=== PATIENT | female | born 1995 | race Caucasian/White ===

== ENCOUNTER 2019-04-29 18:40 | Emergency (ER) | payer OTHER, SELFPAY ==
[2019-04-29 18:51] VITALS: BP 112/73; PULSE 71; RESP 20; TEMP 36.9; O2SAT 100
--- NOTE | 2019-04-29 19:09 | ED.GENADULT ---
HPI - General Adult General Chief complaint: Upper Respiratory Infection Stated complaint: throat pain, med refill Time Seen by Provider: 04/29/19 19:09 Source: patient, family and RN notes reviewed Mode of arrival: ambulatory Limitations: no limitations History of Present Illness HPI narrative: 24 year old female who presents to [facility] care accompanied by significant other with complaints of continued severe post op throat pain from tonsillectomy done on the of this month. Patient states that she has been trying to get ahold of her doctor but not able to. Patient has healing white areas to tonsil region from surgical procedure no active bleeding noted. Patient continues to state pain is sharp rates it a 8/10 can't eat and drink due to pain. Patient denies any fevers chills or sweats, no nausea or episodes of vomiting. Has tried Ibuprofen but is not helping. MD complaint: post op pain Onset (ago): day(s) (since of thiss month) Location: mouth (throat) Radiation: non-radiation Severity: severe Severity scale (1-10): 8 (throat) Quality: sharp Pain Consistency: constant Relieving factors: medication Exacerbating factors: other (eating and drinking) Associated symptoms: denies other symptoms Treatments prior to arrival: other (prescription pain medication but is out) Related Data Allergies Allergy/AdvReac Type Severity Reaction Status Date / Time metronidazole Allergy Mild ITCHING,JOYCE Verified 04/29/19 19:02 H morphine Allergy Unknown h/a and Verified 04/29/19 19:02 lightheaded metoclopramide [From Reglan] Allergy Agitated Verified 04/29/19 19:02 promethazine AdvReac Intermediate Dizziness Verified 04/29/19 19:02 Review of Systems Review of Systems: Narrative: CONSTITUTIONAL: Denies fever, chills, or sweats. EYES: Denies visual changes, redness, or discharge. ENT: Denies rhinorrhea, congestion,positive sore throat, or otalgia. CARDIOVASCULAR: Denies chest pain, palpitations, or edema. RESPIRATORY: Denies cough or dyspnea. GASTROINTESTINAL: Denies abdominal pain, nausea, vomiting, or diarrhea. GENITOURINARY: Denies dysuria or hematuria. SKIN: Denies rash or itching. MUSCULOSKELETAL: Denies back pain, joint pain, or myalgia. NEUROLOGIC: Denies headache, numbness, or weakness. PSYCHIATRIC: Denies anxiety or depression. All systems reviewed & are unremarkable except as noted in HPI and below PMFSH Past Medical History Medical History (Updated 05/05/19 @ 11:48 by Erika Grubbs NP) Anxiety Depression Kidney calculi Surgical History Surgical History (Updated 05/02/19 @ 21:31 by Jose Lopez DO) History of x2 History of tonsillectomy Social History Social History (Updated 05/05/19 @ 11:49 by Erika Grubbs NP) Alcohol intake: current Living arrangements: with family Gender identity (if verbalized by the patient): Female Comments At time of signature, agree with nursing past medical, surgical, social and family history. There is no relevant family history pertinent to the presenting complaint Exam Narrative: Exam Narrative: GENERAL: Well-appearing, well-nourished, and in no acute distress. HEAD: Normocephalic, atraumatic. EYES: PERRLA and EOMI. ENT: Nares clear, no rhinorrhea or epistaxis. Mucous membranes moist.TM's normal with good light reflex, Healing tissue to back of throat from recent tonsillectomy no active bleeding,painful swallowing NECK: Supple.no lymphadenopathy CHEST: Clear to auscultation. No respiratory distress. HEART: Regular rate and rhythm. No murmur heard. Normal peripheral pulses. ABDOMEN: Soft, nontender, non distended, normal active bowel sounds. EXTREMITIES: Normal range of motion. No edema. SKIN: Warm, dry, no rash. NEURO: No focal deficits. Alert and oriented x3. Course Vital Signs Vital signs: Vital Signs Temperature 36.9 C 04/29/19 18:51 Pulse Rate 71 04/29/19 18:51 Respiratory Rate 20 04/29/19 18:51 Blood Pressure 112/73
== END 2019-04-29 19:40 | disposition home or self-care (01) ==
PROVIDERS: Emergency Provider Registered Nurse
DX: G89.18 Other acute postprocedural pain (principal); Z90.89 Acquired absence of other organs; F41.9 Anxiety disorder, unspecified; F32.9 Major depressive disorder, single episode, unspecified
CPT/HCPCS: 99213; G0463

== ENCOUNTER 2019-05-02 21:34 | Day surgery (SDC) | payer OTHER, SELFPAY ==
--- NOTE | 2019-05-02 21:40 | P.PNAN_ITS ---
Anes - Initial Pre Proc Eval Procedure: control post tonsillectomy bleed Date/Time: 05/02/19 21:40 Surgeon: Rad Barreto MD Pre Op Diagnosis: post op tonsillectomy bleed Pre Op Diagnosis: Tonsil Patient Data Age: 24 Gender: F Height: Weight: Allergies Allergy/AdvReac Type Severity Reaction Status Date / Time metronidazole Allergy Mild ITCHING,JOYCE Verified 04/29/19 19:02 H morphine Allergy Unknown h/a and Verified 04/29/19 19:02 lightheaded metoclopramide [From Reglan] Allergy Agitated Verified 04/29/19 19:02 promethazine AdvReac Intermediate Dizziness Verified 04/29/19 19:02 Home Medications Medication Instructions Recorded Confirmed Type acetaminophen-codeine 15 ml PO Q6H PRN #240 ml 04/29/19 Rx Patient hx anesthesia problems: none Family hx anesthesia problems: none [facility] Past Medical History Medical History (Updated 05/02/19 @ 21:30 by Jose Lopez DO) Anxiety Depression Surgical History Surgical History (Updated 05/02/19 @ 21:31 by Jose Lopez DO) History of x2 History of tonsillectomy Social History Social History Smoking status: Current every day smoker Alcohol intake: current Anes - Eval Final PreProcedure Day of Procedure 05/02/19 21:40 Patient weight: normal Heart: regular rate and rhythm Lungs: clear to auscultation and normal air movement Airway: Mallampati scale class II Neurological: alert and oriented Last oral intake: >/= 8 hours ASA classification: II Emergent: yes Anesthetic plan: proceed Anesthesia type and monitoring: general ETT and standard monitoring Informed Consent: The patient's anesthetic plan and its attendant risks and benefits were discussed with the patient/family/POA. Questions were solicited and answers provided to the satisfaction of the patient/family/POA.
--- NOTE | 2019-05-02 22:20 | P.OP_ITS ---
Procedure Note - Detailed Date of procedure: 05/02/19 Pre-op diagnosis: Tonsil Post-op diagnosis: same Procedure performed: Patient was prepped and draped in usual fashion after induction of anesthesia. The McIvor mouth gag was inserted. The tonsils were removed dissection technique hemostasis was obtained electrocautery. The red rubber catheter of the palate retracted the palate and the adenoids inspected the minimum amount of adenoids was removed with suction cautery. Patient awaken ed returned to recovery in good condition. Anesthesia: GLMA Surgeon: Rad Barreto MD Estimated blood loss (mL): 10 Drains: No Packing: No Pathology: none sent Complications: No immediate complications Condition: stable Disposition: same day
[2019-05-02 22:26] VITALS: BP 96/55; PULSE 106; RESP 15; O2SAT 100
[2019-05-02] MEDS: LACTATED RINGERS 1,000 ML 30 ML IV CONT (22:26)
--- NOTE | 2019-05-02 22:27 | P.HP_ITS ---
H&P: HPI History of Present Illness Chief complaint: Tonsil Narrative: Nancy Rebollar is a 24 year old female [facility] Past Medical History Medical History (Updated 05/02/19 @ 21:30 by Jose Lopez DO) Anxiety Depression Surgical History Surgical History (Updated 05/02/19 @ 21:31 by Jose Lopez DO) History of x2 History of tonsillectomy Social History Social History Smoking status: Current every day smoker Alcohol intake: current Meds Home Medications and Allergies Home Medications Medication Instructions Recorded Confirmed Type acetaminophen-codeine 15 ml PO Q6H PRN #240 ml 04/29/19 Rx Allergies Allergy/AdvReac Type Severity Reaction Status Date / Time metronidazole Allergy Mild ITCHING,JOYCE Verified 04/29/19 19:02 H morphine Allergy Unknown h/a and Verified 04/29/19 19:02 lightheaded metoclopramide [From Reglan] Allergy Agitated Verified 04/29/19 19:02 promethazine AdvReac Intermediate Dizziness Verified 04/29/19 19:02
--- NOTE | 2019-05-02 22:28 | P.HP_ITS ---
H&P: HPI History of Present Illness Chief complaint: Tonsil bleed Narrative: Nancy Rebollar is a 24 year old female REPLACED BY [facility] Past Medical History Medical History (Updated 05/02/19 @ 21:30 by Jose Lopez DO) Anxiety Depression Surgical History Surgical History (Updated 05/02/19 @ 21:31 by Jose Lopez DO) History of x2 History of tonsillectomy Social History Social History Smoking status: Current every day smoker Alcohol intake: current Meds Home Medications and Allergies Home Medications Medication Instructions Recorded Confirmed Type acetaminophen-codeine 15 ml PO Q6H PRN #240 ml 04/29/19 Rx Allergies Allergy/AdvReac Type Severity Reaction Status Date / Time metronidazole Allergy Mild ITCHING,JOYCE Verified 04/29/19 19:02 H morphine Allergy Unknown h/a and Verified 04/29/19 19:02 lightheaded metoclopramide [From Reglan] Allergy Agitated Verified 04/29/19 19:02 promethazine AdvReac Intermediate Dizziness Verified 04/29/19 19:02
[2019-05-02 22:35] VITALS: BP 104/58; PULSE 96; RESP 14; O2SAT 100
[2019-05-02 22:50] VITALS: BP 113/69; PULSE 74; RESP 18; O2SAT 99
[2019-05-02 22:58] VITALS: BP 128/72; PULSE 68; RESP 20
[2019-05-02 23:37] VITALS: BP 119/66; PULSE 71; RESP 20
--- NOTE | 2019-05-03 00:07 | HP_ITS ---
DATE OF SERVICE: 05/02/2019 PREOP DIAGNOSIS: Post tonsillectomy bleed. POSTOP DIAGNOSIS: Post tonsillectomy bleed. PROCEDURE: Control tonsillectomy bleed. She had a tonsillectomy 12 days ago, went to [facility], was transferred to [facility] and taken to the OR for cautery. Clot on the left fossa. Chest, clear. Heart, regular rhythm without murmurs. Abdomen, negative. Posttonsillectomy bleeding. D I MT: Ileana
== END 2019-05-02 23:42 | disposition home or self-care (01) ==
PROVIDERS: Visit Provider Otolaryngology
PROC: (CPT 42960; principal; 2019-05-02 21:45)
DX: J95.830 Postprocedural hemorrhage of a respiratory system organ or structure following a respiratory system procedure (principal); Y83.8 Other surgical procedures as the cause of abnormal reaction of the patient, or of later complication, without mention of misadventure at the time of the procedure; F41.8 Other specified anxiety disorders; F17.210 Nicotine dependence, cigarettes, uncomplicated
CPT/HCPCS: 42960; A9270; J0330; J1100; J2250; J2405; J2704; J3010

== ENCOUNTER 2019-05-08 13:02 | Observation (INO) | payer OTHER, SELFPAY ==
[2019-05-08 13:07] VITALS: BP 126/73; PULSE 79; RESP 18; TEMP 36.8; O2SAT 100
--- NOTE | 2019-05-08 14:04 | ED.GENADULT ---
HPI - General Adult General Chief complaint: Unspecified Stated complaint: post tonsilectomy bleeding Time Seen by Provider: 05/08/19 13:30 Source: patient Mode of arrival: ambulatory Limitations: no limitations History of Present Illness HPI narrative: Patient is a 24-year-old female who presents with left tonsillar bleed that began this morning. Patient had tonsillectomy with Dr. Barreto on the seventh. Patient had a recurrence of bleeding a week ago and had cauterization. Patient this morning began to have rebleeding notes mild discomfort. Patient denies any fever chills nausea vomiting or URI symptoms. Patient denies any anticoagulant use Related Data Allergies Allergy/AdvReac Type Severity Reaction Status Date / Time metronidazole Allergy Mild ITCHING,JOYCE Verified 05/08/19 13:48 H morphine Allergy Unknown h/a and Verified 05/08/19 13:48 lightheaded metoclopramide [From Reglan] Allergy Agitated Verified 05/08/19 13:48 promethazine AdvReac Intermediate Dizziness Verified 05/08/19 13:48 Review of Systems Review of Systems: All systems reviewed & are unremarkable except as noted in HPI and below PMFSH Past Medical History Medical History Anxiety Depression Kidney calculi Surgical History Surgical History History of x2 History of tonsillectomy Social History Social History Alcohol intake: current Gender identity (if verbalized by the patient): Female Exam Narrative: Exam Narrative: GENERAL: Well-appearing, well-nourished, and in no acute distress. HEAD: Normocephalic, atraumatic. EYES: PERRLA and EOMI. ENT: Nares clear, no rhinorrhea or epistaxis. Mucous membranes moist. Oropharynx with slight oozing of blood from the left posterior tonsil. Uvula midline no trismus or drooling NECK: Supple. No adenopathy or masses. CHEST: Clear to auscultation. No respiratory distress. No wheezes rales or rhonchi HEART: Regular rate and rhythm. No murmur heard. SKIN: Warm, dry, no rash. NEURO: No focal deficits. Alert and oriented x3. Cranial nerves II through XII grossly intact PSYCH: Normal mood and affect. Course Course Emergency Course: Patient in the room in no distress at this time aware of recommendations Consultations Consultation #1: Spoke with ENT who would like the patient placed in hospital with n.p.o. status with hydration Date: 05/08/19 Time: 14:33 Vital Signs Vital signs: Vital Signs Temperature 98.2 F 05/08/19 13:07 Pulse Rate 79 05/08/19 13:07 Respiratory Rate 18 05/08/19 13:07 Blood Pressure 126/73 05/08/19 13:07 Pulse Oximetry 100 05/08/19 13:07 Temperature 98.2 F 05/08/19 13:07 Pulse Rate 79 05/08/19 13:07 Respiratory Rate 18 05/08/19 13:07 Blood Pressure 126/73 05/08/19 13:07 Pulse Oximetry 100 05/08/19 13:07 Medical Decision Making MDM Narrative Medical decision making narrative: Patient will be admitted placed in hospital with ENT reevaluation today Vital Signs Vital Signs: Vital Signs Temperature 98.2 F 05/08/19 13:07 Pulse Rate 79 05/08/19 13:07 Respiratory Rate 18 05/08/19 13:07 Blood Pressure 126/73 05/08/19 13:07 Pulse Oximetry 100 05/08/19 13:07 Temperature 98.2 F 05/08/19 13:07 Pulse Rate 79 05/08/19 13:07 Respiratory Rate 18 05/08/19 13:07 Blood Pressure 126/73 05/08/19 13:07 Pulse Oximetry 100 05/08/19 13:07 Discharge Plan Discharge Clinical Impression: Postoperative haemorrhage of tonsil Patient Disposition: Still a Patient Condition: Stable Prescriptions: No Action acetaminophen-codeine 120-12 mg/5 mL solution 15 ml PO Q6H PRN (Reason: pain) Qty: 240 RF: 0 Follow-up/Referrals: UNKNOWN,DOCTOR [Primary Care Provider] -
[2019-05-08 14:34] LABS: Basophils Absolute Auto 0.1 K/mm3 (0.0-0.1); Basophils Percent Auto 1.1 % (0.2-1.2); Eosinophils Absolute Auto 0.1 K/mm3 (0-0.3); Eosinophils Percent Auto 2.9 % (0-4.4); Hematocrit 36.8 % (37.0-47.0); Hemoglobin 12.2 g/dL (12.0-15.0); Immature Granulocyte Absolute 0.01 K/mm3 (0.00-0.031); Immature Granulocyte Percent A 0.2 % (0-0.5); Lymphocytes Absolute Auto 1.73 K/mm3 (0.9-3.2); Lymphocytes Percent Auto 38.4 % (18.3-44.2); Mean Corpuscular HGB Conc 33.2 g/dl (32-36); Mean Corpuscular Hemoglobin 30.4 pg (26-34); Mean Corpuscular Volume 91.8 fl (80-100); Mean Platelet Volume 9.9 fl (7.4-10.4); Monocytes Absolute Auto 0.3 K/mm3 (0.1-0.6); Monocytes Percent Auto 6.4 % (2.6-8.5); Neutrophils Absolute Auto 2.3 K/mm3 (1.3-6.7); Platelet Count Result 263 k/mm3 (150-375); Red Blood Count 4.01 M/mm3 (4.2-5.4); Red Cell Distribution Width 12.1 % (11.5-14.5); White Blood Count 4.5 K/mm3 (4.5-10.0)
[2019-05-08 14:46] LABS: Blood Urea Nitrogen 10 mg/dL (7-17); Calcium 9.3 mg/dL (8.4-10.2); Carbon Dioxide 26 mmol/L (22-30); Chloride 100 mmol/L (98-107); Estimated CRCL calculation 119 ml/min; Estimated Glomerular Filt Rate > 60; Glucose 86 mg/dL (65-105); Sodium 140 mmol/L (137-145)
[2019-05-08 14:51] LABS: Prothrombin Time 12.6 Seconds (11.1-14.7)
[2019-05-08 14:52] LABS: Partial Thromboplastin Time 35.7 SECONDS (22.3-36.8)
[2019-05-08] MEDS: SODIUM CHLORIDE 0.9% IV 1,000 ML 150 ML IV CONT (15:08)
[2019-05-08 15:27] VITALS: BP 120/78; PULSE 75; RESP 18; O2SAT 100
[2019-05-08 15:56] VITALS: BP 120/73; PULSE 65; RESP 16; TEMP 36.2; O2SAT 100
--- NOTE | 2019-05-08 16:02 | ADMGEN ---
This patient, Nancy Rebollar, was admitted to Medical Room 347-. Patient/family oriented to hospital policies and general routines including ID bracelet, bed and alarms, visiting hours, pain management, procedures, bathroom and other care routines, personal items, smoking policy, room service/diet, and visiting hours. Valuables list has been completed. Information on how to activate the Rapid Response Team has been discussed. Patient/Family are encouraged to report perceived risks to care and to ask questions if they do not understand what they are told or what they should do.
[2019-05-08] MEDS: SODIUM CHLORIDE 0.9% IV 1,000 ML 125 ML IV CONT (17:01)
--- NOTE | 2019-05-08 17:39 | PM.IMHP ---
H&P: HPI History of Present Illness Chief complaint: postoperative tonsillar hemorrhage Narrative: Nancy Rebollar is a 24 year old female s/p tonsillectomy on the , suffered left tonsil bleed on the requiring take back and cautery in the OR. She came in today with more bleeding although much milder than on the and was seen in the ED and admitted for obs on my recommendation. No hx of coagulopathy. Has been compliant with diet and activity limitations. Pt of Dr. Barreto. Review of Systems Review of Systems: All systems reviewed & are unremarkable except as noted in HPI and below PMFSH Past Medical History Medical History Anxiety Depression Kidney calculi Surgical History Surgical History History of x2 History of tonsillectomy Family History Family History Father Anxiety Depression Hypertension Social History Social History Smoking status: Former smoker Tobacco type: e-cigarettes Second hand tobacco smoke exposure: Yes Alcohol intake: current Substance use: never Gender identity (if verbalized by the patient): Female Spiritual care concerns: No Agree to blood products: Yes Meds Home Medications and Allergies Home Medications Medication Instructions Recorded Confirmed Type acetaminophen-codeine 15 ml PO Q6H PRN #240 ml 04/29/19 05/08/19 Rx ibuprofen [Children's Ibuprofen] 200 mg PO TID PRN 05/08/19 05/08/19 History [id number]-[id number] 1 cap PO DAILY 05/08/19 05/08/19 History [One-A-Day Women's 1] sertraline [Zoloft] 100 mg PO DAILY 05/08/19 05/08/19 History Allergies Allergy/AdvReac Type Severity Reaction Status Date / Time metronidazole Allergy Mild ITCHING,JOYCE Verified 05/08/19 16:09 H morphine Allergy Unknown h/a and Verified 05/08/19 16:09 lightheaded metoclopramide [From Reglan] Allergy Agitated Verified 05/08/19 16:09 promethazine AdvReac Intermediate Dizziness Verified 05/08/19 16:09 Vital Signs Vital Signs - 24 hr 05/08/19 13:07 05/08/19 15:27 05/08/19 15:56 Temperature 36.8 C 36.2 C L Pulse Rate 79 75 65 Respiratory Rate 18 18 16 Blood Pressure 126/73 120/78 120/73 Pulse Oximetry 100 100 100 Exam Narrative: Exam Narrative: Non-distressed. No active bleeding being spit up. No respiratory difficulty Exam of tonsil fossa shows eschar on left from recent cautery. Right tonsillar fossa healed nicely. No active bleeding noted on either side at time of exam H&P: Results Labs Labs: Short CBC 05/08/19 Range/Units 14:26 WBC 4.5 (4.5-10.0) K/mm3 Hgb 12.2 (12.0-15.0) g/dL Hct 36.8 L (37.0-47.0) % Plt Count 263 (150-375) k/mm3 BMP 05/08/19 14:26 Sodium 140 Potassium 4.0 Chloride 100 Carbon Dioxide 26 BUN 10 Creatinine 0.50 L Glucose 86 Calcium 9.3 Assessment and Plan Assessment and plan (1) Postoperative haemorrhage of tonsil: Status: Acute Assessment and Plan: Nancy had tonsillectomy on 04/20/2019, followed by bleed on 05/02/2019 and came to ED today with another bleed form the left side, although much less significant. Exam shows no active bleeding at time. Given that it is her second postoperative bleed, recommend admission for overnight observation, NPO and IVF, pain management. If bleeding starts up, will plan to go to OR for control of hemorrhage. Otherwise can go home in AM. Quintin Navarro M.D.
[2019-05-08 18:00] VITALS: BP 130/74; PULSE 66; RESP 16; TEMP 36.2; O2SAT 100
[2019-05-08] MEDS: FAMOTIDINE 20 MG/2 ML VIAL IV PUSH (20:08)
[2019-05-08 20:09] VITALS: BP 138/89; PULSE 69; O2SAT 100
[2019-05-08] MEDS: ONDANSETRON INJ 4 MG/2 ML VIAL IV PUSH (20:09)
[2019-05-08 20:30] VITALS: PULSE 69; RESP 16; O2SAT 100
--- NOTE | 2019-05-08 22:30 | WPDCN ---
Assessment and Plan Assessment and plan (1) Postoperative haemorrhage of tonsil: Status: Acute Assessment and Plan: Management per Dr. Navarro. Continue NPO status and IV fluid rehydration. Tylenol with codeine available as needed. (2) Depression: Code(s): F32.9 - Major depressive disorder, single episode, unspecified Status: Acute Assessment and Plan: Well controlled on Zoloft. (3) Anxiety: Code(s): F41.9 - Anxiety disorder, unspecified Status: Acute Assessment and Plan: Well controlled on Zoloft as above. HPI Data of Consult Date/Time: 05/08/19 21:45 Requesting Physician: Quintin Navarro MD Primary Care Provider: UNKNOWN,DOCTOR Consult Narrative Narrative: Nancy Rebollar is a very pleasant 24-year-old female whom the hospitalist service has been consulted for medical management as the patient is being admitted for observation due to tonsillar bleed. She is status post tonsillectomy May 10, [address] Barreto and had a relatively smooth 1st week postoperatively. When transitioning to more solid foods, she developed bleeding and was taken back to the OR on May 02, 2019 for cautery of the left tonsillar fossa. She is once again back on a liquid diet. Today, she began having mild bleeding and oozing and is being admitted overnight for observation. Dr. Navarro recommends NPO status with IV fluid rehydration and analgesics as needed. Should she continue to bleed, she may need to return to the OR tomorrow. At this time, her only complaint is of discomfort in the left side of the throat, for which she has been giving IV Ofirmev without much benefit. She is hesitant to take her Tylenol with codeine as she is worried that she may start bleeding again and be unaware of that given the pain medication. She is also concerned about the weight loss she has had in the last 2 weeks, she is currently breast-feeding her 7-month-old daughter. She denies fever, chills, and sweats. No headache. No shortness of breath. Mild nausea but no vomiting. Review of Systems Review of Systems: Narrative: Twelve systems were reviewed with pertinent positives and negatives as per HPI. No recent cold or flu-like symptoms. She is healthy, and is on medication only for anxiety and depression. Her symptoms are well controlled on Zoloft. Except as documented, all other systems were reviewed and are negative. [facility] Past Medical History Medical History Anxiety Depression Kidney calculi Surgical History Surgical History History of x2 History of tonsillectomy Family History Family History Father Anxiety Depression Hypertension Social History Social History (Updated 05/08/19 @ 23:07 by Breann Sotelo PA-C) Social History: The patient lives in [place] with her boyfriend, there 2-1/2-year-old daughter, and her 7-month-old daughter. 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 She drinks alcohol socially and in moderation. No drug use. She designates her mother is her surrogate decision maker and she wishes to be a full code. Smoking status: Former smoker Tobacco type: e-cigarettes Second hand tobacco smoke exposure: Yes Alcohol intake: current Substance use: never Gender identity (if verbalized by the patient): Female Spiritual care concerns: No Agree to blood products: Yes Meds Home Medications and Allergies Home Medications Medication Instructions Recorded Confirmed Type acetaminophen-codeine 15 ml PO Q6H PRN #240 ml 04/29/19 05/08/19 Rx ibuprofen [Children's Ibuprofen] 200 mg PO TID PRN 05/08/19 05/08/19 History [id number]-omeg3s 1 cap PO DAILY 05/08/19 05/08/19 Hist
[2019-05-09] VITALS: BP 115/69; PULSE 69; RESP 16; TEMP 36.1; O2SAT 100
[2019-05-09] MEDS: SODIUM CHLORIDE 0.9% IV 1,000 ML 125 ML IV CONT (01:23)
[2019-05-09] MEDS: ACETAMINOPHEN/CODEINE ELIX 120-12 MG/5 ML UDC PO (01:28)
[2019-05-09 02:20] VITALS: BP 132/76; PULSE 688; RESP 16; TEMP 36.4; O2SAT 100
--- NOTE | 2019-05-09 03:06 | WPDANESEPPF ---
Anes - Initial Pre Proc Eval Procedure: Operation Date: 05/09/19 02:30 Proposed Procedures p Post Op Tonsil Bleed - Quintin Navarro MD Date/Time: 05/09/19 03:06 Surgeon: Quintin Navarro MD Pre Op Diagnosis: postoperative tonsillar hemorrhage Patient Data Age: 24 Gender: F Height: 5 ft 4 in Weight: 53 kg Last Vital Signs Temp 36.4 C L 05/09/19 02:20 Pulse 688 H 05/09/19 02:20 Resp 16 05/09/19 02:20 BP 132/76 05/09/19 02:20 Pulse Ox 100 05/09/19 02:20 Allergies Allergy/AdvReac Type Severity Reaction Status Date / Time metronidazole Allergy Mild ITCHING,JOYCE Verified 05/08/19 16:09 H morphine Allergy Unknown h/a and Verified 05/08/19 16:09 lightheaded metoclopramide [From Reglan] Allergy Agitated Verified 05/08/19 16:09 promethazine AdvReac Intermediate Dizziness Verified 05/08/19 16:09 Home Medications Medication Instructions Recorded Confirmed Type acetaminophen-codeine 15 ml PO Q6H PRN #240 ml 04/29/19 05/08/19 Rx ibuprofen [Children's Ibuprofen] 200 mg PO TID PRN 05/08/19 05/08/19 History 209-[id number]-[id number] 1 cap PO DAILY 05/08/19 05/08/19 History [One-A-Day Women's 1] sertraline [Zoloft] 100 mg PO DAILY 05/08/19 05/08/19 History Laboratory Tests 05/08/19 05/08/19 05/08/19 14:26 14:26 14:26 WBC 4.5 K/mm3 K/mm3 (4.5-10.0) RBC 4.01 M/mm3 L M/mm3 (4.2-5.4) Hgb 12.2 g/dL g/dL (12.0-15.0) Hct 36.8 % L % (37.0-47.0) MCV 91.8 fl fl (80-100) MCH 30.4 pg pg (26-34) MCHC 33.2 g/dl g/dl (32-36) RDW 12.1 % % (11.5-14.5) Plt Count 263 k/mm3 k/mm3 (150-375) MPV 9.9 fl fl (7.4-10.4) Immature Gran % (Auto) 0.2 % % (0-0.5) Neut % (Auto) 51.0 % % (45.5-73.1) Lymph % (Auto) 38.4 % % (18.3-44.2) [place] % (Auto) 6.4 % % (2.6-8.5) Eos % (Auto) 2.9 % % (0-4.4) Baso % (Auto) 1.1 % % (0.2-1.2) Lymph # (Auto) 1.73 K/mm3 K/mm3 (0.9-3.2) [place] # (Auto) 0.3 K/mm3 K/mm3 (0.1-0.6) Eos # (Auto) 0.1 K/mm3 K/mm3 (0-0.3) Baso # (Auto) 0.1 K/mm3 K/mm3 (0.0-0.1) Abs Immat Gran (auto) 0.01 K/mm3 K/mm3 (0.00-0.031) Absolute Neuts (auto) 2.3 K/mm3 K/mm3 (1.3-6.7) Absolute Nucleated RBC 0.0 K/mm3 K/mm3 (0.0-0.012) Nucleated RBC % 0.0 % % (0.0-0.2) PT 12.6 Seconds Seconds (11.1-14.7) INR 1.0 APTT 35.7 SECONDS SECONDS (22.3-36.8) Sodium 140 mmol/L mmol/L (137-145) Potassium 4.0 mmol/L mmol/L (3.4-5.0) Chloride 100 mmol/L mmol/L (98-107) Carbon Dioxide 26 mmol/L mmol/L (22-30) BUN 10 mg/dL mg/dL (7-17) Creatinine 0.50 mg/dL L mg/dL (0.7-1.0) Estim Creat Clear Calc 119 ml/min ml/min Estimated GFR > 60 (59 - ) Glucose 86 mg/dL mg/dL (65-105) Calcium 9.3 mg/dL mg/dL (8.4-10.2) Patient hx anesthesia problems: none Family hx anesthesia problems: none PMFSH Past Medical History Medical History Anxiety Depression Kidney calculi Surgical History Surgical History History of x2 History of tonsillectomy Family History Family History Father Anxiety Depression Hypertension Social History Social History Social History: The patient lives in [place] with her boyfriend, there 2-1/2-year-old daughter, and her 7-month-old daughter. 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 She drinks alcohol socially and in moderation. No drug use. She designates her mother is her
--- NOTE | 2019-05-09 03:12 | PC.NURSE ---
PT WAS TAKEN DOWN TO OR AT 0245, PTS MOM WAS TAKEN TO WAITING ROOM AFTER MEETING OR NURSE.
--- NOTE | 2019-05-09 03:29 | PM.PROC ---
Procedure Note - Detailed Date of procedure: 05/09/19 Pre-op diagnosis: postoperative tonsillar hemorrhage Post-op diagnosis: same Procedure performed: Control of tonsillar hemorrhage Description of procedure: On the date of surgery, patient was found to be bleeding from left tonsillar fossa. Decision made to go to OR for control. She was brought to OR and placed under GETA. Timeout was performed, and she was prepped and draped in standard fashion. Shoulder roll placed. A Mcguiver retractor placed in oral cavity and pt suspended from bridge[place] stand. Oropharynx examined. Clot within left tonsil bed. Removed, and bleeding was noted. Suction bovie electrocautery at 20 utilized to control all active bleeding, primarily from mid-inferior pole. Carefully cauterized and observed until all bleeding controlled. Some minimal right superior bleeding noted and was cauterized. Pt tolerated without complication and was returned to anesthesia who woke her up and extubated her and transferred to PACU for recovery in stable condition. No injury to lips, gums, teeth. Anesthesia: GETA Surgeon: Quintin Navarro MD Estimated blood loss (mL): 10 Drains: No Packing: No Pathology: none sent Complications: No immediate complications Condition: stable Disposition: PACU Findings: Left tonsil bleed.
[2019-05-09] MEDS: LACTATED RINGERS 1,000 ML 30 ML IV CONT (03:47)
[2019-05-09 03:50] VITALS: BP 134/92; PULSE 70; RESP 15; TEMP 36.6; O2SAT 98
[2019-05-09 04:05] VITALS: BP 127/79; PULSE 65; RESP 16; O2SAT 100
[2019-05-09 04:21] VITALS: BP 122/86; PULSE 69; RESP 20; O2SAT 100
[2019-05-09 04:35] VITALS: BP 132/83; PULSE 66; RESP 12; O2SAT 100
--- NOTE | 2019-05-09 04:40 | SUR.PHASEI ---
0435 called to after hours waiting room to update mom, dr kelley never did speak with her. 0440 report called to floor
--- NOTE | 2019-05-09 05:48 | PC.NURSE ---
PT returned from PACU about 0445.Vitals WNL AOx3 no c/o pain. Report received from Navdeep SAF[employer] AND HEALTH MANAGER.
[2019-05-09] MEDS: SERTRALINE HCL 50 MG TABLET 100 MG PO (08:38)
[2019-05-09] MEDS: MULTIVIT/MIN/PREN/FOL AC/IRON TABLET 1 TAB PO (08:38)
[2019-05-09] MEDS: FAMOTIDINE 20 MG/2 ML VIAL IV PUSH (08:38)
--- NOTE | 2019-05-09 14:31 | P.PNIM_ITS ---
Subjective Date/time seen: 05/09/19 14:31 No visit by Hospitalist Service on this day; patient discharged prior to being seen Objective Data Vital Signs Vital Signs: Vital Signs - 24 hr 05/08/19 15:27 05/08/19 15:56 05/08/19 18:00 Temperature 97.1 F L 97.1 F L Pulse Rate 75 65 66 Respiratory Rate 18 16 16 Blood Pressure 120/78 120/73 130/74 Pulse Oximetry 100 100 100 05/08/19 20:09 05/08/19 20:30 05/09/19 00:00 Temperature 97.0 F L Pulse Rate 69 69 69 Respiratory Rate 16 16 Blood Pressure 138/89 115/69 Pulse Oximetry 100 100 100 05/09/19 02:20 05/09/19 03:50 05/09/19 04:05 Temperature 97.5 F L 97.8 F Pulse Rate 688 H 70 65 Respiratory Rate 16 15 16 Blood Pressure 132/76 134/92 H 127/79 Pulse Oximetry 100 98 100 05/09/19 04:21 05/09/19 04:35 Temperature Pulse Rate 69 66 Respiratory Rate 20 12 Blood Pressure 122/86 132/83 Pulse Oximetry 100 100 Intake/Output Intake/Output: Intake & Output 05/06/19 05/07/19 05/08/19 05/09/19 23:59 23:59 23:59 23:59 Intake Total 950 1600 Balance 950 1600 Labs Labs: Laboratory Results - last 24 hr 05/08/19 05/08/19 05/08/19 14:26 14:26 14:26 WBC 4.5 RBC 4.01 L Hgb 12.2 Hct 36.8 L MCV 91.8 MCH 30.4 MCHC 33.2 RDW 12.1 Plt Count 263 MPV 9.9 Immature Gran % (Auto) 0.2 Neut % (Auto) 51.0 Lymph % (Auto) 38.4 Baxter % (Auto) 6.4 Eos % (Auto) 2.9 Baso % (Auto) 1.1 Lymph # (Auto) 1.73 Baxter # (Auto) 0.3 Eos # (Auto) 0.1 Baso # (Auto) 0.1 Abs Immat Gran (auto) 0.01 Absolute Neuts (auto) 2.3 Absolute Nucleated RBC 0.0 Nucleated RBC % 0.0 PT 12.6 INR 1.0 APTT 35.7 Sodium 140 Potassium 4.0 Chloride 100 Carbon Dioxide 26 BUN 10 Creatinine 0.50 L Estim Creat Clear Calc 119 Estimated GFR > 60 Glucose 86 Calcium 9.3
--- NOTE | 2019-05-09 16:03 | PCCCNOTE ---
On 05/09/19, the student, Nickie Ruiz, provided care and completed [facility] documentation on this patient. I have reviewed the student's documentation and agree with the findings.
--- NOTE | 2019-05-14 17:06 | PM.DS ---
DS: Diagnosis Admitting Diagnosis Admitting Diagnosis: Postoperative tonsil bleed DS: Summary Time Spent with Patient Time attestation: Total time spent providing and/or coordinating discharge services: Exam Narrative: Exam Narrative: Left tonsil bleed, s/p cautery in OR DS: Data Procedures/Treatments: cautery in OR of tonsil bleed Discharge Plan Discharge Attending physician on discharge: Quintin Navarro Consulting providers: Matias More ; Breann Sotelo ; Marlee Villaseñor Discharging Clinician: Quintin Navarro Anticipated Discharge Date/Time: 05/09/19 11:33 Patient Disposition: Home, Self-Care Activity: may shower and no straining Diet: other - see discharge instructions Discharge Instructions: Soft diet for another 2 weeks. No straining or heavy lifting. Potentially go back to work next week, but may need to delay further (will defer to Estevan). Patient Instructions: Antibiotic Form Stand Alone Forms: General Discharge Information Follow-up/Referrals: Rad Barreto MD [Physician] - Discharge Medications: Continued acetaminophen-codeine 120-12 mg/5 mL solution 15 ml PO Q6H PRN (Reason: pain) Qty: 240 RF: 0 sertraline [Zoloft] 100 mg Tablet 100 mg PO DAILY RF: 0 ibuprofen [Children's Ibuprofen] 100 mg/5 mL Suspension 200 mg PO TID PRN (Reason: Pain) RF: 0 One-A-Day Women's 1 28 mg iron- 800 mcg-235 mg Capsule 1 cap PO DAILY RF: 0 Date of admission: 05/08/19 14:36 Primary Care Provider: UNKNOWN,DOCTOR Admitting Provider: Quintin Navarro Discharge Date/Time: 05/09/19 12:54 Attending physician on admission: Quintin Navarro Condition: Stable
== END 2019-05-09 12:54 | disposition home or self-care (01) ==
LOC: ANHED 14:36 → ANH3MED 15:17
PROVIDERS: Emergency Medicine Emergency Medical Services; Admitting Provider Otolaryngology; Emergency Provider Emergency Medicine; Visit Provider Otolaryngology
PROC: (CPT 42960; principal; 2019-05-09 02:30)
DX: K91.840 Postprocedural hemorrhage of a digestive system organ or structure following a digestive system procedure (principal); F32.9 Major depressive disorder, single episode, unspecified; F41.9 Anxiety disorder, unspecified; Z87.891 Personal history of nicotine dependence
CPT/HCPCS: 42960; 36415; 80048; 85025; 85610; 85730; 96361; 96374; 96375; 96376; 99285; A9270; G0378; G0379; J0131; J0330; J2250; J2405; J2704; J3010; J7030; J7120

== ENCOUNTER 2021-04-24 03:31 | Day surgery (SDC) | payer OTHER, SELFPAY ==
[2021-04-23 15:49] VITALS: BMI 20.5
--- NOTE | 2021-04-23 15:56 | PC.NURSE ---
Report to the Outpatient Waiting Room, entrance under the green pavilion located off [facility], at time ____814___ on date _04/24/2021 . OR Time: __1014 . - You will be asked a series of questions to screen for COVID 19 for your protection. - A mask is required within the hospital. - One visitor is allowed at this time. Preoperative COVID Testing Requirements: No COVID Test needed if: (proof is required; if not received patient will have Rapid Test prior to entry) - Patient has received COVID Vaccine at least 14 days prior to procedure date or - Patient has positive COVID test result within last 90 days of surgery date. COVID Test needed if above criteria is not met If not COVID vaccinated a COVID test must be conducted within 72 hours of surgery and patient is asked to isolate self from time of testing until procedure. You will go to the [facility] for your COVID testing. The [facility] is located at the corner of [address] [facility]. You will only be called if COVID results are positive and your surgeon may reschedule your elective surgery date. Patients may have clear liquids (water, carbonated beverages, clear teas, apple juice) until 3 hours prior to surgery with a maximum of 20 ounces. - No food from midnight until time of surgery - Infants may have breast milk until 4 hours before surgery, infant formula 6 hours prior to surgery. - Children will be allowed to drink immediately following surgery. If applicable, please bring a bottle or sippy cup to assist with drinking. Juice, water, soda, and popsicles are readily available. For infants on formula, please bring formula the day of surgery. Pacifiers are allowed. Take the following medications with a SIP of water the morning of surgery: Medications to discontinue per physician Date to take last dose Please no make-up, nail turkmen, hairspray, perfume, deodorant, or body powder the day of surgery. No jewelry (including any body piercings) or valuables the day of surgery, leave them at home. Please take a shower or bath the night before, or the morning of, surgery with an antibacterial soap. Wear comfortable, loose fitting clothing. Children are encouraged to wear pajamas. - Jewelry must be removed prior to entering the operating room. Rings and piercings that are not removed may be cut off. - The hospital will not accept responsibility for valuables. - Please leave all valuables, including medications, at home the day of surgery. If you are going home after surgery, a licensed passenger coach driver must drive you home. - NO public transportation without another adult. - We recommend that an adult stay with you for 24 hours following discharge. - We also recommend that you do not drive, make important decision, drink alcoholic beverages, or take any drugs that were not prescribed by your health care provider for at least 24 hours after your discharge time. For Pediatric surgeries, we recommend two adults accompany the child home (only one inside the building at this time). Follow any additional instructions given to you from your surgeon. Telephone instructions given to __patient and asked if any additional questions and then verbalized understanding. Patient advised to call surgeon office or pre surgery nurse liaison [phone] if any additional questions.
--- NOTE | 2021-04-24 07:09 | PM.IMHP ---
H&P: HPI History of Present Illness Date/Time: 04/24/21 07:09 18-year-old 3. Two admitted for suction D&C secondary to 1st trimester missed AB. The patient had an early ultrasound followed by a 2nd which showed no growth and no heart tones she was offered watchful waiting versus suction D&C and o agreed to the latter. risks and benefits reviewed in full Chief Complaint: missed AB 1st trimester Review of Systems Review of Systems: All systems reviewed & are unremarkable except as noted in HPI and below PMFSH Past Medical History Medical History Anxiety Depression Kidney calculi Surgical History Surgical History History of x2 History of tonsillectomy Family History Family History Father Anxiety Depression Hypertension Social History Social History Social History: The patient lives in [place] with her boyfriend, there 2-1/2-year-old daughter, and her 7-month-old daughter. 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 She drinks alcohol socially and in moderation. No drug use. She designates her mother is her surrogate decision maker and she wishes to be a full code. Smoking status: Former smoker Tobacco type: e-cigarettes/vaping Second hand tobacco smoke exposure: Yes Smoking end date: 02/25/21 Alcohol intake: former Substance use: never Living arrangements: with family Gender identity (if verbalized by the patient): Female Spiritual care concerns: No Agree to blood products: Yes Meds Home Medications and Allergies Home Medications Medication Instructions Recorded Confirmed Type One-A-Day Women's 1 1 cap PO DAILY 05/08/19 04/23/21 History sertraline [Zoloft] 100 mg PO DAILY 05/08/19 04/23/21 History Allergies Allergy/AdvReac Type Severity Reaction Status Date / Time metoclopramide [From Reglan] Allergy Intermediate Agitated Verified 04/23/21 15:48 metronidazole Allergy Mild ITCHING,JOYCE Verified 05/16/19 11:26 H morphine Allergy Mild h/a and Verified 04/23/21 15:48 lightheaded promethazine AdvReac Intermediate Dizziness Verified 05/16/19 11:26 Exam Const: General: no acute distress Eyes: General: appearance normal, both eyes and all related structures Neck: Neck: supple and no JVD Thyroid: thyroid normal Resp: Effort & Inspection: normal respiratory effort Auscultation: clear to auscultation bilaterally Cardio: Rate: regular rate Rhythm: regular rhythm GI: Inspection: non-distended GI Palp: Yes Soft to palpation, No Tenderness to palpation present (GI) and No Guarding due to palpation present (GI) Auscultation: normal bowel sounds : Speculum Exam - Cervix: normal appearance of the cervix Bimanual exam- vagina & uterus: enlarged Bimanual Exam- Adnexa, other: normal adnexae Skin: General skin exam: no rashes or lesions noted Extrem: General: normal to inspection and no edema Psych: Mental Status: mental status grossly normal Affect: normal affect Assessment and Plan Additional Plan Impression: 1St trimester missed AB Plan: Suction dilatation curettage
--- NOTE | 2021-04-24 07:11 | WPDHPUPDATE1 ---
History and Physical Update Update Date/Time: 04/24/21 07:11 History and Physical has been reviewed, including an updated exam of the patient. There are NO changes in the patient's condition. Risks, benefits, and alternatives have been discussed and questions answered. Patient agrees to proceed with procedure.
[2021-04-24 08:30] VITALS: BP 104/72; PULSE 71; RESP 18; TEMP 36.8; O2SAT 100
[2021-04-24] MEDS: ACETAMINOPHEN 500 MG TABLET 1000 MG PO (09:24)
[2021-04-24] MEDS: LACTATED RINGERS 1,000 ML 30 ML IV CONT (09:24)
--- NOTE | 2021-04-24 09:33 | WPDANESEPPF ---
Anes - Initial Pre Proc Eval Procedure: Operation Date: 04/24/21 10:15 Proposed Procedures p Suction Dilatation and Curettage - Niles Ackerman MD Date/Time: 04/24/21 09:33 Surgeon: Niles Ackerman MD Pre Op Diagnosis: missed AB Patient Data Age: 26 Gender: F Height: 1.63 m Weight: 54.43 kg Allergies Allergy/AdvReac Type Severity Reaction Status Date / Time metoclopramide [From Reglan] Allergy Intermediate Agitated Verified 04/23/21 15:48 metronidazole Allergy Mild ITCHING,JOYCE Verified 05/16/19 11:26 H morphine Allergy Mild h/a and Verified 04/23/21 15:48 lightheaded promethazine AdvReac Intermediate Dizziness Verified 05/16/19 11:26 Home Medications Medication Instructions Recorded Confirmed Type One-A-Day Women's 1 1 cap PO DAILY 05/08/19 04/23/21 History sertraline [Zoloft] 100 mg PO DAILY 05/08/19 04/23/21 History Patient hx anesthesia problems: none Family hx anesthesia problems: none Results Review: All pre-operative results and documents have been reviewed as part of the pre-operative evaluation. [facility] Past Medical History Medical History Anxiety Depression Kidney calculi Surgical History Surgical History History of x2 History of tonsillectomy Family History Family History Father Anxiety Depression Hypertension Social History Social History Social History: The patient lives in [place] with her boyfriend, there 2-1/2-year-old daughter, and her 7-month-old daughter. 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 She drinks alcohol socially and in moderation. No drug use. She designates her mother is her surrogate decision maker and she wishes to be a full code. Smoking status: Former smoker Tobacco type: e-cigarettes/vaping Second hand tobacco smoke exposure: Yes Smoking end date: 02/25/21 Alcohol intake: former Substance use: never Living arrangements: with family Gender identity (if verbalized by the patient): Female Spiritual care concerns: No Agree to blood products: Yes Anes - Eval Final PreProcedure Day of Procedure 04/24/21 09:33 Patient weight: normal Heart: regular rate and rhythm Lungs: clear to auscultation Airway: Mallampati scale class 1 Neurological: alert and oriented Last oral intake: >/= 8 hours ASA classification: II Emergent: no Anesthetic plan: proceed Anesthesia type and monitoring: general GIVS and standard monitoring Results Review: All pre-operative results and documents have been reviewed as part of the pre-operative evaluation. Informed Consent: The patient's anesthetic plan and its attendant risks and benefits were discussed with the patient/family/POA. Questions were solicited and answers provided to the satisfaction of the patient/family/POA.
[2021-04-24 09:37] LABS: Hematocrit 37.4 % (37.0-47.0); Hemoglobin 13.4 g/dL (12.0-15.0)
--- NOTE | 2021-04-24 10:05 | W.PM.PROC2 ---
Procedure Note - Detailed Date of Procedure 04/24/21 Pre-op Diagnosis missed AB Post-op Diagnosis same Procedure Performed Suction dilatation and curettage Surgeon Nlies Ackerman MD Anesthesia MAC and local Indications this is a 26-year-old female who is admitted for suction D and C secondary to missed AB Findings products of conception Description of Procedure patient was prepped and draped in the normal sterile fashion placed in the dorsal lithotomy position. Under excellent IV sedation weighted speculum placed posterior fornix vagina. Anterior lip of the cervix grasped with single-tooth tenaculum and 2.5cc of 1% xylocaine anesthesia placed at 2, 4, 8, 10:00 a.m. of the cervix. Uterus sounded to 10cm. Serial dilatation with fragmented dilators performed followed passes the 10. Suction curette removing a large amount of tissue. When a good grating sound was heard the procedure was terminated. All sponge, needle, instrument counts were correct. There were no immediate complications Estimated Blood Loss 25 Drains No Packing No Pathology yes Complications No immediate complications Condition stable Disposition PACU
[2021-04-24 10:15] VITALS: BP 108/60; PULSE 73; RESP 16; O2SAT 98
--- NOTE | 2021-04-24 10:19 | SUR.OPER ---
Products of conception specimen collected and sent to [facility] for chromosome studies. Chromosome study form completed by
[2021-04-24 10:45] VITALS: BP 108/73; PULSE 80; RESP 18
[2021-04-24] MEDS: oxyCODONE HCL (*CRX) 5 MG TAB IR PO (11:09)
== END 2021-04-24 11:45 | disposition home or self-care (01) ==
PROVIDERS: PCP Nurse Practitioner Family; Visit Provider Obstetrics & Gynecology
PROC: (CPT 59812; principal; 2021-04-24 10:15)
DX: O02.1 Missed abortion (principal); F41.8 Other specified anxiety disorders; Z87.891 Personal history of nicotine dependence
CPT/HCPCS: 59812; 36415; 81229; 85014; 85018; 88233; 88262; 88305; A9270; J2250; J2704; J3010; J7120

== ENCOUNTER 2021-05-31 10:23 | Emergency (ER) | payer OTHER, SELFPAY ==
[2021-05-31 10:34] VITALS: BP 113/66; PULSE 81; RESP 16; TEMP 36.6; O2SAT 100
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
== END 2021-05-31 12:27 | disposition home or self-care (01) ==
PROVIDERS: Emergency Provider Nurse Practitioner; PCP Nurse Practitioner Family
DX: H69.93 Unspecified Eustachian tube disorder, bilateral (principal); J02.9 Acute pharyngitis, unspecified; F41.9 Anxiety disorder, unspecified; F32.A Depression, unspecified
CPT/HCPCS: 87081; 87880; 99213; G0463

== ENCOUNTER 2021-06-28 23:19 | Emergency (ER) | payer OTHER, SELFPAY ==
[2021-06-28 23:43] VITALS: BP 105/61; PULSE 87; RESP 19; TEMP 36.6; O2SAT 100
--- NOTE | 2021-06-29 00:59 | ED.FEMALEGU ---
HPI - Female Genitourinary General Chief complaint: Vaginal Bleeding <Radha Alvarez PA-C - Last Filed: 06/29/21 03:22> Stated complaint: vaginal bleeding <Radha Alvarez PA-C - Last Filed: 06/29/21 03:22> Time Seen by Provider: 06/29/21 00:23 <Radha Alvarez PA-C - Last Filed: 06/29/21 03:22> History of Present Illness HPI Narrative: Patient is a 26-year-old A2 female with a history of recent D&C in April, who presents emergency department for evaluation of vaginal bleeding for the past week. Patient states that since her D&C she has had 2 regular menstrual cycles occurring May 14 and June 04, and they lasted about 3-5 days. She states that her current episode of bleeding began on June 19, and has been increasing in severity since onset. She was put on Provera by her OB without relief. Today she states she was passing plum sized blood clots, was bleeding through two pads an hour, and she began to feel lightheaded. Additionally developed some cramping across her lower abdomen. She spoke with her OB doctor (Iris Estrada) who recommended ED evaluation. No loss of consciousness, chest pain, shortness of breath, headaches, fevers. <Radha Alvarez PA-C - Last Filed: 06/29/21 03:22> Related Data Home medications: Home Medications Medication Instructions Recorded Confirmed One-A-Day Women's 1 1 cap PO DAILY 05/08/19 05/31/21 sertraline [Zoloft] 100 mg PO DAILY 05/08/1922 <Radha Alvarez PA-C - Last Filed: 06/29/21 03:22> Allergies/Adverse reactions: Allergies Allergy/AdvReac Type Severity Reaction Status Date / Time metoclopramide [From Reglan] Allergy Intermediate Agitated Verified 05/31/21 10:34 metronidazole Allergy Mild ITCHING,JOYCE Verified 05/31/21 10:34 H morphine Allergy Mild h/a and Verified 05/31/21 10:34 lightheaded promethazine AdvReac Intermediate Dizziness Verified 05/31/21 10:34 <Radha Alvarez PA-C - Last Filed: 06/29/21 03:22> Review of Systems Review of Systems: Gen.: Denies fevers or chills Eyes: Denies eye pain or visual change ENT: Denies congestion Respiratory: Denies shortness of breath or cough CV: Denies chest pain or palpitations GI: Reports abdominal pain. nausea, emesis or diarrhea : Reports vaginal bleeding. Denies burning, urgency, frequency or hematuria Musculoskeletal: Denies back pain or muscle pain Neuro: Denies numbness, tingling, weakness or focal weakness Skin: Denies rash Except as documented, all other systems reviewed and negative <Radha Alvarez PA-C - Last Filed: 06/29/21 03:22> All systems reviewed & are unremarkable except as noted in HPI and below <Radha Alvarez PA-C - Last Filed: 06/29/21 03:22> [facility] Past Medical History Medical History: Medical History Anxiety Depression Kidney calculi <Radha Alvarez PA-C - Last Filed: 06/29/21 03:22> Surgical History Surgical History: Surgical History History of x2 History of tonsillectomy <Radha Alvarez PA-C - Last Filed: 06/29/21 03:22> Family History Family History: Family History Father Anxiety Depression Hypertension <Radha Alvarez PA-C - Last Filed: 06/29/21 03:22> Social History Social History: Social History Social History: The patient lives in [place] with her boyfriend, there 2-1/2-year-old daughter, and her 7-month-old daughter. 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 She drinks alcohol socially and in moderation. No drug use. She designates her mother is her surrogate decision maker and she wishes to be a full code. [place]
[2021-06-29 01:03] LABS: Basophils Absolute Auto 0.1 K/mm3 (0.0-0.1); Basophils Percent Auto 1.2 % (0.2-1.2); Eosinophils Absolute Auto 0.2 K/mm3 (0-0.3); Hematocrit 36.5 % (37.0-47.0); Hemoglobin 12.3 g/dL (12.0-15.0); Immature Granulocyte Absolute 0.01 K/mm3 (0.00-0.031); Immature Granulocyte Percent A 0.2 % (0-0.5); Lymphocytes Absolute Auto 2.13 K/mm3 (0.9-3.2); Lymphocytes Percent Auto 36.9 % (18.3-44.2); Mean Corpuscular HGB Conc 33.7 g/dl (32-36); Mean Corpuscular Hemoglobin 32.4 pg (26-34); Mean Corpuscular Volume 96.1 fl (80-100); Mean Platelet Volume 11.4 fl (7.4-10.4); Monocytes Absolute Auto 0.7 K/mm3 (0.1-0.6); Neutrophils Absolute Auto 2.6 K/mm3 (1.3-6.7); Neutrophils Percent Auto 45.7 % (45.5-73.1); Platelet Count Result 247 k/mm3 (150-375); White Blood Count 5.8 K/mm3 (4.5-10.0)
[2021-06-29] MEDS: KETOROLAC 15 MG/ML VIAL (*BKC) IV PUSH (02:18)
--- NOTE | 2021-06-29 02:24 | PC.NURSE ---
Pt noted to have chest tightness after toradol IV given. Bendadryl ordered via PA for allergic reaction.
[2021-06-29] MEDS: diphenhydrAMINE HCl INJ 50 MG/ML VIAL 25 MG IV PUSH (02:28)
[2021-06-29 02:48] VITALS: BP 124/76; PULSE 66; RESP 16; O2SAT 99
== END 2021-06-29 02:50 | disposition home or self-care (01) ==
PROVIDERS: Emergency Provider Emergency Medicine
DX: N93.9 Abnormal uterine and vaginal bleeding, unspecified (principal); F41.9 Anxiety disorder, unspecified; F32.A Depression, unspecified; Z87.442 Personal history of urinary calculi; Z87.891 Personal history of nicotine dependence
CPT/HCPCS: 36415; 81025; 85025; 85461; 96374; 96375; 99284; J1200; J1885

== ENCOUNTER 2021-07-03 01:17 | Day surgery (SDC) | payer OTHER, SELFPAY ==
[2021-06-29 13:12] VITALS: BMI 22.3
--- NOTE | 2021-06-29 13:18 | PC.NURSE ---
Report to the Outpatient Waiting Room, entrance under the green pavilion located off [facility], at time 0745 on date 07/03/21. OR Time: 0945. - You and your visitor will be asked a series of questions to screen for COVID 19 for your protection. - A mask is required within the hospital. One visitor will be allowed to accompany the patient into the hospital. Patients visitor will be instructed to remain with patient at all times or leave the building. We will allow the visitor to come back to the postoperative area when patient is ready. Preoperative COVID Testing Requirements: TO BRING COPY OF CARD No COVID Test needed if: (proof is required; if not received patient will have Rapid Test prior to entry) - Patient has received COVID Vaccine at least 14 days prior to procedure date or - Patient has positive COVID test result within last 90 days of surgery date. COVID Test needed if above criteria is not met Patients may have clear liquids (water, carbonated beverages, clear teas, apple juice) until 3 hours prior to surgery with a maximum of 20 ounces. - No food from midnight until time of surgery Take the following medications with a SIP of water the morning of surgery: NONE Medications to discontinue per physician: VITAMINS/SUPPLEMENTS Date to take last dose: 06/29/21 Please no make-up, nail mongolian, hairspray, perfume, deodorant, or body powder the day of surgery. No jewelry (including any body piercings) or valuables the day of surgery, leave them at home. Please take a shower or bath the night before, or the morning of, surgery with an antibacterial soap. Wear comfortable, loose fitting clothing. - Jewelry must be removed prior to entering the operating room. Rings and piercings that are not removed may be cut off. - The hospital will not accept responsibility for valuables. - Please leave all valuables, including medications, at home the day of surgery. If you are going home after surgery, a licensed jinriksha driver must drive you home. - NO public transportation without another adult. - We recommend that an adult stay with you for 24 hours following discharge. - We also recommend that you do not drive, make important decision, drink alcoholic beverages, or take any drugs that were not prescribed by your health care provider for at least 24 hours after your discharge time. Follow any additional instructions given to you from your surgeon. Telephone instructions given to DESTINEY BURKS and asked if any additional questions and then verbalized understanding. Patient advised to call surgeon office or pre surgery nurse liaison [phone] if any additional questions.
--- NOTE | 2021-07-01 07:46 | PM.IMHP ---
H&P: HPI History of Present Illness Date/Time: 07/01/21 07:46 18-year-old female with excessive heavy bleeding refractory to medical therapy. She had miscarriage few months ago her bleeding has been completely irregular since that. She has negative urine test. Risks and benefits of the procedure reviewed Chief Complaint: Excessive vaginal bleeding Review of Systems Review of Systems: All systems reviewed & are unremarkable except as noted in HPI and below PMFSH Past Medical History Medical History Anxiety Depression Kidney calculi Surgical History Surgical History History of x2 History of tonsillectomy Family History Family History Father Anxiety Depression Hypertension Social History Social History Social History: The patient lives in [place] with her boyfriend, there 2-1/2-year-old daughter, and her 7-month-old daughter. 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 She drinks alcohol socially and in moderation. No drug use. She designates her mother is her surrogate decision maker and she wishes to be a full code. Smoking status: Former smoker Tobacco type: e-cigarettes/vaping Second hand tobacco smoke exposure: Yes Smoking end date: 02/25/21 Alcohol intake: current Alcohol use details: 6/MONTH Substance use: never Substance use type: does not use Living arrangements: with family Gender identity (if verbalized by the patient): Female Spiritual care concerns: No Agree to blood products: Yes Meds Home Medications and Allergies Home Medications Medication Instructions Recorded Confirmed Type One-A-Day Women's 1 1 cap PO DAILY 05/08/19 06/29/21 History sertraline [Zoloft] 100 mg PO HS 05/08/19 06/29/21 History Allergies Allergy/AdvReac Type Severity Reaction Status Date / Time metoclopramide [From Reglan] Allergy Intermediate Agitated Verified 06/29/21 13:10 metronidazole Allergy Mild ITCHING,JOYCE Verified 06/29/21 13:10 H morphine Allergy Mild h/a and Verified 06/29/21 13:10 lightheaded promethazine AdvReac Intermediate Dizziness Verified 06/29/21 13:10 Exam Const: General: no acute distress Eyes: General: appearance normal, both eyes and all related structures Neck: Neck: supple and no JVD Thyroid: thyroid normal Resp: Effort & Inspection: normal respiratory effort Auscultation: clear to auscultation bilaterally Cardio: Rate: regular rate Rhythm: regular rhythm GI: Inspection: non-distended GI Palp: Yes Soft to palpation, No Tenderness to palpation present (GI) and No Guarding due to palpation present (GI) Auscultation: normal bowel sounds : External Female Exam: normal external appearance Speculum Exam - Vagina: normal appearance of the vagina and vaginal bleeding Speculum Exam - Cervix: Cervical os closed Bimanual exam- vagina & uterus: uterine shape normal Bimanual Exam- Adnexa, other: normal adnexae Skin: General skin exam: no rashes or lesions noted Extrem: General: normal to inspection and no edema Psych: Mental Status: mental status grossly normal Affect: normal affect Assessment and Plan Additional Plan Impression: Bleeding refractory to medical therapy Plan: Hysteroscopy/dilatation and curettage
--- NOTE | 2021-07-02 12:58 | WPDANESEPPF ---
Anes - Initial Pre Proc Eval Procedure: Operation Date: 07/03/21 09:45 Proposed Procedures p Hysteroscopy, Dilation and Curettage - Niles Estrada MD Date/Time: 07/02/21 12:58 Surgeon: Niles Etsrada MD Pre Op Diagnosis: excessive bleeding Patient Data Age: 26 Gender: F Height: 1.63 m Weight: 58.97 kg Allergies Allergy/AdvReac Type Severity Reaction Status Date / Time metoclopramide [From Reglan] Allergy Intermediate Agitated Verified 07/03/21 09:21 metronidazole Allergy Mild ITCHING,JOYCE Verified 07/03/21 09:21 H morphine Allergy Mild h/a and Verified 07/03/21 09:21 lightheaded promethazine AdvReac Intermediate Dizziness Verified 07/03/21 09:21 Home Medications Medication Instructions Recorded Confirmed Type One-A-Day Women's 1 1 cap PO DAILY 05/08/19 07/03/21 History sertraline [Zoloft] 100 mg PO HS 05/08/19 07/03/21 History hydrocodone-acetaminophen 1 tablet PO Q4H PRN #20 tablet 07/03/21 Rx Patient hx anesthesia problems: none Family hx anesthesia problems: none Results Review: All pre-operative results and documents have been reviewed as part of the pre-operative evaluation. [facility] Past Medical History Medical History (Updated 07/03/21 @ 09:22 by Niles Estrada MD) Anxiety Asthma Depression Kidney calculi Surgical History Surgical History History of x2 History of tonsillectomy Family History Family History Father Anxiety Depression Hypertension Social History Social History Social History: The patient lives in [place] with her boyfriend, there 2-1/2-year-old daughter, and her 7-month-old daughter. 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 She drinks alcohol socially and in moderation. No drug use. She designates her mother is her surrogate decision maker and she wishes to be a full code. Smoking status: Former smoker Tobacco type: e-cigarettes/vaping Second hand tobacco smoke exposure: Yes Smoking end date: 02/25/21 Alcohol intake: current Alcohol use details: 6/MONTH Substance use: never Substance use type: does not use Gender identity (if verbalized by the patient): Female Spiritual care concerns: No Agree to blood products: Yes Anes - Eval Final PreProcedure Day of Procedure 07/02/21 12:58 Patient weight: normal Heart: regular rate and rhythm Lungs: clear to auscultation and normal air movement Airway: Mallampati scale class II Neurological: alert and oriented Last oral intake: >/= 8 hours ASA classification: II Emergent: no Anesthetic plan: proceed Anesthesia type and monitoring: general GIVS and standard monitoring Results Review: All pre-operative results and documents have been reviewed as part of the pre-operative evaluation. Informed Consent: The patient's anesthetic plan and its attendant risks and benefits were discussed with the patient/family/POA. Questions were solicited and answers provided to the satisfaction of the patient/family/POA.
--- NOTE | 2021-07-03 07:21 | WPDHPUPDATE1 ---
History and Physical Update Update Date/Time: 07/03/21 07:21 History and Physical has been reviewed, including an updated exam of the patient. There are NO changes in the patient's condition. Risks, benefits, and alternatives have been discussed and questions answered. Patient agrees to proceed with procedure.
[2021-07-03 09:26] VITALS: BP 112/65; PULSE 69; RESP 16; TEMP 36.2; O2SAT 100
[2021-07-03] MEDS: ACETAMINOPHEN 500 MG TABLET 1000 MG PO (09:30)
[2021-07-03] MEDS: LACTATED RINGERS 1,000 ML 30 ML IV CONT (09:39)
[2021-07-03] MEDS: KETOROLAC 30 MG/ML VIAL (*BKC) IV PUSH (10:02)
--- NOTE | 2021-07-03 10:07 | P.OP_ITS ---
Procedure Note - Detailed Date of Procedure 07/03/21 Pre-op Diagnosis excessive bleeding Post-op Diagnosis Same Procedure Performed Hysteroscopy/polypectomy/dilatation curettage Surgeon Niles Estrada MD Anesthesia MAC and Local Indications A 26-year-old female with the bleeding refractory to medical therapy Findings Benign appearing endometrium with a small uterine polyp at the fundus Description of Procedure The patient was prepped and draped in the normal sterile fashion placed in the dorsal lithotomy position. Under excellent IV sedation weighted speculum placed in posterior fornix vagina. Anterior lip of the cervix grasped with single- tooth tenaculum. 2.5cc 1% xylocaine anesthesia placed at 2, 4, 8, 10:00 a.m. respectively of the cervix. Uterus sounded to 9cm. Serial dilatation with fragmented dilators performed followed by passage of the 5mm visualizing hysteroscope. Normal saline was used as visualizing medium. Each fallopian tube os could be seen at the upper left portion of the fundus was a polypoid appearing lesion the polyp forceps was passed and this was taken in piecemeal condition. The uterus was then scraped over the entire 360? until a good grating sound was heard. The instruments then removed and all were accounted for. All sponge, needle, instrument counts were correct. There were no immediate complications Estimated Blood Loss 5 Drains No Packing No Pathology Yes Complications No immediate complications Condition Stable
[2021-07-03 10:10] VITALS: BP 103/60; PULSE 66; RESP 12; O2SAT 94
[2021-07-03 10:40] VITALS: BP 103/63; PULSE 63; RESP 16; O2SAT 97
[2021-07-03] MEDS: oxyCODONE HCL (*CRX) 5 MG TAB IR PO (11:10)
[2021-07-03 11:20] VITALS: BP 111/67; PULSE 66; RESP 16
== END 2021-07-03 11:35 | disposition home or self-care (01) ==
PROVIDERS: PCP Nurse Practitioner Family; Visit Provider Obstetrics & Gynecology
PROC: 0U5B8ZZ Destruction of Endometrium, Via Natural or Artificial Opening Endoscopic (ICD-10-PCS; CPT 58563; principal; 2021-07-03 09:45)
DX: N92.4 Excessive bleeding in the premenopausal period (principal); N84.0 Polyp of corpus uteri; F41.9 Anxiety disorder, unspecified; F17.290 Nicotine dependence, other tobacco product, uncomplicated; J45.909 Unspecified asthma, uncomplicated
CPT/HCPCS: 58558; 87426; 88305; A9270; C9803; J1100; J1885; J2250; J2405; J2704; J3010; J7030; J7120

== ENCOUNTER 2021-07-03 08:18 | Outpatient (CLI) | payer OTHER, SELFPAY ==
[2021-07-03 08:57] LABS: EDCOVIDSCREEN Negative (Negative)
== END 2021-07-03 08:19 | disposition home or self-care (01) ==
LOC: ANHSURGERY 08:20
PROVIDERS: PCP Nurse Practitioner Family; Visit Provider Obstetrics & Gynecology
DX: Z01.818 Encounter for other preprocedural examination (principal)
CPT/HCPCS: 87426; C9803

== ENCOUNTER 2021-11-30 21:46 | Emergency (ER) | payer OTHER, SELFPAY ==
[2021-11-30 22:49] VITALS: BP 120/69; PULSE 76; RESP 18; TEMP 36.4; O2SAT 99
[2021-11-30 23:15] LABS: Basophils Percent Auto 0.6 % (0.2-1.2); Eosinophils Absolute Auto 0.2 K/mm3 (0-0.3); Eosinophils Percent Auto 2.3 % (0-4.4); Hematocrit 37.4 % (37.0-47.0); Hemoglobin 12.8 g/dL (12.0-15.0); Immature Granulocyte Absolute 0.01 K/mm3 (0.00-0.031); Immature Granulocyte Percent A 0.2 % (0-0.5); Lymphocytes Absolute Auto 2.17 K/mm3 (0.9-3.2); Lymphocytes Percent Auto 33.3 % (18.3-44.2); Mean Corpuscular HGB Conc 34.2 g/dl (32-36); Mean Corpuscular Hemoglobin 31.3 pg (26-34); Mean Corpuscular Volume 91.4 fl (80-100); Mean Platelet Volume 10.6 fl (7.4-10.4); Monocytes Absolute Auto 0.5 K/mm3 (0.1-0.6); Monocytes Percent Auto 8.1 % (2.6-8.5); Neutrophils Absolute Auto 3.6 K/mm3 (1.3-6.7); Neutrophils Percent Auto 55.5 % (45.5-73.1); Platelet Count Result 230 k/mm3 (150-375); Red Blood Count 4.09 M/mm3 (4.2-5.4); Red Cell Distribution Width 11.9 % (11.5-14.5); White Blood Count 6.5 K/mm3 (4.5-10.0)
[2021-11-30 23:20] LABS: Add Urine Microscopic? YES; Appearance Urine Turbid (Clear); Bilirubin Urine 1+ (Negative); Blood Urine 3+ (Negative); Color Urine Red (Yellow); Glucose Urine UA Negative (Negative); Ketones Urine Trace mg/dL (Negative); Leukocyte Esterase Ur Negative LEU/UL (Negative); Nitrate Urine Negative (Negative); Protein Urine 1+ mg/dL (Negative); Specific Grav Ur >= 1.030 (1.001-1.035); Urobilinogen Urine 0.2 mg/dL (<2.0); pH Urine 5.5 (5.0-9.0)
[2021-11-30 23:30] LABS: RBC Urine >75 /hpf (0-2); Squamous Epithelial Cell Urine Occasional /hpf (Few); WBC Urine 16-20 /hpf
[2021-11-30 23:39] LABS: Beta HCG Quantitative 32.42 mIU/ML
--- NOTE | 2021-12-01 03:16 | ED.GENADULT ---
HPI - General Adult General Chief complaint: Vaginal Bleeding Stated complaint: , bleeding, clots Time Seen by Provider: 12/01/21 01:37 History of Present Illness HPI narrative: This is a 26-year-old female presenting ED with vaginal bleeding x2 days. Patient has recently taken a positive test. Since then she has been having lower abdominal cramping and passage of clots. patient spoke with her OBGYN Dr. Goldstein who instructed her to come to the emergency department. Patient has been having intermittent bleeding since her last miscarriage 2 months ago and does not know when her last menstrual period was patient denies any other physical complaints at this time. Related Data Home Medications Medication Instructions Recorded Confirmed vit 123-iron 28 mg-folic 1 cap PO DAILY 05/08/19 07/03/21 acid 800 [id number] 235 mg capsule (One-A-Day Women's 1 DHA-FA) sertraline 100 mg tablet (Zoloft) 100 mg PO HS 05/08/19 07/03/21 Allergies Allergy/AdvReac Type Severity Reaction Status Date / Time metoclopramide [From Reglan] Allergy Intermediate Agitated Verified 11/30/21 23:04 metronidazole Allergy Mild ITCHING,JOYCE Verified 11/30/21 23:04 H morphine Allergy Mild h/a and Verified 11/30/21 23:04 lightheaded promethazine AdvReac Intermediate Dizziness Verified 11/30/21 23:04 Review of Systems Review of Systems: CONSTITUTIONAL: Denies night sweats. EYES: No eye pain ENT: Denies rhinorrhea CARDIOVASCULAR: Denies palpitations RESPIRATORY: Denies hemoptysis GASTROINTESTINAL: Denies hematemesis GENITOURINARY: Denies hematuria. SKIN: Denies rash MUSCULOSKELETAL: Denies myalgia. NEUROLOGIC: Denies weakness. PSYCHIATRIC: Denies delusions PMFSH Past Medical History Medical History (Updated 12/01/21 @ 03:10 by Clayton Martini MD) Anxiety Asthma Depression Kidney calculi Surgical History Surgical History History of x2 History of tonsillectomy Family History Family History Father Anxiety Depression Hypertension Social History Social History Social History: The patient lives in [place] with her boyfriend, there 2-1/2-year-old daughter, and her 7-month-old daughter. 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 She drinks alcohol socially and in moderation. No drug use. She designates her mother is her surrogate decision maker and she wishes to be a full code. Smoking status: Former smoker Tobacco type: e-cigarettes/vaping Second hand tobacco smoke exposure: Yes Smoking end date: 02/25/21 Alcohol intake: current Alcohol use details: 6/MONTH Substance use: never Substance use type: does not use Gender identity (if verbalized by the patient): Female Spiritual care concerns: No Agree to blood products: Yes Exam Narrative: APPEARANCE: No apparent distress. Head atraumatic. EYES: PERRLA/EOMI, NOSE: Normal no drainage NECK: Supple, Trachea midline RESPIRATORY: CTAB, No increased work of breathing. CARDIOVASCULAR: S1S2 appreciated ABDOMINAL: Soft, nontender, nondistended, no guarding or rebound MUSCULOSKELETAl: No obvious deformities NEURO: Alert. Moving 4/4 extremities SKIN:: Warm, dry. Normal color PSYCHIATRIC: Normal affect Course Vital Signs Vital signs: Vital Signs Temperature 97.6 F 11/30/21 22:49 Pulse Rate 76 11/30/21 22:49 Respiratory Rate 18 11/30/21 22:49 Blood Pressure 120/69 11/30/21 22:49 Pulse Oximetry 99 11/30/21 22:49 Oxygen Delivery Room Air 11/30/21 22:49 Temperature 97.6 F 11/30/21 22:49 Pulse Rate 76 11/30/21 22:49 Respiratory Rate 18 11/30/21 22:49 Blood Pressure 120/69 11/30/21 22:49 Pulse Oximetry 99 11/30/21 22:49
[2021-12-01] MEDS: ACETAMINOPHEN 500 MG TABLET 1000 MG PO (03:19)
[2021-12-01] MEDS: ONDANSETRON HCL ODT 4 MG TABLET PO (03:19)
== END 2021-12-01 03:20 | disposition home or self-care (01) ==
PROVIDERS: Emergency Provider Emergency Medicine; PCP Nurse Practitioner Family
DX: O20.9 Hemorrhage in early pregnancy, unspecified (principal); O99.511 Diseases of the respiratory system complicating pregnancy, first trimester; J45.909 Unspecified asthma, uncomplicated; O99.341 Other mental disorders complicating pregnancy, first trimester; F41.9 Anxiety disorder, unspecified; F32.A Depression, unspecified; Z87.442 Personal history of urinary calculi; Z87.891 Personal history of nicotine dependence; Z3A.01 Less than 8 weeks gestation of pregnancy
CPT/HCPCS: 36415; 81001; 84702; 85025; 85461; 87086; 99284; A9270

== ENCOUNTER 2021-12-01 08:40 | Day surgery (SDC) | payer OTHER, SELFPAY ==
[2021-12-01 08:43] VITALS: BMI 22.3
--- NOTE | 2021-12-01 08:50 | PC.NURSE ---
Report to the Outpatient Waiting Room, entrance under the green pavilion located off [facility], at time 1345 on date 12/01/21. OR Time: 1545. Time changes happen often and if your time is changed the preop area will call you the afternoon before. - You and your visitor will be asked to self-screen and do not enter if you have any COVID symptoms. - Only one visitor and NO children visitors are allowed at this time. - The patient visitor is requested to leave or wait in car when not with patient due to restrictions. - A mask is required within the hospital. Patients may have clear liquids (water, carbonated beverages, clear teas, apple juice) until 3 hours prior to surgery with a maximum of 20 ounces. - No food from midnight until time of surgery Take the following medications with a SIP of water the morning of surgery: NONE Medications to discontinue per physician: NO MEDS TODAY Date to take last dose: N/A Please no make-up, nail estonian, hairspray, perfume, deodorant, or body powder the day of surgery. No jewelry (including any body piercings) or valuables the day of surgery, leave them at home. Please take a shower or bath the night before, or the morning of, surgery with an antibacterial soap. Wear comfortable, loose fitting clothing. - Jewelry must be removed prior to entering the operating room. Rings and piercings that are not removed may be cut off. - The hospital will not accept responsibility for valuables. - Please leave all valuables, including medications, at home the day of surgery. If you are going home after surgery, a licensed courier driver must drive you home. - NO public transportation without another adult. - We recommend that an adult stay with you for 24 hours following discharge. - We also recommend that you do not drive, make important decision, drink alcoholic beverages, or take any drugs that were not prescribed by your health care provider for at least 24 hours after your discharge time. Follow any additional instructions given to you from your surgeon. If you or anyone in your household have experienced Covid symptoms in the past week, please notify your surgeon or the nurse liaison at the phone number below for possible testing. Telephone instructions given to PT - DESTINEY BURKS and asked if any additional questions and then verbalized understanding. Patient advised to call surgeon office or pre surgery nurse liaison [phone] if any additional questions.
--- NOTE | 2021-12-01 10:44 | PM.IMHP ---
H&P: HPI History of Present Illness Date/Time: 12/01/21 10:44 Chief Complaint: 1st trimester missed A/B Narrative: This is a 26-year-old multiparous patient admitted for suction D& C. She had a quantitative HCG of only 32 over she continues to bleed and been passing clots regularly. Her hemoglobin was stable however as she is passing clots by the hours she is admitted for suction D& C. Risks and benefits have been reviewed PMFSH Past Medical History Medical History Anxiety Asthma Depression Kidney calculi Surgical History Surgical History History of x2 History of tonsillectomy Family History Family History Father Anxiety Depression Hypertension Social History Social History Social History: The patient lives in [place] with her boyfriend, there 2-1/2-year-old daughter, and her 7-month-old daughter. 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 She drinks alcohol socially and in moderation. No drug use. She designates her mother is her surrogate decision maker and she wishes to be a full code. Smoking status: Former smoker Tobacco type: e-cigarettes/vaping Second hand tobacco smoke exposure: Yes Smoking end date: 09/11/21 Alcohol intake: never Alcohol use details: 6/MONTH Substance use: never Substance use type: does not use Living arrangements: with family Gender identity (if verbalized by the patient): Female Spiritual care concerns: No Agree to blood products: Yes Meds Home Medications and Allergies Home Medications Medication Instructions Recorded Confirmed Type vit 123-iron 28 mg-folic 1 cap PO DAILY 05/08/19 12/01/21 History acid 800 [id number] 235 mg capsule (One-A-Day Women's 1 DHA-FA) sertraline 100 mg tablet (Zoloft) 100 mg PO HS 05/08/19 12/01/21 History progesterone micronized 200 mg 200 mg PO HS 12/01/21 12/01/21 History capsule Allergies Allergy/AdvReac Type Severity Reaction Status Date / Time metoclopramide [From Reglan] Allergy Intermediate Agitated Verified 12/01/21 08:42 metronidazole Allergy Mild ITCHING,JOYCE Verified 12/01/21 08:42 H morphine Allergy Mild h/a and Verified 12/01/21 08:42 lightheaded promethazine AdvReac Intermediate Dizziness Verified 12/01/21 08:42 Exam Const: General: cooperative, healthy appearing and comfortable Nutritional Appearance: average body habitus Orientation/consciousness: oriented to person, oriented to place and oriented to time Chest: Chest palpation & inspection: normal inspection of the chest Resp: Effort & Inspection: normal respiratory effort Cardio: Rate: regular rate Rhythm: regular rhythm Heart sounds: S1 normal heart sound present and S2 normal heart sound present GI: Inspection: normal to inspection : External Female Exam: normal external appearance Speculum Exam - Vagina: normal appearance of the vagina and vaginal bleeding Speculum Exam - Cervix: Cervical os open Bimanual exam- vagina & uterus: enlarged Assessment and Plan Assessment and plan (1) Vaginal bleeding: Code(s): N93.9 - Abnormal uterine and vaginal bleeding, unspecified Status: Acute Plan Suction dilatation and curettage
--- NOTE | 2021-12-01 10:48 | WPDHPUPDATE1 ---
History and Physical Update Update Date/Time: 12/01/21 10:48 History and Physical has been reviewed, including an updated exam of the patient. There are NO changes in the patient's condition. Risks, benefits, and alternatives have been discussed and questions answered. Patient agrees to proceed with procedure.
--- NOTE | 2021-12-01 11:53 | WPDANESEPPF ---
Anes - Initial Pre Proc Eval Procedure: Operation Date: 12/01/21 12:45 Proposed Procedures p Suction Dilation and Curettage - Niles Estrada MD Date/Time: 12/01/21 11:53 Surgeon: Niles Estrada MD Pre Op Diagnosis: Incomplete AB Patient Data Age: 26 Gender: F Height: 1.63 m Weight: 58.97 kg Allergies Allergy/AdvReac Type Severity Reaction Status Date / Time metoclopramide [From Reglan] Allergy Intermediate Agitated Verified 12/01/21 08:42 metronidazole Allergy Mild ITCHING,JOYCE Verified 12/01/21 08:42 H morphine Allergy Mild h/a and Verified 12/01/21 08:42 lightheaded promethazine AdvReac Intermediate Dizziness Verified 12/01/21 08:42 Home Medications Medication Instructions Recorded Confirmed Type vit 123-iron 28 mg-folic 1 cap PO DAILY 05/08/19 12/01/21 History acid 800 [id number] 235 mg capsule (One-A-Day Women's 1 DHA-FA) sertraline 100 mg tablet (Zoloft) 100 mg PO HS 05/08/19 12/01/21 History hydrocodone 5 mg-acetaminophen 325 1 tablet PO Q4H PRN pain #20 tabs 12/01/21 Rx mg tablet progesterone micronized 200 mg 200 mg PO HS 12/01/21 12/01/21 History capsule Patient hx anesthesia problems: none Family hx anesthesia problems: none Results Review: All pre-operative results and documents have been reviewed as part of the pre-operative evaluation. [facility] Past Medical History Medical History Anxiety Asthma Depression Kidney calculi Surgical History Surgical History History of x2 History of tonsillectomy Family History Family History Father Anxiety Depression Hypertension Social History Social History Social History: The patient lives in [place] with her boyfriend, there 2-1/2-year-old daughter, and her 7-month-old daughter. 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 She drinks alcohol socially and in moderation. No drug use. She designates her mother is her surrogate decision maker and she wishes to be a full code. Smoking status: Former smoker Tobacco type: e-cigarettes/vaping Second hand tobacco smoke exposure: Yes Smoking end date: 09/11/21 Alcohol intake: never Alcohol use details: 6/MONTH Substance use: never Substance use type: does not use Living arrangements: with family Gender identity (if verbalized by the patient): Female Spiritual care concerns: No Agree to blood products: Yes Anes - Eval Final PreProcedure Day of Procedure 12/01/21 11:53 Patient weight: normal Heart: regular rate and rhythm Lungs: clear to auscultation Airway: Mallampati scale class II Neurological: alert and oriented Last oral intake: >/= 8 hours ASA classification: II Emergent: no Anesthetic plan: proceed Anesthesia type and monitoring: general GIVS and standard monitoring Results Review: All pre-operative results and documents have been reviewed as part of the pre-operative evaluation. Informed Consent: The patient's anesthetic plan and its attendant risks and benefits were discussed with the patient/family/POA. Questions were solicited and answers provided to the satisfaction of the patient/family/POA.
[2021-12-01] MEDS: LACTATED RINGERS 1,000 ML 30 ML IV CONT (12:15)
[2021-12-01] MEDS: ACETAMINOPHEN 500 MG TABLET 1000 MG PO (12:25)
[2021-12-01 12:50] VITALS: BP 114/69; PULSE 74; RESP 14; TEMP 36.5; O2SAT 98
[2021-12-01] MEDS: ONDANSETRON INJ 4 MG/2 ML VIAL IV PUSH (13:18)
[2021-12-01] MEDS: LIDOCAINE HCL 1% PF 30 ML VIAL 10 ML INFILTRATE (13:29)
[2021-12-01] MEDS: KETOROLAC 30 MG/ML VIAL (*BKC) IV PUSH (13:30)
--- NOTE | 2021-12-01 13:31 | W.PM.PROC2 ---
Procedure Note - Detailed Date of Procedure 12/01/21 Pre-op Diagnosis Incomplete AB Post-op Diagnosis Same Procedure Performed Suction dilatation curettage Surgeon Niles Estrada MD Anesthesia MAC and Local Indications This is a female with tuberous patient with 1st trimester incomplete EAB Findings Uterus sounded to 9cm. Still very small amount of tissue the look like products of conception Description of Procedure Patient was prepped draped in the normal sterile fashion placed in the dorsal lithotomy position. Under excellent IV sedation weighted speculum placed in posterior fornix vagina. Anterior lip of the cervix grasped with a single-tooth tenaculum in the uterus sounded to 8cm 2.5cc 1% xylocaine anesthesia placed at 2:48 a.m. 10:00 a.m. Parres in the cervix again uterus sounded 9cm. Serial dilatation with fragmented dilators performed followed by passage of 9. Suction curette. A small amount of tissue was removed. When a good grating sound was heard. No further instruments were necessary. The instruments with withdrawn and the patient went to recovery in satisfactory condition. All sponge, needle, instrument counts were correct. There were no immediate complications Estimated Blood Loss 25 Drains No Packing No Pathology Yes Complications No immediate complications Condition Stable Disposition PACU
[2021-12-01 13:37] VITALS: BP 103/64; PULSE 59; RESP 12; O2SAT 99
[2021-12-01] MEDS: fentaNYL CITRATE INJ (*CRX) 100 MCG/2 ML VIAL 25 MCG IV PUSH ×3 (14:01→14:22)
[2021-12-01 14:05] VITALS: BP 108/72; PULSE 61; RESP 12; O2SAT 96
[2021-12-01 14:35] VITALS: BP 108/70; PULSE 60; RESP 12
[2021-12-01] MEDS: oxyCODONE HCL (*CRX) 5 MG TAB IR PO (14:53)
[2021-12-01 15:00] VITALS: BP 114/60; PULSE 62; RESP 12
== END 2021-12-01 15:15 | disposition home or self-care (01) ==
PROVIDERS: PCP Nurse Practitioner Family; Visit Provider Obstetrics & Gynecology
PROC: (CPT 59812; principal; 2021-12-01 12:45)
DX: O03.4 Incomplete spontaneous abortion without complication (principal); Z87.891 Personal history of nicotine dependence; F32.A Depression, unspecified; F41.9 Anxiety disorder, unspecified
CPT/HCPCS: 59812; 88305; A9270; J1885; J2250; J2405; J2704; J3010; J7120

== ENCOUNTER 2022-01-20 09:06 | Emergency (ER) | payer OTHER, SELFPAY ==
--- NOTE | ~2022-01-20 | XR_ITS ---
EXAMINATION: XR chest 2V DATE: 01/20/2022 09:29 INDICATION: Chest tightness. TECHNIQUE: Frontal and lateral views of the chest were obtained. COMPARISON: Chest 2 views 04/17/2012 FINDINGS: There is mild scarring at the lung apices. No pleural effusion or pneumothorax. The heart s ize is normal. IMPRESSION: 1. Stable mild scarring at the lung apices. Reviewed, dictated and finalized at location A. 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
--- NOTE | 2022-01-20 09:10 | ED.URI ---
HPI - URI/Sore Throat General Chief Complaint: Upper Respiratory Infection Stated Complaint: tight chest low fever Time Seen by Provider: 01/20/22 09:10 Source: patient and RN notes reviewed History of Present Illness HPI Narrative: patient is a 26-year-old female who presents to the Urgent Care with complaints of low-grade fever of 99 F and tight chest for the last 3 days. Patient states she just stopped vaping 3 days ago and has felt slightly better. Patient states she has a history of asthma and has been using her albuterol inhaler which does seem to help. Patient denies any upper respiratory complaints, cough, wheezing. States that her son currently has pneumonia. Patient has been using Benadryl and Tylenol. No other acute complaints. No acute distress noted. Patient aware of the plan of care. Some parts of this dictation were generated by voice recognition software and may contain typographical and/or grammatical inaccuracies. Related Data Home Medications Medication Instructions Recorded Confirmed sertraline 100 mg tablet (Zoloft) 100 mg PO HS 05/08/19 12/01/21 albuterol sulfate 90 mcg/actuation 2 puff inhalation QID PRN 01/20/22 01/20/22 aerosol inhaler Shortness Of Breath Allergies Allergy/AdvReac Type Severity Reaction Status Date / Time metoclopramide [From Reglan] Allergy Intermediate Agitated Verified 01/20/22 09:21 metronidazole Allergy Mild ITCHING,JOYCE Verified 01/20/22 09:21 H morphine Allergy Mild h/a and Verified 01/20/22 09:21 lightheaded promethazine AdvReac Intermediate Dizziness Verified 01/20/22 09:21 Review of Systems Review of Systems: CONSTITUTIONAL: reports of low-grade fevers EYES: Denies visual changes, redness, or discharge. ENT: Denies rhinorrhea, congestion, sore throat, or otalgia. CARDIOVASCULAR: Denies chest pain, palpitations, or edema. RESPIRATORY: Reports of chest tightness without cough or wheezing GASTROINTESTINAL: Denies abdominal pain, nausea, vomiting, or diarrhea. GENITOURINARY: Denies dysuria or hematuria. SKIN: Denies rash or itching. MUSCULOSKELETAL: Denies back pain, joint pain, or myalgia. NEUROLOGIC: Denies headache, numbness, or weakness. All other systems reviewed are negative, except as documented in HPI. PMFSH Past Medical History Medical History Anxiety Asthma Depression Kidney calculi Surgical History Surgical History History of x2 History of tonsillectomy Family History Family History Father Anxiety Depression Hypertension Social History Social History Social History: The patient lives in [place] with her boyfriend, there 2-1/2-year-old daughter, and her 7-month-old daughter. 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 She drinks alcohol socially and in moderation. No drug use. She designates her mother is her surrogate decision maker and she wishes to be a full code. Smoking status: Former smoker Tobacco type: e-cigarettes/vaping Second hand tobacco smoke exposure: Yes Smoking end date: 09/11/21 Alcohol intake: never Alcohol use details: 6/MONTH Substance use: never Substance use type: does not use Gender identity (if verbalized by the patient): Female Spiritual care concerns: No Agree to blood products: Yes Comments At the time of my signature, I reviewed and agree with the nursing past medical, surgical, social, and family history. There is no relevant family history pertinent to the patient complaint. Exam Narrative: GENERAL: This is a well-nourished, well-developed patient, in no apparent distress. HEAD: normocephalic, atraumatic. EYES: PERRL. Sclera clear/white. Vision is grossly intact. EARS: Ex
[2022-01-20 09:13] VITALS: BP 102/60; PULSE 71; RESP 18; TEMP 36.8; O2SAT 99
== END 2022-01-20 09:40 | disposition home or self-care (01) ==
PROVIDERS: Emergency Provider Nurse Practitioner Family; PCP Nurse Practitioner Family
DX: J45.909 Unspecified asthma, uncomplicated (principal); Z87.891 Personal history of nicotine dependence; F41.9 Anxiety disorder, unspecified; F32.A Depression, unspecified
CPT/HCPCS: 71046; 99213; G0463

== ENCOUNTER 2022-02-24 09:59 | Emergency (ER) | payer OTHER, SELFPAY ==
[2022-02-24 10:07] VITALS: BP 107/63; PULSE 77; RESP 16; TEMP 36.9; O2SAT 99
--- NOTE | 2022-02-24 11:05 | ED.EAR ---
HPI - Ear Problem General Chief complaint: Ear Stated complaint: Ear Pain/Sore Throat Time Seen by Provider: 02/24/22 11:05 Source: patient Mode of arrival: ambulatory Limitations: no limitations History of Present Illness HPI Narrative: 26-year-old female presents by left ear pain worsening over last 2 days. She states she started with the pain approximately 1 week ago, she took a few doses of amoxicillin she had left over which helped the pain temporarily. She endorses sore throat and sinus congestion started yesterday. She has not taken anything for symptoms. She denies sick contacts. Denies tinnitus, dizziness, nausea, vomiting diarrhea, fever or chills. MD Complaint: ear pain Related Data Home Medications Medication Instructions Recorded Confirmed sertraline 100 mg tablet (Zoloft) 100 mg PO HS 05/08/19 02/24/22 albuterol sulfate 90 mcg/actuation 2 puff inhalation QID PRN 01/20/22 02/24/22 aerosol inhaler Shortness Of Breath Allergies Allergy/AdvReac Type Severity Reaction Status Date / Time metoclopramide [From Reglan] Allergy Intermediate Agitated Verified 02/24/22 10:28 metronidazole Allergy Mild ITCHING,JOYCE Verified 02/24/22 10:28 H morphine Allergy Mild h/a and Verified 02/24/22 10:28 lightheaded promethazine AdvReac Intermediate Dizziness Verified 02/24/22 10:28 Review of Systems Review of Systems: ROS per HPI All systems reviewed & are unremarkable except as noted in HPI and below PMFSH Past Medical History Medical History Anxiety Asthma Depression Kidney calculi Surgical History Surgical History History of x2 History of tonsillectomy Family History Family History Father Anxiety Depression Hypertension Social History Social History Social History: The patient lives in [place] with her boyfriend, there 2-1/2-year-old daughter, and her 7-month-old daughter. 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 She drinks alcohol socially and in moderation. No drug use. She designates her mother is her surrogate decision maker and she wishes to be a full code. Smoking status: Former smoker Tobacco type: e-cigarettes/vaping Second hand tobacco smoke exposure: Yes Smoking end date: 09/11/21 Alcohol intake: never Alcohol use details: 6/MONTH Substance use: never Substance use type: does not use Gender identity (if verbalized by the patient): Female Spiritual care concerns: No Agree to blood products: Yes Comments At time of signature, agree with nursing past medical, surgical, social and family history. There is no relevant family history pertinent to the presenting complaint Exam Narrative: GENERAL: ill-appearing, well-nourished, and in no acute distress. HEAD: Normocephalic EYES: PERRLA, conjunctivae clear ENT: Nares clear. Mucous membranes moist. right TM pearly higuera with dull light reflex; left TM erythematous, bulging, purulent effusion no tragal tenderness. Oropharynx erythematous without lesions. Tonsils not enlarged and without exudate CHEST: Clear to auscultation, breath sounds equal. No wheezing, rhonchi, rales, or stridor. No respiratory distress, speaks in full sentences. HEART: Regular rate and rhythm. No murmur heard. SKIN: Warm, dry, no rash. NEURO: Alert and oriented x3. PSYCH: Normal mood and affect Course Course Emergency Course: Patient is aware of diagnosis, understands and agrees to treatment plan. Anticipatory guidance given. Patient agrees to follow-up as directed and is aware of reasons to seek care at the emergency department. Portions of this record may have been created with voice recognition software Level of Care: [facility] Care Visit Dary
== END 2022-02-24 11:18 | disposition home or self-care (01) ==
PROVIDERS: Emergency Provider Nurse Practitioner Family; PCP Nurse Practitioner Family
DX: H66.002 Acute suppurative otitis media without spontaneous rupture of ear drum, left ear (principal); Z87.891 Personal history of nicotine dependence; J45.909 Unspecified asthma, uncomplicated; F41.9 Anxiety disorder, unspecified; F32.A Depression, unspecified
CPT/HCPCS: 99213; G0463

== ENCOUNTER 2022-04-20 16:07 | Emergency (ER) | payer BC, MEDICAID, SELFPAY ==
[2022-04-20 16:15] VITALS: BP 118/67; PULSE 76; RESP 16; TEMP 36.8; O2SAT 99
--- NOTE | 2022-04-20 17:31 | ED.EAR ---
HPI - Ear Problem General Chief complaint: Ear Stated complaint: Ear Pain Time Seen by Provider: 04/20/22 17:22 Source: patient, RN notes reviewed and old records reviewed Mode of arrival: ambulatory History of Present Illness HPI Narrative: 27 year old female who presents to [facility] care with complaints of 2 day history of runny nose with some congestion and ear pain with dizziness starting today. Patient reports that she has been taking Zyrtec for her nasal congestion but has not taken any decongestant. Patient denies any fevers, chills or sweats or any body aches. Patient has no drainage from her left ear but is painful and reports that she feels off balance. MD Complaint: ear pain and other (dizziness and nasal congestion and drainge) Location: left ear Duration: constant Severity: moderate Discharge from ear: Reports no Treatment prior to arrival: other (zyrtec) Related Data Home Medications Medication Instructions Recorded Confirmed sertraline 100 mg tablet (Zoloft) 100 mg PO HS 05/08/19 02/24/22 Allergies Allergy/AdvReac Type Severity Reaction Status Date / Time metoclopramide [From Reglan] Allergy Intermediate Agitated Verified 03/19/22 15:15 metronidazole Allergy Mild ITCHING,JOYCE Verified 03/19/22 15:15 H morphine Allergy Mild h/a and Verified 03/19/22 15:15 lightheaded promethazine AdvReac Intermediate Dizziness Verified 03/19/22 15:15 Review of Systems Review of Systems: CONSTITUTIONAL: Denies fever, chills, or sweats. EYES: Denies visual changes, redness, or discharge. ENT: Reports rhinorrhea, congestion, no sore throat, left otalgia. CARDIOVASCULAR: Denies chest pain, palpitations, or edema. RESPIRATORY: Denies cough or dyspnea. GASTROINTESTINAL: Denies abdominal pain, nausea, vomiting, or diarrhea. GENITOURINARY: Denies dysuria or hematuria. SKIN: Denies rash or itching. MUSCULOSKELETAL: Denies back pain, joint pain, or myalgia. NEUROLOGIC: Denies headache, numbness, or weakness reports some feelings of dizziness today. PSYCHIATRIC: Positive for anxiety or depression. All systems reviewed & are unremarkable except as noted in HPI and below PMFSH Past Medical History Medical History (Updated 04/21/22 @ 00:01 by Toni Dacalos) Anxiety Asthma Depression Kidney calculi Surgical History Surgical History History of x2 History of mandibular surgery for TMJ History of tonsillectomy Family History Family History Father Anxiety Depression Hypertension Social History Social History Social History: The patient lives in [place] with her boyfriend, there 2-1/2-year-old daughter, and her 7-month-old daughter. 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 She drinks alcohol socially and in moderation. No drug use. She designates her mother is her surrogate decision maker and she wishes to be a full code. Smoking status: Former smoker Tobacco type: e-cigarettes/vaping Second hand tobacco smoke exposure: Yes Smoking end date: 09/11/21 Alcohol intake: never Alcohol use details: 6/MONTH Substance use: never Substance use type: does not use Living arrangements: with family Gender identity (if verbalized by the patient): Female Spiritual care concerns: No Agree to blood products: Yes Comments At time of signature, agree with nursing past medical, surgical, social and family history. There is no relevant family history pertinent to the presenting complaint Exam Narrative: GENERAL: Well-appearing, well-nourished, and in no acute distress. HEAD: Normocephalic, atraumatic. EYES: PERRLA and EOMI. ENT: Nares clear, clear rhinorrhea or epistaxis. Mucous membranes moist.Left TM red bulging, Right TM normal with dull light reflex, throat pink wit
== END 2022-04-20 17:40 | disposition home or self-care (01) ==
PROVIDERS: Emergency Provider Registered Nurse; PCP Nurse Practitioner Family
DX: H66.92 Otitis media, unspecified, left ear (principal); Z87.891 Personal history of nicotine dependence; J45.909 Unspecified asthma, uncomplicated; F41.9 Anxiety disorder, unspecified; F32.A Depression, unspecified
CPT/HCPCS: 81025; 99213; G0463

== ENCOUNTER 2024-05-05 17:37 | Emergency (ER) | payer BC, SELFPAY ==
--- NOTE | ~2024-05-05 | CT_ITS ---
EXAMINATION: CT brain wo con DATE: 05/05/2024 21:04 INDICATION: Dizziness. Vertigo. Blurry vision. TECHNIQUE: Computed tomography (CT) of the head was performed without intravenous contrast. The mA wa s adjusted according to patient size. Iterative reconstruction technique was employed. The dose-lengt h product was 681.00 mGy-cm. COMPARISON: Head CT 03/24/2011 FINDINGS: There is no intracranial hemorrhage, acute infarction, or abnormal intracranial mass lesion . The ventricles are normal in size. The paranasal sinuses are clear. The mastoid air cells are fabio l. The orbits are normal. IMPRESSION: 1. Normal brain. Reviewed, dictated and finalized at location A. L TESTER IMPRESSION: 1. Normal brain.
--- OUTSIDE RECORDS SUMMARY | 2024-05-05 17:38 | XMS_ITS | Data Portability ---
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 Plan of Treatment Reminders Order Date Submit Date Provider Last Modified By Organization Details Last Modified Time Details Appointments None recorded . Lab lipid panel, serum 2023 024 [facility], [address] [place] [address], [address], 4 10:36:58 vitamin B12 + folate, serum or blood 2023 024 [facility], [address] [place] [address], [address], 4 10:37:01 vitamin D, 25-hydro xy, total, serum 2023 024 [facility], [address] [place] [address], [address], 4 10:37:02 CBC w/ auto diff 2023 024 [facility], [address] [place] [address], [address], 4 10:37:01 CMP, serum or plasma 2023 024 [facility], [address] [place] [address], [address], 4 10:36:59 TSH, ultra-se nsitive, serum 2023 024 [facility], [address] [facility] [address], [place], [address], 4 10:37:00 rapid flu (A+B) 2022 023 In-Office Order, Internal Use Only DO Not Attach Compendium DO Not Attach Compendium, Do Not Delete/merge, [id number] 3 15:32:07 rapid SARS CoV 2 Ag, QL IA, respirat ory specimen 2022 023 In-Office Order, Internal Use Only DO Not Attach Compendium DO Not Attach Compendium, Do Not Delete/merge, [id number] 3 15:32:08 Referral sleep medicine referral 2022 023 [email or web address] Marisol Noe, [address] [facility] , [facility] [address], [place], [address], 3 10:27:13 Procedures None recorded . Surgeries None recorded . Imaging CT, head, w/o contrast 2022 023 [email or web address] [place] [facility] (Radiology), [address] [facility] [place], [address], 3 16:16:55 XR, shoulder , 2 or more view 2022 023 [facility] [address] [facility] [place], [address], 3 12:20:48 Medication Orders trazodon e 50 mg tablet 2023 024 [facility], [address] [place], [address], 4 16:21:56 sertrali ne 100 mg tablet 2023 024 [facility], [address] [place], [address], 4 16:20:33 Zithroma x Z-Oz 250 mg tablet 2022 023 [email or web address] [facility], [address] [place], [address], 3 12:23:16 fluticas one propiona te 50 mcg/actu ation nasal spray,allison spension 2022 023 [facility] [address], [address] [place], [address], 3 15:37:32 sertrali ne 100 mg tablet 2022 023 [facility] [address], [address] [place], [address], 3 15:37:15 sertrali ne 100 mg tablet 2022 023 [facility] [address], [address] [place], [address], 3 15:00:49 Patient TargetsNo targets recorded. Patient Instructions Encounter Date Encounter Id Patient Instructions Last Modified By Organization Details Last Modified Time 08/06/2022 [id number] A healthy lifestyle: care instructions Not available 08/06/2022 15:00:42 Continue to take medications as prescribed, do not abruptly stop them. Try walking or deep breathing exercises when feeling anxious. Stress management recommended-positi ve imagery. Increase activity to 30 min a day most days. Call or return if problem persists or worsens. Not available 08/06/2022 14:57:26 follow up in 3 months Not available 08/06/2022 14:57:48 12/01/2022 [id number] A healthy lifestyle: care instructions Not available 12/01/2022 15:32:08 upper respirator y infection (cold): care instructions Not available 12/01/2022 15:32:07 Mucinex and othe r OTC cold/cough remedies are fine to take, increase fluids and have good handwashing. Get plenty of rest. [facility] Not available 12/01/2022 15:32:29 f/u 6 months [facility] barriers to care: none [facility] Not available 12/01/2022 15:32:48 01/04/2023 [id number] concussion: care instructions [facility] Not available 01/04/2023 12:41:53 A concussion is a mild brain injury that can cause confusion, memory loss, and headache. Sometimes people pass out (lose consciousness) when they have a concussion, but not always. A concussion can happen after a person has an injury to the head from being hit or falling. To help your brain heal after a concussion, you can: Rest your body Make sure to get plenty of sleep. Avoid heavy exercise or too much physical activity if it makes you feel worse. Rest your brain Avoid doing activities that need concentration or a lot of attention if they make you feel worse. Not drink alcohol while you are still having symptoms of concussion Take a pain-relieving medicine, if you have a headache You can choose one with acetaminophen or ibuprofen. Call the doctor or nurse if any of the following happen after a concussion: You vomit more than 3 times You have a severe headache, or a headache that gets worse You have a seizure You have trouble walking or talking Your vision changes You feel weak or numb in part of your body You lose control over your bladder or bowel [facility] Not available 01/04/2023 14:12:59 follow up as needed [facility] Not available 01/04/2023 14:13:23 01/17/2023 [id number] postconcussion syndrome: care instructions Not available 01/17/2023 09:53:41 A concussion is a mild brain injury that can cause confusion, memory loss, and headache. Sometimes people pass out (lose consciousness) when they have a concussion, but not always. A concussion can happen after a person has an injury to the head from being hit or falling. To help your brain heal after a concussion, you can: Rest your body Make sure to get plenty of sleep. Avoid heavy exercise or too much physical activity if it makes you feel worse. Rest your brain Avoid doing activities that need concentration or a lot of attention if they make you feel worse. Not drink alcohol while you are still having symptoms of concussion Take a pain-relieving medicine, if you have a headache You can choose one with acetaminophen or ibuprofen. Call the doctor or nurse if any of the following happen after a concussion: You vomit more than 3 times You have a severe headache, or a headache that gets worse You have a seizure You have trouble walking or talking Your vision changes You feel weak or numb in part of your body You lose control over your bladder or bowel Not available 01/17/2023 09:46:22 Plan pending imaging results. f/u as needed DWP barriers to care: none Not available 01/17/2023 09:47:20 10/04/2023 [id number] insomnia: care instructions [facility] Not available 10/04/2023 16:20:28 Continue to take medications as prescribed, do not abruptly stop them. Try walking or deep breathing exercises when feeling anxious. Stress management recommended-positi ve imagery. Increase activity to 30 min a day most days. Call or return if problem persists or worsens. Not available 10/05/2023 15:47:28 follow up in 6 months or sooner if needed Not available 10/05/2023 15:47:36 Reason for Referral Sleep Medicine Referral for Always sleepy Referring Physician: Chantell Reid, Family Medicine, Encounter Date: 08/06/2022 Results Created Date Observation Date Name Description Value Unit Range Abnormal Flag Note LastModifiedBy Organization Detail LastModifiedTime 12/02/1912/01/2022 rapid SARS CoV 2 Ag, QL IA, respi rator y speci men rapid SARS CoV 2 Ag, QL IA, respiratory specimen negati ve Not Available In-Office Order Internal Use Only DO Not Attach Compendium DO Not Attach Compendium, Do Not Delete/merge, [id number] 12/01/2022 15:31:50 12/02/1912/01/2022 rapid flu (A+B) Flu A negati ve Not Available In-Office Order Internal Use Only DO Not Attach Compendium DO Not Attach Compendium, Do Not Delete/merge, [id number] 12/01/2022 15:31:48 12/02/19 23 12/01/2022 rapid flu (A+B) Flu B negati ve Not Available In-Office Order Internal Use Only DO Not Attach Compendium DO Not Attach Compendium, Do Not Delete/merge, [id number] 12/01/2022 15:31:48 10/04/19 24 10/05/2023 LIPID PANEL cholesterol, total 191 mg/dL 100-19 9 Not Available [facility] ([facility]) [address] [place], [address], 10/05/2023 10:36:58 10/04/1910/05/2023 LIPID PANEL triglyceride s 90 mg/dL 0-149 Not Available [facility] ([facility]) [address] [place], [address], 10/05/2023 10:36:58 10/04/19 24 10/05/2023 LIPID PANEL HDL cholesterol 60 mg/dL >39 Not Available [facility]) [address] [place], [address], 10/05/2023 10:36:58 10/04/19 24 10/05/2023 LIPID PANEL VLDL cholesterol gustavo 16 mg/dL 5-40 Not Available [facility] ([facility]) [address] [place], [address], 10/05/2023 10:36:58 10/04/19 24 10/05/2023 LIPID PANEL LDL chol calc ([facility]) 115 mg/dL 0-99 above high normal Not Available [facility] ([facility]) [address] [place], [address], 10/05/2023 10:36:58 10/04/19 24 10/05/2023 COMP. METAB OLIC PANEL (14) glucose 87 mg/dL 70-99 Not Available [facility] ([facility]) [address] [place], [address], 10/05/2023 10:36:59 10/04/19 24 10/05/2023 COMP. METAB OLIC PANEL (14) BUN 12 mg/dL 6-20 Not Available [facility] ([facility]) [address] [facility], [place], [address], 10/05/2023 10:36:59 10/04/19 24 10/05/2023 COMP. METAB OLIC PANEL (14) creatinine 0.75 mg/dL 0.57-1 .00 Not Available [facility] ([facility]) [address] [facility], [place], [address], 10/05/2023 10:36:59 10/04/19 24 10/05/2023 COMP. METAB OLIC PANEL (14) eGFR 110 mL/mi n/1.7 3 >59 Not Available [facility] ([facility]) [address] [facility], [place], [address], 10/05/2023 10:36:59 10/04/19 24 10/05/2023 COMP. METAB OLIC PANEL (14) BUN/creatini ne ratio 16 9-23 Not Available [facility] ([facility]) [address] [facility], [place], [address], 10/05/2023 10:36:59 10/04/19 24 10/05/2023 COMP. METAB OLIC PANEL (14) sodium 138 mmol/ L 134-14 4 Not Available [facility] ([facility]) [address] [facility], [place], [address], 10/05/2023 10:36:59 10/04/19 24 10/05/2023 COMP. METAB OLIC PANEL (14) potassium 4.3 mmol/ L 3.5-5. 2 Not Available [facility] ([facility]) [address] [facility], [place], [address], 10/05/2023 10:36:59 10/04/19 24 10/05/2023 COMP. METAB OLIC PANEL (14) chloride 100 mmol/ L 96-106 Not Available [facility] ([facility]) [address] [place], [address], 10/05/2023 10:36:59 10/04/19 24 10/05/2023 COMP. METAB OLIC PANEL (14) carbon dioxide, total 26 mmol/ L 20-29 Not Available [facility] ([facility]) [address] [place], [address], 10/05/2023 10:36:59 10/04/19 24 10/05/2023 COMP. METAB OLIC PANEL (14) calcium 9.7 mg/dL 8.7-10 .2 Not Available [facility] ([facility]) [address] [facility], [place], [address], 10/05/2023 10:36:59 10/04/19 24 10/05/2023 COMP. METAB OLIC PANEL (14) protein, total 7.2 g/dL 6.0-8. 5 Not Available [facility] ([facility]) [address] [place], [address], 10/05/2023 10:36:59 10/04/19 24 10/05/2023 COMP. METAB OLIC PANEL (14) albumin 4.7 g/dL 4.0-5. 0 Not Available [facility] ([facility]) [address] [place], [address], 10/05/2023 10:36:59 10/04/19 24 10/05/2023 COMP. METAB OLIC PANEL (14) globulin, total 2.5 g/dL 1.5-4. 5 Not Available [facility] ([facility]) [address] [place], [address], 10/05/2023 10:36:59 10/04/19 24 10/05/2023 COMP. METAB OLIC PANEL (14) bilirubin, total 0.3 mg/dL 0.0-1. 2 Not Available [facility] ([facility]) [address] [place], [address], 10/05/2023 10:36:59 10/04/19 24 10/05/2023 COMP. METAB OLIC PANEL (14) alkaline phosphatase 65 IU/L 44-121 Not Available [facility]) [address] [place], [address], 10/05/2023 10:36:59 10/04/19 24 10/05/2023 COMP. METAB OLIC PANEL (14) AST (SGOT) 19 IU/L 0-40 Not Available [facility] ([facility]) [address] [place], [address], 10/05/2023 10:36:59 10/04/19 24 10/05/2023 COMP. METAB OLIC PANEL (14) ALT (SGPT) 13 IU/L 0-32 Not Available [facility] ([facility]) [address] [place], [address], 10/05/2023 10:36:59 10/04/19 24 10/05/2023 TSH RFX ON ABNOR MAL TO FREE T4 TSH 1.240 uIU/m L 0.450- 4.500 Not Available [facility] ([facility]) [address] [place], [address], 10/05/2023 10:37:00 10/04/19 24 10/05/2023 VITAM IN B12 AND FOLAT E vitamin B12 622 pg/mL 232-12 45 Not Available [facility] ([facility]) [address] [place], [address], 10/05/2023 10:37:00 10/04/19 24 10/05/2023 VITAM IN B12 AND FOLAT E folate (folic acid), serum >20.0 NG/mL >3.0 A serum folat e sreekanth ntrat ion of less than 3.1 ng/mL is consi dered to repre sent clini gustavo defic iency . Not Available [facility] ([facility]) [address] [facility], [place], [address], 10/05/2023 10:37:00 10/04/19 24 10/05/2023 CBC WITH DIFFE RENTI AL/PL ATELE T WBC 5.6 x10e3 /uL 3.4-10 .8 Not Available [facility] ([facility]) [address] [facility], [place], [address], 10/05/2023 10:37:01 10/04/1910/05/2023 CBC WITH DIFFE RENTI AL/PL ATELE T RBC 4.25 x10e6 /uL 3.77-5 .28 Not Available [facility] ([facility]) [address] [facility], [place], [address], 10/05/2023 10:37:01 10/04/19 24 10/05/2023 CBC WITH DIFFE RENTI AL/PL ATELE T hemoglobin 13.3 g/dL 11.1-1 5.9 Not Available [facility] ([facility]) [address] [facility], [place], [address], 10/05/2023 10:37:01 10/04/19 24 10/05/2023 CBC WITH DIFFE RENTI AL/PL ATELE T hematocrit 40.0 % 34.0-4 6.6 Not Available [facility] ([facility]) [address] [facility], [place], [address], 10/05/2023 10:37:01 10/04/1910/05/2023 CBC WITH DIFFE RENTI AL/PL ATELE T MCV 94 fL 79-97 Not Available [facility] ([facility]) [address] [facility], [place], [address], 10/05/2023 10:37:01 10/04/19 24 10/05/2023 CBC WITH DIFFE RENTI AL/PL ATELE T MCH 31.3 pg 26.6-3 3.0 Not Available [facility] ([facility]) [address] [facility], [place], [address], 10/05/2023 10:37:01 10/04/19 24 10/05/2023 CBC WITH DIFFE RENTI AL/PL ATELE T MCHC 33.3 g/dL 31.5-3 5.7 Not Available [facility] ([facility]) [address] [facility], [place], [address], 10/05/2023 10:37:01 10/04/1910/05/2023 CBC WITH DIFFE RENTI AL/PL ATELE T RDW 12.1 % 11.7-1 5.4 Not Available [facility] ([facility]) [address] [facility], [place], [address], 10/05/2023 10:37:01 10/04/19 24 10/05/2023 CBC WITH DIFFE RENTI AL/PL ATELE T platelets 252 x10e3 /uL 150-45 0 Not Available [facility] ([facility]) [address] [facility], [place], [address], 10/05/2023 10:37:01 10/04/19 24 10/05/2023 CBC WITH DIFFE RENTI AL/PL ATELE T neutrophils 56 % notest ab. Not Available [facility] ([facility]) [address] [facility], [place], [address], 10/05/2023 10:37:01 10/04/19 24 10/05/2023 CBC WITH DIFFE RENTI AL/PL ATELE T lymphs 32 % notest ab. Not Available [facility] ([facility]) [address] [facility], [place], [address], 10/05/2023 10:37:01 10/04/19 24 10/05/2023 CBC WITH DIFFE RENTI AL/PL ATELE T monocytes 9 % notest ab. Not Available [facility] ([facility]) [address] [facility], [place], [address], 10/05/2023 10:37:01 10/04/1910/05/2023 CBC WITH DIFFE RENTI AL/PL ATELE T eos 2 % notest ab. Not Available [facility] ([facility]) [address] [facility], [place], [address], 10/05/2023 10:37:01 10/04/19 24 10/05/2023 CBC WITH DIFFE RENTI AL/PL ATELE T basos 1 % notest ab. Not Available [facility] ([facility]) [address] [facility], [place], [address], 10/05/2023 10:37:01 10/04/19 24 10/05/2023 CBC WITH DIFFE RENTI AL/PL ATELE T neutrophils (absolute) 3.1 x10e3 /uL 1.4-7. 0 Not Available [facility] ([facility]) [address] [facility], [place], [address], 10/05/2023 10:37:01 10/04/1910/05/2023 CBC WITH DIFFE RENTI AL/PL ATELE T lymphs (absolute) 1.8 x10e3 /uL 0.7-3. 1 Not Available [facility] ([facility]) [address] [facility], [place], [address], 10/05/2023 10:37:01 10/04/19 24 10/05/2023 CBC WITH DIFFE RENTI AL/PL ATELE T monocytes(ab solute) 0.5 x10e3 /uL 0.1-0. 9 Not Available [facility] ([facility]) [address] [facility], [place], [address], 10/05/2023 10:37:01 10/04/19 24 10/05/2023 CBC WITH DIFFE RENTI AL/PL ATELE T eos (absolute) 0.1 x10e3 /uL 0.0-0. 4 Not Available [facility] ([facility]) [address] [facility], [place], [address], 10/05/2023 10:37:01 10/04/19 24 10/05/2023 CBC WITH DIFFE RENTI AL/PL ATELE T baso (absolute) 0.1 x10e3 /uL 0.0-0. 2 Not Available [facility] ([facility]) [address] [facility], [place], [address], 10/05/2023 10:37:01 10/04/19 24 10/05/2023 CBC WITH DIFFE RENTI AL/PL ATELE T immature granulocytes 0 % notest ab. Not Available [facility] ([facility]) [address] [facility], [place], [address], 10/05/2023 10:37:01 10/04/19 24 10/05/2023 CBC WITH DIFFE RENTI AL/PL ATELE T immature grans (abs) 0.0 x10e3 /uL 0.0-0. 1 Not Available [facility] ([facility]) [address] [facility], [place], [address], 10/05/2023 10:37:01 10/04/19 24 10/05/2023 VITAM IN D, 25-HY DROXY vitamin D, 25-hydroxy 35.2 NG/mL 30.0-1 00.0 Vitam in D defic iency has been defin ed by the Insti tute of Medic ine and an Endoc rine Socie ty pract ice guide line as a level of serum 25-OH vitam in D less than 20 ng/mL (1,2) . The Endoc rine Socie ty went on to furth er defin e vitam in D insuf ficie ncy as a level betwe en 21 and 29 ng/mL (2). 1. IOM (Inst itute of Medic ine). 2010. Dieta ry refer ence kacy es for calci um and D. Norman lee [place]: The [facility] [place] [facility] . 2. Holic k [place], [address] [place], Balaji off-F errar i MATTHEW, et al. Evalu ation , treat ment, and preve ntion of vitam in D defic iency : an Endoc rine Socie ty clini gustavo pract ice guide line. JCEM. 2010; 96(7) :1911 -30. Not Available [facility] ([facility]) [address], [place], [address], 10/05/2023 10:37:02 01/18/20 23 01/17/2023 XR, shoul last, 2 or more view No observ ation record ed. [email or web address] [address] [place], [address], 01/19/2023 10:12:15 02/03/20 23 02/02/2023 CT, head, w/o contr ast No observ ation record ed. [email or web address] [address] [place], [address], 02/07/2023 12:46:08 Result Notes None recorded. Problems Name Problem SNOMED Code Status Onset Date Resolution Date Notes Provider Name and Address Organization Details Recorded Time Fatigue 12548670 Active 2017 Chantell Reid APN, FNP-C Attn: Irma santizo,[address] [facility], [place], [address], [facility] 2 14:54:52 Threatened miscarriage in first trimester 27400875 Completed 201703/19/2019 Chantell Reid APN, FNP-C Attn: Irma santizo,[address] [facility], [place], [address], [facility] 0 15:01:06 Acute sinusitis 55621919 Completed 201803/19/2019 Chantell Reid APN, FNP-C Attn: Irma santizo,[address] [facility], [place], [address], [facility] 0 15:00:58 Bereavement 55169989 Active 2020 Chantell Reid APN LEAD DATABASE DEVELOPER-C Attn: Irma santizo,[address] [facility], [place], [address], [facility] [place] 2 14:54:52 Overweight 573245606 Active 2022 Chantell Reid APN LEAD DATABASE DEVELOPER-C Attn: Irma santizo,[address] [facility], [place], [address], [facility] 3 14:57:50 Concussion with no loss of consciousne ss 90673991 Active 2022 Chantell Reid APN LEAD DATABASE DEVELOPER-C Attn: Irma santizo,[address] [facility], [place], [address], [facility] [place] 3 14:14:43 History of anxiety state 437377272 Active 2016 Chantell Reid APN LEAD DATABASE DEVELOPER-C Attn: Irma santizo,[address] [facility], [place], [address], [facility] [place] 2 14:54:52 [id number] Completed 201603/19/2019 Chantell Reid APN LEAD DATABASE DEVELOPER-C Attn: Irma santizo,[address] [facility], [place], [address], [facility] [place] 0 15:01:08 Problem Notes None recorded. Procedures Surgical History Date Name Laterality Status Provider Name and Address Organization Details Recorded Time 2 Suture/Staple removal completed Chantell Reid APN LEAD DATABASE DEVELOPER-C Attn: Accounting,[address] [facility], [place], [address], [facility] 08/07/2021 13:52:21 2 Dilation and Curettage completed Bea Khan [facility] 07/27/2021 14:34:40 2 Dilation and Curettage completed Bea Khan [facility] 07/27/2021 14:34:26 7 Caesarean Section completed Arinrc Roland [place] - [facility] 06/15/2017 16:07:10 3 Tmj repair of joint disc completed Arin Roland [place] - [facility] 04/15/2016 15:15:01 Imaging Results Imaging Date Name Status LastModified by Organiz ation Details LastModified Time 01/17/2023 XR, shoulder, 2 or more view completed [email or web address] [address] [place], [address], 01/19/2023 10:12:15 02/02/2023 CT, head, w/o contrast completed [email or web address] [place], [address], 02/07/2023 12:46:08 Procedure Notes None recorded. Medical Equipment None Reported. Allergies Allergen ID Allergen Name Allergen Category Reaction Reaction Severity Criticality Documentation Date Start Date Code Code System Note Provider Name and Address Organization Details Recorded Time 339270 promethaz ine medicatio n Not available Not available Not available 07/27/20212018 8745 RxNorm Other react ions and sever ities : 'Unkn own'. Not Available Not Available Not Available 682826 metoclopr amide Not available Not available Not available Not available 10/04/20232018 6915 RxNorm Other react ions and sever ities : 'Anxi ety - Mild' . Not Available Not Available Not Available 09376 morphine medicatio n headache Not available Not available 04/15/2016 7052 RxNorm Not Available Not Available Not Available Medications Name Sig Start Date Stop Date Status Note LastModified by Organization Details LastModified Time amoxicillin 500 mg capsule Take 1 capsule every 8 hours by oral route for 10 days. 08/07 completed Not Available Not Available Not Available medroxyprog esterone 10 mg tablet TAKE 1 TABLET BY MOUTH ONCE DAILY FOR 10 DAYS 07/27 completed Not Available Not Available Not Available clindamycin HCl 300 mg capsule 03/19 completed Not Available Not Available Not Available trazodone 50 mg tablet TAKE 1 TABLET BY MOUTH ONCE DAILY AT BEDTIME NEEDED active Not Available Not Available No t Available azithromyci n 250 mg tablet TAKE 2 TABLETS BY MOUTH ON DAY 1, AND THEN TAKE 1 TABLET BY MOUTH ONCE A DAY ON DAY 2 THROUGH DAY 5 01/04 completed Not Available Not Available Not Available nystatin 100,000 unit/gram topical ointment 10/17 completed Not Available Not Available Not Available fluconazole 150 mg tablet Take 1 tablet by oral route as directed. 01/28 completed Not Available Not Available Not Available acetaminoph en 120 mg-codeine 12 mg/5 mL oral solution 07/17 completed Not Available Not Available Not Available hydrocodone 5 mg-acetamin ophen 325 mg tablet TAKE 1 TABLET BY MOUTH EVERY 4 HOURS NEEDED FOR PAIN 07/27 completed Not Available Not Available Not Available metronidazo le 0.75 % (37.5 mg/5 gram) vaginal gel 03/19 completed Not Available Not Available Not Available ondansetron HCl 4 mg tablet TAKE 1 TABLET BY MOUTH EVERY 6 HOURS NEEDED FOR NAUSEA 07/27 completed Not Available Not Available Not Available sertraline 100 mg tablet TAKE 2 TABLETS BY MOUTH ONCE DAILY active Not Available Not Available No t Available terconazole 0.8 % vaginal cream USE DIRECTED VAGINALLY AT BEDTIME FOR 3 NIGHTS 01/28 completed Not Available Not Available Not Available penicillin V potassium 500 mg tablet TAKE 1 TABLET BY MOUTH EVERY 12 HOURS FOR 10 DAYS 08/06 completed Not Available Not Available Not Available metronidazo le 500 mg tablet 03/19 completed Not Available Not Available Not Available terconazole 80 mg vaginal suppository 10/17 completed Not Available Not Available Not Available amoxicillin 875 mg tablet 10/17 completed Not Available Not Available Not Available triamcinolo ne acetonide 0.025 % topical cream 10/17 completed Not Available Not Available Not Available meclizine 25 mg tablet 25 mg by oral route. 2018 active Not Available Not Available Not Avai lable benzonatate 100 mg capsule TAKE 1 CAPSULE BY MOUTH THREE TIMES DAILY FOR 10 DAYS NEEDED FOR COUGH 08/07 completed Not Available Not Available Not Available cephalexin 500 mg capsule 10/14 completed Not Available Not Available Not Available hyoscyamine sulfate 0.125 mg tablet 10/17 completed Not Available Not Available Not Available tobramycin 0.3 % eye drops 10/17 completed Not Available Not Available Not Available nystatin 100,000 unit/gram topical cream 03/19 completed Not Available Not Available Not Available progesteron e micronized 200 mg capsule TAKE 1 CAPSULE BY MOUTH AT BEDTIME (EVERY NIGHT) 01/28 completed Not Available Not Available Not Available Polytrim 10,000 unit-1 mg/mL eye drops INSTILL 1 DROP INTO AFFECTED EYE(S) BY OPHTHALMI C ROUTE EVERY 6 HOURS for 7 days 10/17 completed Not Available Not Available Not Available sertraline 25 mg tablet TAKE 1 TABLET BY MOUTH ONCE DAILY 08/06 completed Not Available Not Available Not Available amoxicillin 125 mg/5 mL oral suspension 10/17 completed Not Available Not Available Not Available prednisolon e 15 mg/5 mL oral solution 01/14 completed Not Available Not Available Not Available amoxicillin 400 mg/5 mL oral suspension 07/27 completed Not Available Not Available Not Available ibuprofen 600 mg tablet TAKE 1 TABLET BY MOUTH THREE TIMES DAILY NEEDED FOR PAIN 08/06 completed Not Available Not Available Not Available methylpredn isolone 4 mg tablets in a dose pack TAKE BY MOUTH DIRECTED ON INSIDE OF PACKAGE 08/06 completed Not Available Not Available Not Available Vitamin D2 1,250 mcg (50,000 unit) capsule 03/19 completed Not Available Not Available Not Available ondansetron 4 mg disintegrat ing tablet 03/19 completed Not Available Not Available Not Available fluticasone propionate 50 mcg/actuati on nasal spray,suspe nsion [place] 2 sprays every day by intranasa l route. 2024 active Not Available Not Available Not Avai lable sertraline 50 mg tablet TAKE 1 TABLET BY MOUTH EVERY DAY FOR 10 DAYS 01/14 completed Not Available Not Available Not Available loratadine 10 mg tablet TAKE 1 TABLET BY MOUTH EVERY DAY NEEDED 08/07 completed Not Available Not Available Not Available metoclopram anna 10 mg tablet 03/19 completed Not Available Not Available Not Available amoxicillin 875 mg-potassiu m clavulanate 125 mg tablet TAKE 1 TABLET BY MOUTH EVERY 12 HOURS FOR 7 DAYS 04/27 completed Not Available Not Available Not Available cholecalcif debbi (vitamin D3) 25 mcg (1,000 unit) capsule active Not Available Not Available Not Available albuterol (refill) 90 mcg/actuati on aerosol inhaler 2 {puff}s by inhalatio n route. 03/14 completed Not Available Not Available Not Available azithromyci n 500 mg tablet 10/17 completed Not Available Not Available Not Available famotidine 03/19 completed OTC Not Available Not Available Not Available 01/14 completed Not Available Not Available Not Available ProAir HFA 90 mcg/actuati on aerosol inhaler 2 {puff}s by inhalatio n route. 03/19 completed Not Available Not Available Not Available Compact Space Chamber-Lrg Mask 03/19 completed Not Available Not Available Not Available Kyleena 17.5 mcg/24 hr (up to 5 years) 19.5 mg intrauterin e device 01/28 completed Not Available Not Available Not Available Twirla 120 mcg-30 mcg/24 hr transdermal patch 01/28 completed Not Available Not Available Not Available Paxlovid 300 mg (150 mg x 2)-100 mg tablets in a dose pack Take 1 dose pk every day by oral route as directed. 10/03 completed Not Available Not Available Not Available Vitals Date Recorded Body height Body mass index (BMI) Body weight Oxygen saturation Oxygen saturation in Arterial blood by Pulse oximetry Heart rate Respiratory rate Body temperature Systolic blood pressure Diastolic blood pressure Provider Name and Address Organization Details Last Updated DateTime 3 162.56 cm 25.6 kg/m2 88616.2 6 g 98 % 98 % 80 /min 16 /min 98 [degF] 104 mm[Hg] 74 mm[Hg] Bea Khan [place] - [facility] 3 14:39:22 Date Recorded Body height Body mass index (BMI) Body weight Oxygen saturation Oxygen saturation in Arterial blood by Pulse oximetry Heart rate Respiratory rate Body temperature Systolic blood pressure Diastolic blood pressure Provider Name and Address Organization Details Last Updated DateTime 3 162.56 cm 25.4 kg/m2 71152.6 7 g 96 % 96 % 86 /min 16 /min 98 [degF] 112 mm[Hg] 72 mm[Hg] Bea Khan [place] - [facility] 3 14:48:20 Date Recorded Body height Body mass index (BMI) Body weight Oxygen saturation Oxygen saturation in Arterial blood by Pulse oximetry Heart rate Respiratory rate Body temperature Systolic blood pressure Diastolic blood pressure Provider Name and Address Organization Details Last Updated DateTime 3 162.56 cm 25.4 kg/m2 91101.6 7 g 98 % 98 % 100 /min 16 /min 98 [degF] 110 mm[Hg] 74 mm[Hg] Bea Khan [facility] 3 12:24:55 Date Recorded Body height Body mass index (BMI) Body weight Oxygen saturation Oxygen saturation in Arterial blood by Pulse oximetry Heart rate Respiratory rate Body temperature Systolic blood pressure Diastolic blood pressure Provider Name and Address Organization Details Last Updated DateTime 3 162.56 cm 24.7 kg/m2 29983.3 g 98 % 98 % 96 /min 16 /min 98 [degF] 108 mm[Hg] 74 mm[Hg] Bea Khan [facility] 3 09:42:51 Date Recorded Body height Body mass index (BMI) Body weight Oxygen saturation Oxygen saturation in Arterial blood by Pulse oximetry Respiratory rate Body temperature Heart rate Systolic blood pressure Diastolic blood pressure Provider Name and Address Organization Details Last Updated DateTime 4 162.56 cm 25.7 kg/m2 97295.8 6 g 99 % 99 % 16 /min 98.2 [degF] 70 /min 106 mm[Hg] 70 mm[Hg] Bea Khan [facility] 4 16:01:49 Social History Question Answer Notes LastModified by Organization Details LastModified Time Tobacco Smoking Status Former Smoker Arin guardado [facility] 04/15/2016 15:06:06 Do You Have An Advance Directive? No Information not available 07/18/2019 What Is Your Level Of Alcohol Consumption? Occasional Information not available 05/29/2020 Are You Blind Or Do You Have Difficulty Seeing? No Information not available 05/29/2020 What Is Your Level Of Caffeine Consumption? Moderate Coffee [email or web address] Information not available 08/06/2022 How Much Tobacco Do You Chew? None Information not available 06/15/2017 In The 14 Days Before Symptom Onset, Have You Had Close Contact With A Laboratory-con firmed COVID-19 While That Case Was Ill? No Information not available 07/18/2019 In The 14 Days Before Symptom Onset, Have You Had Close Contact With A Person Who Is Under Investigation For COVID-19 While That Person Was Ill? No Information not available 07/18/2019 Have You Been To An Area Known To Be High Risk For COVID-19? No Information not available 07/18/2019 Are You Currently Employed? No Information not available 10/04/2023 Are You Deaf Or Do You Have Serious Difficulty Hearing? No Information not available 05/29/2020 What Type Of Diet Are You Following? REGULAR Information not available 04/15/2016 Which Illicit Or Recreational Drugs Have You Used? Denies Information not available 06/15/2017 Do You Or Have You Ever Used E-cigarettes Or Vape? Former User Of Electronic Cigarettes [email or web address] Information not available 08/06/2022 Education 12 [email or web address] Information not available 05/12/2018 Are There Any Guns Present In Your Home? Yes Safe Information not available 07/18/2019 Hard Of Hearing Or Deaf In One Or Both Ears? No Information not available 06/15/2017 Legally Blind In One Or Both Eyes? No Information not available 06/15/2017 Marital Status Single Informatio n not available 07/18/2019 What Was The Date Of Your Most Recent Tobacco Screening? 10/04/2023 Information not available 10/04/2023 How Many Children Do You Have? 2 Information not available 08/07/2021 Performs Monthly Self-breast Exam? Yes Information not available 06/15/2017 Do You Have Any Pets? Yes 3 Dogs. Information not available 04/27/2022 Do You Use Protection During Sex? No Information not available 08/07/2021 What Is Your Relationship Status? Information not available 08/07/2021 Do You Use Your Seat Belt Or Car Seat Routinely? Yes Information not available 08/07/2021 Seat Belts Used Routinely Yes Information not available 07/18/2019 Are You Sexually Active? Yes Information not available 08/07/2021 Smoke Alarm In Home Yes Information not available 07/18/2019 Do You Have Smoke And Carbon Monoxide Detectors In Your Home? Yes Information not available 05/29/2020 Are You Passively Exposed To Smoke? No Information not available 05/29/2020 Do You Or Have You Ever Used Smokeless Tobacco? Never Used Smokeless Tobacco Information not available 07/18/2019 How Much Tobacco Do You Smoke? No Information not available 06/15/2017 General Stress Level Medium Information not available 07/18/2019 Do You Feel Stressed (tense, Restless, Nervous, Or Anxious, Or Unable To Sleep At Night)? [id number] Information not available 10/04/2023 Do You Use Any Illicit Or Recreational Drugs? No Information not available 05/29/2020 Do You Use Sunscreen Routinely? Yes SPF On Face Information not available 04/27/2022 Has Tobacco Cessation Counseling Been Provided? Yes Information not available 01/28/2022 On What Date Was Tobacco Cessation Counseling Provided? 10/04/2023 Information not available 10/04/2023 What Type Of Noise Exposure Are You Exposed To? NoExposureToExcessiveNois e Information not available 04/27/2022 Do You Or Have You Ever Used Any Other Forms Of Tobacco Or Nicotine? Yes Information not available 05/29/2020 Sex: Female Functional Status Question Answer Note LastModified by Organizat ion Details LastModified Time Are you able to care for yourself? Yes Information not available 05/29/2020 What is your exercise level? Occasional Information not available 10/04/2023 Mental Status None recorded. Family History Relationship Description Onset Age of this Age Resolved Age Notes LastModified by Organization Details LastModified Time Mother Depressive disorder Not available 2016 15:05:44 Father Depressive disorder Not available 2016 15:05:50 Father Hypertensive disorder Not available 2016 15:05:57 Medical History Condition Response Coronary Artery Disease N Other N High Blood Pressure N Atrial Fibrillation N Thyroid Problems N Kidney or Bladder Problems N GI Problems N Depression N COPD N Blood Clots N Skin Problems N Eating Disorder N Anemia N Heart Attack ([place]) N Anxiety Disorder Y Diabetes N Muscle, Joint, or Bone Problems N Seizures/Epilepsy N Acid Reflux (GERD) N Cancer N Stroke N Asthma N Allergies N ADHD N Substance Abuse N High Cholesterol N Hepatitis N Liver Disease N Schizophrenia N Headaches N Heart Failure N Osteoporosis N Gynecological History Statement/Question Response Flow Moderate Date of LMP 09/23/2023 Menses Monthly N Duration of Flow (days) 7 Current Control Method None LMP Definite Obstetrics History GPAL:G 4 P 2 0 1 2 Type Value Full Term 2 Spontaneous 1 Living 2 Total 4 Immunizations Vaccine Type Date Status Note Provider Name and Address Organization Details Recorded Time COVID-19, mRNA, LNP-S, PF, 30 mcg/0.3 mL dose 07/10/19 21 completed Chantell Reid APN, LEAD DATABASE DEVELOPER-C Attn: Accounting[address] [place], [address], [facility] 01/28/2022 15:08:39 Tdap 08/01/19 22 completed Chantell Reid APN, LEAD DATABASE DEVELOPER-C Attn: Accounting[address] [facility], [place], [address], [facility] 10/04/2023 16:15:01 Tdap 08/30/19 19 completed Not Available [facility] 03/31/2019 02:37:37 Influenza, split virus, quadrivalent, preservative 01/15/20 21 cancelled patient objection Chantell Reid APN, LEAD DATABASE DEVELOPER-C Attn: Accounting[address] [facility], [place], [address], [facility] 01/15/2021 22:02:55 Past Encounters Encounter ID Performer Location Encounter Start Date Encounter Closed Date Diagnosis/Indication Diagnosis SNOMED-CT Code Diagnosis ICD10 Code Diagnosis Note [id number] Chantell Reid APN, LEAD DATABASE DEVELOPER-C [facility] (Adult Med) [address] [place] [address] 04/15/2016 14:57:52 04/15/2016 17:13:21 51707349 Z33.1 Cont to see OB for care. History of anxiety state 501647462 Z86.59 pt is but wants to be seen as new pt so she can go back on medication s after delivery- due August 21, 2016 Adult heal th examination 230328504 Z00.00 labs to be sent from OB and former PCP; [id number] Chantell Reid APN, FNP-C [place] (Adult Med) [address] [facility] [place] [address] 06/15/2017 15:46:06 06/16/2017 08:25:49 Fatigue 63589022 R53.83 dwp to cont fluids, snacks and sleeping, consider weaning from nursing as much, possibly none. Obtain labs, plan pending. Excessive thirst 7770684 7 R63.1 dwp to cont fluids, will check a2c and cbc Suprapubic pain 53959328 6 R10.33 suprapubic pain on exam, dip urine here in office. [id number] Chantell Reid APN, FNP-C [place] (Adult Med) [address] [facility] [place] [address] 06/21/2017 16:13:24 06/22/2017 08:26:25 Fatigue 39119808 R53.83 dwp to cont fluids, snacks and sleeping, consider weaning from nursing as much, possibly none. Labs normal, dwp sending to sleep study as she also has family hx of sleep apnea [id number] Chantell Reid APN, FNP-C [place] (Adult Med) [address] [place] [address] 10/17/2017 15:50:26 10/18/2017 08:29:37 History of anxiety state 552777754 Z86.59 Pt willing to stop breastfeed ing to start zoloft. dwp to start at 25 mg qd for week on then to increase each week till reaching effective dose. also will refer to psych. [id number] Chantell Reid APN, FNP-C [facility] (Adult Med) [address] [place] [address] 11/08/2017 11:13:08 11/08/2017 15:55:07 Upper respiratory infection 80373706 J06.9 loratidine use ok for , increase fluids, get plenty of rest Abdominal pain 53808713 R10.9 dwp results and to call ob for f/u; take PNV daily test positive 214047544 Z32.01 f/u with ob as discussed [id number] Chantell Reid APN, FNP-C [place] (Adult Med) [address] [place] [address] 05/12/2018 15:07:19 05/15/2018 09:03:48 Influenza-like symptoms 001483531 R68.89 rapid flu test negative, dwp to maintain hydration to go to ER if any worsening condition, such as vomiting or fever Posterior rhinorrhea 758 61194 R09.82 increased nasal secretions 25208465 Z33.1 Cont to see OB for care. [id number] Janice [facility] (Adult Med) [address] [place] [address] 08/29/2018 15:54:39 08/30/2018 13:46:31 Active or passive immunization 835493013 Z23 [id number] Chantell Reid APN, FNP-C [place] (Adult Med) [address] [place] [address] 03/19/2019 14:41:01 03/20/2019 08:40:09 Streptococcal sore throat 50129626 J02.0 exposed to strep, palate erythemato us with moderate petechiae, rapid test neg.; will treat for strep with amox 500 mg tid x10 days; Recurrent acute streptococcal tonsillitis 5306324753 9818963 J03.01 3 times of strep in past 6 months [id number] Chantell Reid APN, FNP-C [place] (Adult Med) [address] [place] [address] 07/18/2019 08:15:51 07/19/2019 11:36:37 Exposure to SARS-CoV-2 400255322 Z20.828 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 Continue to treat symptoms. Pain in throat 092827627 R07.0 c/o pain since yesterday; reviewed photos with patient, advised covid screening as throat does not have typical strep appearance [id number] JANEE MEEKS [address] [place] [address] 07/18/2019 10:58:17 07/18/2019 14:46:47 Sore throat 056859902 J02.9 [id number] JANEE MEEKS [address] [place] [address] 10/08/2019 13:35:26 10/09/2019 07:13:14 Suspected COVID-19 575023360 Z03.839 [id number] Chantell Reid APN, FNP-C [place] (Adult Med) [address] [place] [address] 10/15/2019 11:52:58 10/15/2019 16:56:35 Patient informed - test result 950575860 Z71.2 covid test results given to pt, work note needed [id number] Chantell Reid APN, FATOUMATA [facility] (Adult Med) [address] [facility] [place] [address] 05/29/2020 10:03:51 05/30/2020 12:49:03 History of anxiety state 600189810 Z86.59 cont zoloft. dwp resume prior dosing; Bereavement 30394315 Z63 .4 dwp grieving and support options [id number] Chantell Reid APN, FNP-C [place] (Adult Med) [address] [place] [address] 01/14/2021 15:48:39 01/16/2021 07:43:29 History of anxiety state 536518980 Z86.59 cont zoloft.pt would like to try going back down to 100 mg Influenza vaccination declined 927440614 Z28.21 Fatigue 99453101 R53.83 dwp to cont fluids, snacks and sleeping, consider weaning from nursing as much, possibly none. Labs normal, dwp sending to sleep study as she also has family hx of sleep apnea [id number] Chantell Reid APN, FNP-C [place] (Adult Med) [address] [place] [address] 07/27/2021 14:20:01 07/28/2021 11:41:17 Viral upper respiratory tract infection 305902888 J06.9 covid neg, cont symptom mgmt History of anxiety state 709049697 Z86.59 stable, no si or hi cont zoloft 100 mg Electronic cigarette user 476146952 Z72.89 Smoking cessation encouraged . [id number] Chantell Reid APN, FNP-C [place] (Adult Med) [address] [place] [address] 08/07/2021 12:41:55 08/11/2021 08:00:32 Removal of arlen 87627027 Z48.02 5 arlen to left side scalp above ear Candidiasis of vagina 72 805301 B37.3 prone to yeast infections with abx use Injury of head 96949301 S09.90XD was kicked in head by her horse, records reviewed, head injury precaution s discussed [id number] Chantell Reid APN, FNP-C [place] (Adult Med) [address] [place] [address] 01/28/2022 14:49:44 02/02/2022 10:55:20 History of anxiety state 943958217 Z86.59 stable, no si or hi cont zoloft 100 mg Adult [facility] th examination 821451455 Z00.01 labs to be sent from OB and former PCP; Dysfunctio n of eustachian tube 23760052 H68.013 clear fluid behind TM, dwp to start inhaled nasal steroid to reduce inflammati on [id number] [facility] [address] [place] [address] 04/27/2022 12:04:45 04/29/2022 09:10:41 Acute otitis media 9437847 H66.92 no fluid Chronic rhinitis 7329153 6 J31.0 Otitis ext mendy of left ear 3402495115 303762 H60.92 keep ears dry problems may be ext otitis rather than otits media [id number] Chantell Reid APN, FNP-C [place] (Adult Med) [address] [place] [address] 08/06/2022 14:24:35 08/10/2022 13:51:09 History of anxiety state 619624097 Z86.59 stable, no si or hiincrease d depression - cont zoloft increase up to 200 mg Always sleepy 744735107 G47.10 not waking refreshed, can sleep a lot, will send to neuro for sleep med;hx of concussion Overweight 399832997 E66 .3 advised low fat, low cholestero l, low carb diet, regular exercise and weight reduction. [id number] Chantell Reid APN, FNP-C [place] (Adult Med) [address] [place] [address] 12/01/2022 14:40:24 12/07/2022 16:20:04 Upper respiratory infection 42514036 J06.9 Mucinex and other OTC cold/cough remedies are fine to take, increase fluids and have good handwashin g. Get plenty of rest. Overweight 161113708 E66 .3 advised low fat, low cholestero l, low carb diet, regular exercise and weight reduction. Generalize d aches and pains 11095780 R52 will check for covid and flu History of anxiety state 042332635 Z86.59 stable, no si or hiimproved depression - cont zoloft 200 mg per day Chronic rhinitis 5963011 6 J31.0 [id number] Chantell Reid APN, FNP-C [place] (Adult Med) [address] [place] [address] 01/04/2023 12:10:15 01/11/2023 14:51:13 Fall R29.6 hx of falling off horse, advised helmet use Concussion with no loss of consciousness 93143664 S06.0X0A hx of prior concussion as well, precaution s reviewed with pt, Pain of ri ght shoulder joint 6755549453 1113015 M25.511 pain to right shoulder since fall, popped it back in place, still sore, advised heat/ice and will get xray if not improving on own [id number] Chantell Reid APN, FNP-C [place] (Adult Med) [address] [place] [address] 01/17/2023 09:32:03 01/19/2023 08:44:26 Postconcussion syndrome 36395055 F07.81 still remains sensitive to lights and having headaches every day since concussion . denies dizziness or nauseawill get head CT [id number] Chantell Reid APN, FNP-C [place] (Adult Med) [address] [place] [address] 10/04/2023 15:34:13 10/10/2023 11:05:25 History of anxiety state 659453407 Z86.59 stable, no si or hiimproved depression - cont zoloft 200 mg per day Insomnia 337575833 F51.0 1 not sleeping due to anxietysta rt trazodone R/B/A/SE of antidepres anayeli medication discussed such as gastrointe stinal s/e, mood irritabili ty, Suicidal ideation, risk of tasha.. Call with concerns and questions. Compliance with medication s and follow up care strongly recommende d. Call 911 or ER for crises. Fatigue 60541422 R53.83 dwp to cont fluids, snacks and sleeping, consider weaning from nursing as much, possibly none. Labs normal, dwp sending to sleep study as she also has family hx of sleep apnea Cholesterol screening 27 2881335 Z13.220 Irregular periods 268914 07 N92.6 advised follow up with gyne Health Concerns Section Related Observation LastModified by Organization Detai ls LastModified Time None Recorded Concern Status LastModified by Organization Details LastModified Time None Recorded Advance Directives Directive N: Payers Encounter Date Sequence Insurance Name Policy Number Policy Garcia Covered Member ID Garcia Member ID Guarantor Name 08/06/2022 1 [place] [id number] Maurilio Bains [id number] Nancy Rebollar 12/01/2022 1 [place] [id number] Maurilio [id number] Nancy Kellyera 01/04/2023 1 [place] [id number] Maurilio Carolinaand [id number] Nancy Stringer Rebollar 01/17/2023 1 [place] [id number] Maurilio Carolinaand [id number] Nancy Kellyera 10/04/2023 1 [place] [id number] Maurilio Carolinaand [id number] Nancy Rebollar Notes Date Note Type Note Provider Name and Address Organization Details Recorded Time 08/06/2022 text/html Sertraline still not helping with increase, can get very withdrawn, can get manic and have depression in cycles, poor impulse control; pt wants sleep study. pt c/o always tired, very heavy sleeper. No aware of snoring. pt states she can fall asleep anytime. Chantell Reid APN, LEAD DATABASE DEVELOPER-C Attn: Accounting, [address] [facility], [place], [address], [facility] 08/09/2022 23:01:15 12/01/2022 text/html sinus issues las t week. got worse on Tuesday. chest tightness, fatigue. denies sore throat, h/a, diarrhea, vomiting, fever. tried otc dayquil. home covid test this morning was neg. states she took covid tests last week and all neg too ok on current dose of sertraline, no SI or HI Chantell Reid APN, LEAD DATABASE DEVELOPER-C Attn: Account[address] [facility], [place], [address], [facility] 12/01/2022 15:38:59 01/04/2023 text/html fell off horse o n Tuesday- possible concussion. tiredness, forgetful, and headaches . taking tylenol otcdenies nausea or vomitingright shoulder pain as well Chantell Reid APN, LEAD DATABASE DEVELOPER-C Attn: Accounting,[address] [facility], [place], [address], [facility] 01/04/2023 14:15:31 01/17/2023 text/html Still sensitive to lights and having headaches every day since concussion. denies dizziness or nausea Chantell Reid APN, VEENAC Attn: Accounting,[address] [facility], [place], [address], [facility] [place] 01/17/2023 09:57:23 10/04/2023 text/html pt c/o feeling m ore anxious and not getting enough sleep. pt states she stays up worrying about things. noticed it happening more in the last month but denies triggers. noticed heart palpitations when feelings anxious pt states her periods are super heavy the last 6 months and plans to talk with obgyn about getting an ablation Chantell Reid APN, VEENAC Attn: Accounting,[address] [facility], [place], [address], [facility] [place] 10/05/2023 15:49:00 OBGyn Episode No OBEpisode recorded.
--- OUTSIDE RECORDS SUMMARY | 2024-05-05 17:39 | XMS_ITS | Clinical Summary ---
Author Organization [facility] Address [address] [place] [phone] Phone Care Team Providers Care Clinical Dietician Name Role Phone Unavailable Primary Care Provider Unavailabl e Allergies Active Allergy Reactions Criticality Noted Date Comments Morphine Shortness of Breath/Wheezing High 018 Medications sertraline (ZOLOFT) 100 mg tablet Take 200 mg by mouth daily. Active cholecalciferol, Vitamin D3, (VITAMIN D3) 1,000 unit Capsule Take by mouth daily. 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 Gender Identity Not on file Sexual Orientation Not on file Last Filed Vital Signs Vital Sign Reading Time Taken Comments Blood Pressure - - Pulse 84 03/28/2017 10:33 AM MANAGER DATA WAREHOUSING Temperature - - Respiratory Rate 18 03/28/2017 10:33 AM MANAGER DATA WAREHOUSING Oxygen Saturation 97% 03/28/2017 10:33 AM MANAGER DATA WAREHOUSING Inhaled Oxygen Concentration - - Weight 53.1 kg (117 lb) 03/28/2017 10:33 AM MANAGER DATA WAREHOUSING Height 160 cm (5' 3 ) 03/28/2017 10:33 AM MANAGER DATA WAREHOUSING Body Mass Index 20.73 03/28/2017 10:33 AM MANAGER DATA WAREHOUSING Plan of Treatment Health Maintenance Due Date Last Done Comments DTAP/TDAP/TD VACCINES (1 - Tdap) 2012 HEPATITIS B VACCINES (1 of 3 - 19+ 3-dose series) 2012 CERVICAL CANCER SCREENING 2023 INFLUENZA VACCINE (#1) 2023 Preventative Visit- Commercial 03/14/2024 HPV VACCINES Aged Out No longer eligi ble based on patient's age to complete this topic Insurance BLUE [employer]/TRUE BLUE PPO
--- OUTSIDE RECORDS SUMMARY | 2024-05-05 17:39 | XMS_ITS | Clinical Summary ---
Author Organization [facility] Address [address] [place] [address] Care Team Providers Care Electronic Sales And Service Technician Name Role Phone JeanetteCalvinChantellnikunj Branch NP Primary Care Provider Allergies Active Allergy Reactions Criticality Noted Date Comments Morphine Other Itching Low 05/29/2018 Unknown antiemetic, given at [facility] Promethazine Unknown 06/01/2018 Metoclopramide Anxiety Low 06/08/2018 Medications sertraline (ZOLOFT) 100 mg tablet Take 200 mg by mouth. Active cholecalciferol (VITAMIN D-3) 1,000 unit capsule Take by mouth. Active prenat vit 14-[id number]-[id number]-om3, 6 35-5-1.2-400 mg capsule Take by mouth daily. Active albuterol HFA (PROVENTIL HFA,VENTOLIN HFA,PROAIR HFA) 90 mcg/actuation inhaler Inhale 2 puffs every 4 (four) hours as needed for wheezing. 1 Inhaler 8 Active ondansetron ODT (ZOFRAN-ODT) 4 mg disintegrating tablet Dissolve 1 tablet oral every 4 hours as needed for nausea or vomiting. 15 tablet 9 Active ondansetron ODT (ZOFRAN-ODT) 4 mg disintegrating tablet Dissolve 1 - 2 tablet oral every 6 hours as needed for nausea or vomiting. 15 tablet 9 Active meclizine (ANTIVERT) 25 mg tablet Take 1 tablet (25 mg total) by mouth 3 (three) times a day as needed for dizziness 20 tablet 9 Active Active Problems Problem Noted Date Diagnosed Date Acute left otitis media 06/01/2018 Non-intractable vomiting with nausea 06/01/2018 Acute sinusitis 03/16/2018 Threatened miscarriage in early 2017 Surgical History Surgery Date Site/Laterality Comments SECTION BILATERAL TEMPOROMANDIBULAR JOINT ARTHROPLASTY TONSILLECTOMY Medical History Medical History Date Comments Anxiety Social History Tobacco Use Types Packs/Day Years Used Date Smoking Tobacco: Never Smokeless Tobacco: Never Alcohol Use Standard Drinks/Week Comments No 0 (1 standard drink = 0.6 oz pur e alcohol) Personal Safety Answer Date Recorded Getting School Help Needed Not on file 03/03 Comments No Sex and Gender Information Value Date Recorded Sex Assigned at Not on file Legal Sex Female 6:48 PM WELL REACTIVATOR OPERATOR Gender Identity Not on file Sexual Orientation Not on file Obstetrics History Para Term AB IAB SAB Ectopic Multiple Livin g Live Births 1 Date Outcome GA Total Labor Labor/2nd/3rd Weight Sex Type Anes PTL Latisha A1 A5 Name Clin Last Filed Vital Signs Vital Sign Reading Time Taken Comments Blood Pressure 124/79 03/15/2020 2:03 AM WELL REACTIVATOR OPERATOR Pulse 79 03/15/2020 2:03 AM WELL REACTIVATOR OPERATOR Temperature 36.9 C (98.5 F) 03/15/2020 1:32 AM WELL REACTIVATOR OPERATOR Respiratory Rate 16 03/15/2020 1:32 AM WELL REACTIVATOR OPERATOR Oxygen Saturation 99% 03/15/2020 1:32 AM WELL REACTIVATOR OPERATOR Inhaled Oxygen Concentration - - Weight 54.4 kg (120 lb) 03/15/2020 1:32 AM WELL REACTIVATOR OPERATOR Height 162.6 cm (5' 4 ) 03/15/2020 1:32 AM WELL REACTIVATOR OPERATOR Body Mass Index 20.6 03/15/2020 1:32 AM WELL REACTIVATOR OPERATOR Plan of Treatment Health Maintenance Due Date Last Done Comments Cervical Cancer Screening 1993 Depression Screening 1993 Hepatitis C Screening 1993 Varicella Vaccines (1 of 2 - 13+ 2-dose series) 2006 Hepatitis B Screening 2011 Regular Well Visit/Exam 18-64 2011 Covid-19 Vaccine (2 - 2023-2 5 season) 2023 07/09/2020 Influenza Vaccine (#1) 2023 DTaP/Tdap/Td Vaccine (3 - Td or Tdap) 08/01/2031 07/31/2021, 08/29/2018 HPV Vaccines Aged Out No longer eligi ble based on patient's age to complete this topic Pneumococcal vaccine <65 Aged Out No longer eligible based on patient's age to complete this topic Insurance IDPA [facility] HE[facility] PLAN [employer] [place] IDPA BLUE ACCESS OOS [employer] ACCESS OOS Care Teams Electronic Sales And Service Technician Relationship Specialty Start Date End Date Jeanette, Chantell Branch NP [address] [place] [address] PCP - General 11/22/17
--- OUTSIDE RECORDS SUMMARY | 2024-05-05 17:39 | XMS_ITS | Continuity of Care Document ---
Author Organization [facility] Address [address] [place] [address] [place] [address] Phone Care Team Providers Care Behavioral Analyst Name Role Phone Cassidy OD, Vlad Unavailable Unavailable Procedures Procedure Date CL Replacement - Vistakon Disp W/BW Soft Tax - Medical Advance Directives Directive Yes / No Effective Date File Name No Information Encounters Encounter Description Practice Location Reason(s) For Visit Diagnoses Date Provider Providers Copied on Encounter [facility], [address] [place] [address] [address], [place], [place], [id number], tel:[phone] [address] [facility] No Information 6-200 7 Cassidy OD Vlad. [address] , [address], [place], [address], [place]. tel:[phone] Family History Family Member Type Diagnosis Age At Onset No Information Payers Payer name Insurance type Covered constitution party ID Authoriza tion(s) No Information Social History Type Description Quantity Date Captured Comments Sex Female Smoking Status No Information Chief Complaint And Reason For Visit No Information Reason For Referral Reason For Referral No Information History Of Present Illness Encounter Date Complaint History Of Prese nt Illness No Information Functional Status Date Functional Assessmen t No Information Instructions Date Instruction Additional Infor mation No Information Assessments Type Assessment Date No Information Patient Care Teams Name Effective Dates (start - stop) Status Members No Information
--- OUTSIDE RECORDS SUMMARY | 2024-05-05 17:39 | XMS_ITS | Referral Summary ---
Author Organization [facility] Address [address] [place] [address] Care Team Providers Care Service Parts Driver Name Role Phone Jeanette Chantellnikunj Branch NP Primary Care Provider Allergies Active Allergy Reactions Criticality Noted Date Comments Morphine Other Itching Low 05/29/2018 Unknown antiemetic, given at [facility] Promethazine Unknown 06/01/2018 Metoclopramide Anxiety Low 06/08/2018 Medications sertraline (ZOLOFT) 100 mg tablet Take 200 mg by mouth. Active cholecalciferol (VITAMIN D-3) 1,000 unit capsule Take by mouth. Active prenat vit 74-yggt-ugfpx-om3, 6 35-5-1.2-400 mg capsule Take by mouth [...] sinusitis 03/16/2018 Threatened miscarriage in early 2017 Social History Tobacco Use Types Packs/Day Years [...] on file Legal Sex Female 6:48 PM DECONTAMINATION WORKER Gender Identity Not on file Sexual Orientation Not on file Last Filed Vital Signs Vital Sign Reading Time Taken Comments Blood Pressure 124/79 03/15/2020 2:03 AM DECONTAMINATION WORKER Pulse 79 03/15/2020 2:03 AM DECONTAMINATION WORKER Temperature 36.9 C (98.5 F) 03/15/2020 1:32 AM DECONTAMINATION WORKER Respiratory Rate 16 03/15/2020 1:32 AM DECONTAMINATION WORKER Oxygen Saturation 99% 03/15/2020 1:32 AM DECONTAMINATION WORKER Inhaled Oxygen Concentration - - Weight 54.4 kg (120 lb) 03/15/2020 1:32 AM DECONTAMINATION WORKER Height 162.6 cm (5' 4 ) 03/15/2020 1:32 AM DECONTAMINATION WORKER Body Mass Index 20.6 03/15/2020 1:32 AM DECONTAMINATION WORKER Plan of Treatment Not on file Insurance IDPA [facility] HEALTH PLAN [place] [employer] [employer] ACCESS OOS YAZUO OOS Care Teams Service Parts Driver Relationship Specialty Start Date End Date Chantell Reid NP [address] [place] [address] PCP - General 11/22/17
--- OUTSIDE RECORDS SUMMARY | 2024-05-05 17:39 | XMS_ITS | Referral Summary ---
Author Organization [facility] Address [address] [place] [address] Care Team Providers Care Full Time Staff Interpreter Name Role Phone Chantell Reid APRN-SCIENTIST IMMUNOLOGY Primary Care Provider [phone] Source Comments [facility],non-owned Affiliates and Associated Physician Practices is amultiple site organization consisting of ambulatory clinics and hospital sitesin [place], [place], [place] and [place]. This disclosure is being madepursuant to the Care Everywhere program and may not contain all information available regarding this patient. Last updated 17.[facility] Allergies Active Allergy Reactions Criticality Noted Date Comments Morphine Dizziness Low 07/31/2021 Promethazine Itching Low 07/31/2021 Metoclopramide Psychiatric Medium 07/31/2021 Active Problems Problem Noted Date Diagnosed Date Struck by horse 07/31/2021 Immunizations Name Administration Dates Next Due TDAP (7yrs+) 07/31/2021 Social History Tobacco Use Types Packs/Day Years Used Date Smoking Tobacco: Never Smokeless Tobacco: Never Alcohol Use Standard Drinks/Week Comments Never 0 (1 standard drink = 0.6 oz pur e alcohol) Sex and Gender Information Value Date Recorded Sex Assigned at Not on file Gender Identity Not on file Sexual Orientation Not on file Last Filed Vital Signs Vital Sign Reading Time Taken Comments Blood Pressure 127/84 07/31/2021 7:00 PM CDT Pulse 88 07/31/2021 7:00 PM CDT Temperature 37.8 C (100.1 F) 07/31/2021 6:18 PM CDT Respiratory Rate 14 07/31/2021 7:00 PM CDT Oxygen Saturation 100% 07/31/2021 7:00 PM CDT Inhaled Oxygen Concentration - - Weight 52.2 kg (115 lb) 07/31/2021 6:08 PM CDT Height 162.6 cm (5' 4 ) 07/31/2021 6:08 PM CDT Body Mass Index 19.74 07/31/2021 6:08 PM CDT Plan of Treatment Not on file Care Teams Full Time Staff Interpreter Relationship Specialty Start Date End Date Chantell Reid APRN-KAMAR [address] [place] [address] PCP - General 07/06/21
--- OUTSIDE RECORDS SUMMARY | 2024-05-05 17:39 | XMS_ITS | Clinical Summary ---
Author Organization [facility] Address [address] [place] [address] Care Team Providers Care Cafeteria Server Name Role Phone ReidCalvinChantellnikunj MORENO Primary Care Provider Allergies Active Allergy Reactions Criticality Noted Date Comments Morphine Palpitations,Headache Medium 10/09/2017 Medications ibuprofen 600 MG tablet Take 1 tablet (600 mg total) by mouth every 6 (six) hours as needed for Pain. 20 tablet 10/09/2017 Active cyclobenzaprine 10 MG tablet Take 1 tablet (10 mg total) by mouth 2 (two) times daily as needed for Muscle Spasms. 12 tablet 10/09/2017 Active Social History Tobacco Use Types Packs/Day Years Used Date Smoking Tobacco: Never Alcohol Use Standard Drinks/Week Comments No 0 (1 standard drink = 0.6 oz pur e alcohol) Comments No Sex and Gender Information Value Date Recorded Sex Assigned at Not on file Legal Sex Female 1:08 AM CDT Gender Identity Not on file Sexual Orientation Not on file Last Filed Vital Signs Vital Sign Reading Time Taken Comments Blood Pressure 131/86 10/09/2017 1:11 AM CDT Pulse 69 10/09/2017 1:11 AM CDT Temperature 37.1 C (98.8 F) 10/09/2017 1:11 AM CDT Respiratory Rate 18 10/09/2017 1:11 AM CDT Oxygen Saturation 100% 10/09/2017 1:11 AM CDT Inhaled Oxygen Concentration - - Weight 52.5 kg (115 lb 12.8 oz) 10/09/2017 1:11 AM CDT Height 154.9 cm (5' 1 ) 10/09/2017 1:11 AM CDT Body Mass Index 21.88 10/09/2017 1:11 AM CDT Plan of Treatment Health Maintenance Due Date Last Done Comments Cervical Cancer Screening Pa p Smear (Age 30 to 64) Every 3 Years 1993 Annual Physical 1996 Hepatitis C 2011 DTaP, Tdap and Td Vaccines ( 1 - Tdap) 2012 Hepatitis B Vaccines (1 of 3 - 19+ 3-dose series) 2012 Cervical Cancer Screening Pa p with HPV Testing (Age 30 to 64) Every 5 Years 2023 Cervical Cancer Screening with HPV 2023 COVID-19 Vaccine ( - 2023-2 5 season) 2023 Influenza Adult (#1) 2023 HPV Vaccines Aged Out No longer eligi ble based on patient's age to complete this topic Meningococcal B Vaccine Aged Out No l onger eligible based on patient's age to complete this topic Meningococcal Vaccine Aged Out No galindo nain eligible based on patient's age to complete this topic Pneumococcal Vaccine: Pediat rics (0 to 5 Years) and At-Risk Patients (6 to 64 Years) Aged Out No longer eligible b ased on patient's age to complete this topic RSV Immunizations Under 20 Months Aged Out No longer eligible based on patient's age to complete this topic Insurance [employer] Care Teams Cafeteria Server Relationship Specialty Start Date End Date Jeanette, JOSH Abdul [address] [place] [address] PCP - General NURSE PRACTITIONER 10/09/17
--- OUTSIDE RECORDS SUMMARY | 2024-05-05 17:39 | XMS_ITS | Clinical Summary ---
Author Organization [facility] Address [address] [place] [address] Phone Care Team Providers Care Pulp Grinder Name Role Phone Chantell Reid KAMAR HIGH Primary Care Provider [phone] Allergies Active Allergy Reactions Criticality Noted Date Comments Morphine Palpitations 08/12/2017 Medications HYDROcodone-acet aminophen (NORCO) 5-325 MG Tablet Take 1-2 Tabs by mouth every 6 hours as needed for Severe pain (7-10). 15 Tab 08/12/2017 Active ondansetron (ZOFRAN) 4 MG Tablet Take 1 Tab by mouth every 8 hours as needed for Nausea - 1st line. 10 Tab 08/12/2017 Active Social History Tobacco Use Types Packs/Day Years Used Date Smoking Tobacco: Never Smokeless Tobacco: Never Alcohol Use Standard Drinks/Week Comments No 0 (1 standard drink = 0.6 oz pur e alcohol) Comments No Sex and Gender Information Value Date Recorded Sex Assigned at Not on file Legal Sex Female 8:43 PM CDT Gender Identity Not on file Sexual Orientation Not on file Last Filed Vital Signs Vital Sign Reading Time Taken Comments Blood Pressure 116/65 08/12/2017 11:15 PM CDT Pulse 79 08/12/2017 11:15 PM CDT Temperature 36.5 C (97.7 F) 08/12/2017 9:05 PM CDT Respiratory Rate 15 08/12/2017 11:15 PM CDT Oxygen Saturation 98% 08/12/2017 11:15 PM CDT Inhaled Oxygen Concentration - - Weight 53.1 kg (117 lb) 08/12/2017 9:05 PM CDT Height 162.6 cm (5' 4 ) 08/12/2017 9:05 PM CDT Body Mass Index 20.08 08/12/2017 9:05 PM CDT Plan of Treatment Health Maintenance Due Date Last Done Comments Hepatitis C Virus (HCV) Screening 1993 TdaP Immunization 1993 Hepatitis B Immunization (1 of 3 - 19+ 3-dose series) 2012 Pap Smear 2014 Cervical Cancer Screening (CCS) 2023 HPV/Cotest 2023 Influenza Immunization (#1) 2023 SARS-COV-2 Immunization ( season) 2023 07/09/2020 Respiratory Syncytial Virus (RSV) Immunization (Adult) (1 - 1-dose 75+ series) 2068 Meningococcal Immunization (ACWY) Aged Out No longer eligible based on patient's age to complete this topic Pneumococcal Immunization Combined Aged Out No longer eligible based on patient's age to complete this topic Rotavirus Immunization Aged Out No lo nger eligible based on patient's age to complete this topic Insurance [place], [place] [id number] MEDICAID [employer] Care Teams Pulp Grinder Relationship Specialty Start Date End Date Chantell Reid APRN, KAMAR [address] [place] [address] PCP - General Family Medicine 08/12/17
--- OUTSIDE RECORDS SUMMARY | 2024-05-05 17:39 | XMS_ITS | Patient Health Summary ---
Author Organization [facility] Address [address] [place] [address] Care Team Providers Care Sales Architect Name Role Phone Chantell Reid LEN[employer]OWER Primary Care Provider [phone] Note from [facility],non-owned Affiliates and Associated Physician Practices is amultiple site organization consisting of ambulatory clinics and hospital sitesin [place], [place], [place] and [place]. This disclosure is being madepursuant to the Care Everywhere program and may not contain all information available regarding this patient. Last updated 17.[facility] Allergies * Morphine(Dizziness) -Low Criticality * Promethazine(Itching) -Low Criticality * Metoclopramide(Psychiatric) -Medium Criticality Active Problems Problem Noted Date Diagnosed Date Struck by horse 07/31/2021 Immunizations * TDAP (7yrs+)(Given 07/31/2021) Social History Tobacco Use Types Packs/Day Years [...] Mass Index 19.74 07/31/2021 6:08 PM CDT Procedures * CARDIAC EKG ORDER(Performed 08/03/2021) * URINE DRUG SCREEN IMMUNOASSAY(Performed 07/31/2021) * BLOOD TYPE VERIFICATION(Performed 07/31/2021) * XR HUMERUS LEFT 2VW OR MORE(Performed 07/31/2021) Performed for Trauma * CT CHEST WO CONTRAST(Performed 07/31/2021) Performed for Trauma * CT CERVICAL SPINE WO CONTRAST(Performed 07/31/2021) Performed for Trauma * CT HEAD WO CONTRAST(Performed 07/31/2021) Performed for Trauma * EKG 12-LEAD(Performed 07/31/2021) Performed for Trauma * TYPE + SCREEN PANEL(Performed 07/31/2021) * TEG 6S PLATELET MAPPING(Performed 07/31/2021) * TEG 6 GLOBAL HEMOSTASIS W/ LYSIS(Performed 07/31/2021) * PTT [facility](Performed 07/31/2021) * PT-INR [facility](Performed 07/31/2021) * LIPASE BLOOD(Performed 07/31/2021) * HCG BETA BLOOD QUANTITATIVE(Performed 07/31/2021) * CK BLOOD(Performed 07/31/2021) * CBC W AUTO DIFFERENTIAL(Performed 07/31/2021) * BASIC METABOLIC PANEL (CALCIUM TOTAL)(Performed 07/31/2021) * AMYLASE BLOOD(Performed 07/31/2021) * ALCOHOL ETHYL BLOOD(Performed 07/31/2021) * XR PELVIS 1 OR 2VW(Performed 07/31/2021) Performed for Trauma * XR CHEST 1VW PORTABLE(Performed 07/31/2021) Performed for Trauma Results * CARDIAC EKG ORDER (08/03/2021 10:08 AM CDT) Narrative 08/03/2021 10:08 AM CDT Ordered by an unspecified provider. Scanned Document CARDIAC SERVICES ORD ERABLES * (ABNORMAL) URINE DRUG SCREEN IMMUNOASSAY (07/31/2021 8:47 PM CDT) Amphetamines Screen Urine Negative Negative : < 1000 ng/mL 07/31/2021 9:13 PM [facility] Barbiturates Screen Urine Negative Negative : < 200 ng/mL 07/31/2021 9:13 PM [facility] Benzodiazepine Screen Urine Positive(A) Negative : < 200 ng/mL 07/31/2021 9:13 PM [facility] Comment: Positive urine benzodiazepine screening results should be confirmed by another generally accepted non-immunological method such as gas chromatography or mass spectrometry. Opiates Urine Negative Negative : < 300 ng/mL 07/31/2021 9:13 PM [facility] Cocaine Metabolites Urine Negative Negative : < 300 ng/mL 07/31/2021 9:13 PM [facility] Phencyclidine Screen Urine Negative Negative : < 25 ng/ml 07/31/2021 9:13 PM [facility] Cannabinoids Screen Urine Negative Negative : <50 ng/mL 07/31/2021 9:13 PM [facility] Methadone Screen Urine Negative Negative : < 300 ng/mL 07/31/2021 9:13 PM [facility] Fentanyl Screen Urine Negative Negative : <1.0 ng/mL 07/31/2021 9:13 PM [facility] Urine URINE / Unknown Collection / Unknown 07/31/2021 8:47 PM CDT 07/31/2021 8:52 PM [facility] - 07/31/2021 9:13 PM [facility] [place]NOTE 2] The Urine Toxicology Screening Panel does not screen for Propoxyphene, Meprobamate, Carisoprodol, Trazodone, [id number]-[id number] medications and/or volatiles (Acetone, Isopropanol, Methanol or Ethylene Glycol). Ethanol, Salicylate, Acetaminophen, Tricyclic Antidepressants and several therapeutic drugs may be individually assayed in serum or plasma specimen. Toxicology testing by the [facility] is an aid to medical diagnosis and treatment of patients. No documented chain of custody was maintained. Results are intended to be used for clinical purposes only. Binh Cabrera MD LAB - URINE DATA OPERATIONS DIRECTOR RY ORDERABLES [facility] [address] [place] [address], [facility] [phone] * BLOOD TYPE VERIFICATION (07/31/2021 8:45 PM CDT) ABO Rh O POS 07/31/2021 9:2 5 PM CDT [facility] Blood Bank BLOOD SPECIMEN / Unknown Lab Venipuncture / Unknown 07/31/2021 8:45 PM CDT 07/31/2021 8:52 PM CDT Vlad Saldana MD LAB - BLOOD BANK ORD ERABLES [facility] [address] [place] [address], [facility] [phone] * XR HUMERUS LEFT 2VW OR MORE (07/31/2021 7:47 PM CDT) Anatomical Region Laterality Modality Upper Extremity Radiographic Ophelia ging 07/31/2021 8:13 PM CDT Impressions 08/01/2021 11:04 AM CDT IMPRESSION: No acute fracture or dislocation identified. Report dictated by Seven Candelario DO (residential finish carpenter) I, Dr. JELANI MAC have personally reviewed and interpreted this examination/study. This report was electronically signed by JELANI MAC on 08/01/2021 11:04 AM . Narrative 08/01/2021 11:04 AM CDT EXAMINATION: XR HUMERUS LEFT 2VW OR MORE HISTORY: T14.90XA: Trauma COMPARISON: No prior study is available for comparison. FINDINGS: The osseous structures are intact without acute fracture. The glenohumeral and acromioclavicular joints are in anatomic alignment. Procedure Note Jelani Mac DO - 08/01/2021 EXAMINATION: XR HUMERUS LEFT 2VW OR MORE HISTORY: T14.90XA: Trauma COMPARISON: No prior study is available for comparison. FINDINGS: The osseous structures are intact without acute fracture. Theglenohumeral and acromioclavicular joints are in anatomic alignment. IMPRESSION: No acute fracture or dislocation identified. Report dictated by Seven Candelario DO (residential finish carpenter) I, Dr. JELANI MAC have personally reviewed and interpreted this examination/study. This report was electronically signed by JELANI MAC on 08/01/2021 11:04 AM . Vlad Saldana MD DIAGNOSTIC IMAGING O RDERABLES * CT CERVICAL SPINE WO CONTRAST - C-Spine Trauma, Spine fracture (07/31/2021 6:35 PM CDT) Anatomical Region Laterality Modality Spine Computed Tomogra phy 07/31/2021 6:43 PM CDT Impressions 08/01/2021 10:47 AM CDT IMPRESSION: 1.No acute intracranial abnormality. 2.No cervical spine fracture. Report dictated by Seven Candelario DO (residential finish carpenter) Dr. BROOKE Eng M.D. have personally reviewed and interpreted this examination/study. This report was electronically signed by BROOKE MCGREGOR M.D. on 08/01/2021 10:47 AM . Narrative 08/01/2021 10:47 AM CDT EXAMINATION: Computed tomography (CT) of the head without intravenous contrast CT of the cervical spine without intravenous contrast HISTORY: Trauma TECHNIQUE: CT of the head and cervical spine was performed without contrast according to standard protocol. COMPARISON: No prior study is available for comparison at the time of this dictation. FINDINGS: Head: The brain parenchyma is unremarkable. There is no acute hemorrhage. There is no hydrocephalus, midline shift or extra-axial fluid collection. The paranasal sinuses and tympanomastoid cavities are aerated. The orbits are unremarkable. There is no skull fracture. Cervical spine: There is no fracture. The prevertebral soft tissues are within normal limits. Straightening of the cervical spine is noted without subluxation. There are no aggressive appearing lytic or sclerotic lesions. Minor degenerative changes are seen. There is no spinal canal or foraminal stenosis. Procedure Note Brooke Mcgregor MD - 08/01/2021 EXAMINATION: Computed tomography (CT) of the head without intravenous contrast CT of the cervical spine without intravenous contrast HISTORY: Trauma TECHNIQUE: CT of the head and cervical spine was performed without contrast according to standard protocol. COMPARISON: No prior study is available for comparison at the time ofthis dictation. FINDINGS: Head: The brain parenchyma is unremarkable. There is no acute hemorrhage.There is no hydrocephalus, midline shift or extra-axial fluid collection. The paranasal sinuses and tympanomastoid cavities are aerated. The orbitsare unremarkable. There is no skull fracture. Cervical spine: There is no fracture. The prevertebral soft tissues are within normal limits. Straightening of the cervical spine is noted without subluxation. There are no aggressive appearing lytic or sclerotic lesions. Minordegenerative changes are seen. There is no spinal canal or foraminal stenosis. IMPRESSION: 1.No acute intracranial abnormality. 2.No cervical spine fracture. Report dictated by Seven Candelario DO (residential finish carpenter) Dr. BROOKE Eng M.D. have personally reviewed and interpreted this examination/study. This report was electronically signed by BROOKE MCGREGOR M.D. on 08/01/2021 10:47 AM . Binh Cabrera MD CT ORDERABLES * CT CHEST WO CONTRAST (07/31/2021 6:35 PM CDT) Anatomical Region Laterality Modality Chest Computed Tomogra phy 07/31/2021 6:51 PM CDT Impressions 08/01/2021 10:44 AM CDT Impression: 1.No acute process is identified in the thorax. 2. There is a nonobstructive left renal calculus. Report drafted by Iron Cornejo (resident) Dr. WALTER Eng MD, [facility] have personally reviewed and interpreted this examination/study. This report was electronically signed by WALTER CESPEDES MD, [facility] on 08/01/2021 10:44 AM . Narrative 08/01/2021 10:44 AM CDT Procedure Information DATE: 07/31/2021 6:37 PM EXAMINATION: Computed tomography (CT) of the chest without contrast TECHNIQUE: CT of the chest was performed without contrast according to standard protocol. Clinical Information HISTORY: T14.90XA: Trauma COMPARISON: None. Findings Evaluation of visceral and vascular structures is degraded due to lack of intravenous contrast administration. Lines/Tubes: None. Lower neck and axillae: Normal. Mediastinum and Venessa: No enlarged lymph nodes are present Heart and Pericardium: The cardiac chambers are normal in size. No pericardial fluid or thickening is present. Lung Parenchyma, Airways, and Pleural Spaces: No pulmonary parenchymal or airway process is present. There is no pleural effusion or pneumothorax. Bones and Soft Tissue: The visible osseous structures are intact. Upper Abdomen: There is a nonobstructive left renal calculus. Procedure Note Walter Cespedes MD - 08/01/2021 Procedure Information DATE: 07/31/2021 6:37 PM EXAMINATION: Computed tomography (CT) of the chest without contrast TECHNIQUE: CT of the chest was performed without contrast according to standard protocol. Clinical Information HISTORY: T14.90XA: Trauma COMPARISON: None. Findings Evaluation of visceral and vascular structures is degraded due to lackof intravenous contrast administration. Lines/Tubes: None. Lower neck and axillae: Normal. Mediastinum and Venessa: No enlarged lymph nodes are present Heart and Pericardium: The cardiac chambers are normal in size. No pericardial fluid or thickening is present. Lung Parenchyma, Airways, and Pleural Spaces: No pulmonary parenchymal or airway process is present. There is no pleural effusion or pneumothorax. Bones and Soft Tissue: The visible osseous structures are intact. Upper Abdomen: There is a nonobstructive left renal calculus. Impression: 1.No acute process is identified in the thorax. 2. There is a nonobstructive left renal calculus. Report drafted by Iron Cornejo (resident) Dr. WALTER Eng MD, FRCR have personally reviewedand interpreted this examination/study. This report was electronically signed by WALTER CESPEDES MD, FRCR on 08/01/2021 10:44 AM . Binh Cabrera MD CT ORDERABLES * CT HEAD WO CONTRAST - Head Trauma, CSF leak, mental status changes (07/31/2021 6:35 PM CDT) Anatomical Region Laterality Modality Head Computed Tomogra phy 07/31/2021 6:43 PM CDT Impressions 08/01/2021 10:47 AM CDT IMPRESSION: 1.No acute intracranial abnormality. 2.No cervical spine fracture. Report dictated by Seven Candelario DO (residential finish carpenter) Dr. BROOKE Eng M.D. have personally reviewed and interpreted this examination/study. This report was electronically signed by BROOKE MCGREGOR M.D. on 08/01/2021 10:47 AM . Narrative 08/01/2021 10:47 AM CDT EXAMINATION: Computed tomography (CT) of the head without intravenous contrast CT of the cervical spine without intravenous contrast HISTORY: Trauma TECHNIQUE: CT of the head and cervical spine was performed without contrast according to standard protocol. COMPARISON: No prior study is available for comparison at the time of this dictation. FINDINGS: Head: The brain parenchyma is unremarkable. There is no acute hemorrhage. There is no hydrocephalus, midline shift or extra-axial fluid collection. The paranasal sinuses and tympanomastoid cavities are aerated. The orbits are unremarkable. There is no skull fracture. Cervical spine: There is no fracture. The prevertebral soft tissues are within normal limits. Straightening of the cervical spine is noted without subluxation. There are no aggressive appearing lytic or sclerotic lesions. Minor degenerative changes are seen. There is no spinal canal or foraminal stenosis. Procedure Note Brooke Mcgregor MD - 08/01/2021 EXAMINATION: Computed tomography (CT) of the head without intravenous contrast CT of the cervical spine without intravenous contrast HISTORY: Trauma TECHNIQUE: CT of the head and cervical spine was performed without contrast according to standard protocol. COMPARISON: No prior study is available for comparison at the time ofthis dictation. FINDINGS: Head: The brain parenchyma is unremarkable. There is no acute hemorrhage.There is no hydrocephalus, midline shift or extra-axial fluid collection. The paranasal sinuses and tympanomastoid cavities are aerated. The orbitsare unremarkable. There is no skull fracture. Cervical spine: There is no fracture. The prevertebral soft tissues are within normal limits. Straightening of the cervical spine is noted without subluxation. There are no aggressive appearing lytic or sclerotic lesions. Minordegenerative changes are seen. There is no spinal canal or foraminal stenosis. IMPRESSION: 1.No acute intracranial abnormality. 2.No cervical spine fracture. Report dictated by Seven Candelario DO (residential finish carpenter) I, Dr. BROOKE MCGREGOR M.D. have personally reviewed and interpreted this examination/study. This report was electronically signed by BROOKE MCGREGOR M.D. on 08/01/2021 10:47 AM . Binh Cabrera MD CT ORDERABLES * EKG 12-LEAD (07/31/2021 6:34 PM CDT) Ventricular Rate 95 BPM [facility] Atrial Rate 95 BPM [facility] P-R Interval 144 ms [facility] QRS Duration ms 82 ms [facility] Q-T Interval ms 330 ms [facility] QTC Calculation (Bezet) 414 ms [facility] Calculated P Poplar 34 degrees SL MUSE Calculated R Poplar 55 degrees SL MUSE Calculated T Poplar 38 degrees [facility] Interpretation EKG NORMAL SINUS RHYTHM NORMAL ECG NO PREVIOUS ECGS AVAILABLE Confirmed by David Encinas ([id number]) on 08/02/2021 6:11:33 AM [facility] 07/31/2021 6:34 PM CDT 08/02/2021 6:11 AM CDT Binh Cabrera MD ECG ORDERABLES [facility] * TEG 6 GLOBAL HEMOSTASIS W/ LYSIS (07/31/2021 6:30 PM CDT) Citrated Kaolin R (Reaction Time) 6.4 4.6 - 9.1 min 07/31/2021 8:39 PM CDT [facility] Citrated Kaolin LY30 (Lysis) 1.9 0.0 - 2.6 % 07/31/2021 8:39 PM CDT [facility] Citrated RapidTEG MA (Max Amplitude) 52.5 52.0 - 70.0 mm 07/31/2021 8:39 PM CDT [facility] Citrated Functional Fibrinogen MA (Max Amplitude) 16.4 15.0 - 32.0 mm 07/31/2021 8:39 PM CDT [facility] Blood BLOOD SPECIMEN / Unknown Venipuncture / Unknown 07/31/2021 6:30 PM CDT 07/31/2021 6:39 PM CDT Binh Cabrera MD LAB - HEMATOLOGY OR DERABLES Performing Organization Address City/[facility]/ZIP Co de Phone Number [facility] [address] [place] [address], [facility] [phone] * (ABNORMAL) TEG 6S PLATELET MAPPING (07/31/2021 6:30 PM CDT) TEGPLM (Max Amplitude) Koalin 46(L) 53 - 68 mm 07/31/2021 7:42 PM CDT [facility] TEGPLM (Max Amplitude) ACTF 5 2 - 19 mm 07/31/2021 7:42 PM CDT [facility] TEGPLM (Max Amplitude) ADP 25(L) 45 - 69 mm 07/31/2021 7:42 PM CDT [facility] TEGPLM (Max Amplitude) AA 33(L) 51 - 71 mm 07/31/2021 7:42 PM CDT [facility] TEGPLM %Inhibition ADP 50(H) 0 - 17 % 07/31/2021 7:42 PM CDT [facility] TEGPLM %Inhibition AA 32(H) 0 - 11 % 07/31/2021 7:42 PM T [facility] TEGPLM %Aggregation ADP 50(L) 83 - 100 % 07/31/2021 7:42 PM T [facility] TEGPLM % Aggregation AA 68(L) 89 - 100 % 07/31/2021 7:42 PM T [facility] Blood BLOOD SPECIMEN / Unknown Venipuncture / Unknown 07/31/2021 6:30 PM CDT 07/31/2021 6:39 PM CDT Binh Cabrera MD LAB - HEMATOLOGY OR DERABLES Performing Organization Address City/[facility]/ZIP Co de Phone Number [facility] [address] [place] [address], [place] [phone] * PTT [facility] (07/31/2021 6:30 PM CDT) Pathologist [facility] [place] APTT 29.3 23.0 - 38.4 Seconds 07/31/2021 6:52 PM CDT [facility] Comment:Suggested therapeuti c range for full dose I.V. unfractionated heparin therapy for venous thromboembolism is 71 to 109 seconds. Blood BLOOD SPECIMEN / Unknown Venipuncture / Unknown 07/31/2021 6:30 PM CDT 07/31/2021 6:39 PM CDT Binh Cabrera MD LAB - COAGULATION O JAMES Performing Organization Address City/[facility]/ZIP Co de Phone Number [address] [address], [facility] [phone] * PT-INR [facility] (07/31/2021 6:30 PM CDT) [facility] PT 13.4 12.1 - 14.8 Seconds 07/31/2021 6:52 PM CDT [facility] INR 1.0 See Comment 07/31/2021 6:52 PM CDT [facility] Comment:The suggested therap eutic range for standard coumadin (warfarin) therapy is an INR of 2.0-3.0. For high-risk patients (Mechanical Mitral Valve Prosthesis, etc.), the suggested prophylactic therapeutic range is an INR of 2.5-3.5. Blood BLOOD SPECIMEN / Unknown Venipuncture / Unknown 07/31/2021 6:30 PM CDT 07/31/2021 6:39 PM CDT Binh Cabrera MD LAB - COAGULATION O JAMES [address] [address], [facility] [phone] * TYPE + SCREEN PANEL (07/31/2021 6:30 PM CDT) Pathologist [facility] Antibody Screen NEG 7:29 PM CDT [facility] ABO Rh O POS 07/31/2021 7:29 PM CDT [facility] Blood Bank BLOOD SPECIMEN / Unknown Venipuncture / Unknown 07/31/2021 6:30 PM CDT 07/31/2021 6:43 PM CDT Binh Cabrera MD LAB - BLOOD BANK OR DERABLES [facility] [address] [place] [address], [facility] [phone] * CBC W AUTO DIFFERENTIAL (07/31/2021 6:30 PM CDT) WBC 5.0 3.5 - 10.5 10 3/uL 07/31/2021 6:43 PM [facility] RBC 4.18 3.80 - 5.20 10 6/uL 07/31/2021 6:43 PM [facility] Hemoglobin 13.4 12.0 - 15.6 g/dL 07/31/2021 6:43 PM [facility] Hematocrit 38.9 35.0 - 45.0 % 07/31/2021 6:43 PM [facility] MCV 93.1 80.7 - 98.3 fL 07/31/2021 6:43 PM [facility] MCH 32.1 26.7 - 34.0 pg 07/31/2021 6:43 PM [facility] MCHC 34.4 30.8 - 35.9 g/dL 07/31/2021 6:43 PM [facility] Platelet Count 233 150 - 400 10 3/uL 07/31/2021 6:43 PM [facility] RDW-SD 42.4 36.0 - 50.0 fL 07/31/2021 6:43 PM [facility] RDW-CV 12.3 11.2 - 14.8 % 07/31/2021 6:43 PM [facility] MPV 10.5 9.4 - 12.9 fL 07/31/2021 6:43 PM [facility] nRBC Absolute 0.00 0 10 3/uL 07/31/2021 6:43 PM [facility] nRBC Auto 0.0 0 /100 WBC 07/31/2021 6:43 PM [facility] Neutrophils % 56.2 35.0 - 70.0 % 07/31/2021 6:43 PM [facility] Lymphocytes % 34.4 20.0 - 43.0 % 07/31/2021 6:43 PM [facility] Monocytes % 7.2 5.0 - 13.0 % 07/31/2021 6:43 PM [facility] Eosinophils % 1.2 0.0 - 6.0 % 07/31/2021 6:43 PM [facility] Basophil % 0.8 0.0 - 2.0 % 07/31/2021 6:43 PM [facility] Neutrophils Absolute 2.8 1.6 - 7.0 10 3/uL 07/31/2021 6:43 PM [facility] Lymphocyte Absolute 1.7 1.1 - 3.9 10 3/uL 07/31/2021 6:43 PM [facility] Monocytes Absolute 0.36 0.26 - 1.07 10 3/uL 07/31/2021 6:43 PM [facility] Eosinophils Absolute 0.06 0.00 - 0.47 10 3/uL 07/31/2021 6:43 PM [facility] Basophils Absolute 0.04 0.00 - 0.08 10 3/uL 07/31/2021 6:43 PM [facility] Immature Granulocytes % 0.2 0.0 - 1.0 % 07/31/2021 6:43 PM [facility] Immature Granulocytes Absolute 0.01 07/31/2021 6:43 PM [facility] Blood BLOOD SPECIMEN / Unknown Venipuncture / Unknown 07/31/2021 6:30 PM CDT 07/31/2021 6:35 PM [facility] [place]NOTE 2] Binh Cabrera MD LAB - HEMATOLOGY OR DERABLES Performing Organization Address [facility]/State/ZIP Co de Phone Number [facility] [address] [place] [phone], [facility] [phone] * (ABNORMAL) BASIC METABOLIC PANEL (CALCIUM TOTAL) (07/31/2021 6:30 PM CDT) [facility] BUN 8 7 - 26 mg/dL 07/31/2021 7:07 PM [facility] Creatinine 0.72 0.56 - 0.96 mg/dL 07/31/2021 7:07 PM [facility] Sodium 141 136 - 145 mmol/L 07/31/2021 7:07 PM [facility] Potassium 3.2(L) 3.5 - 4.5 mmol/L 07/31/2021 7:07 PM [facility] Chloride 107 98 - 107 mmol/L 07/31/2021 7:07 PM [facility] CO2 25 22 - 29 mmol/L 07/31/2021 7:07 PM [facility] Glucose 68(L) 70 - 115 mg/dL 07/31/2021 7:07 PM [facility] Calcium 9.3 8.4 - 10.2 mg/dL 07/31/2021 7:07 PM [facility] Anion Gap 12 8 - 18 07/31/2021 7:07 PM [facility] BUN/Creatinine Ratio 11 7 - 23 07/31/2021 7:07 PM [facility] Osmolality Calculated 289 270 - 300 mOsm/kg 07/31/2021 7:07 PM [facility] eGFR by CKD-EPI >90 >=90 mL/min/1.7 3 m2 07/31/2021 7:07 PM [facility] Blood BLOOD SPECIMEN / Unknown Venipuncture / Unknown 07/31/2021 6:30 PM CDT 07/31/2021 6:36 PM CDT Binh Cabrera MD LAB - CHEMISTRY ORD ERABLES [facility] [address] [place] [address], [facility] [phone] * HCG BETA BLOOD QUANTITATIVE (07/31/2021 6:30 PM CDT) [facility] Beta-hCG Total Quantitative <3 <5 mIU/mL 07/31/2021 7:13 PM CDT [facility] Comment: This assay is cleared for use in the early detection of only. It is not approved for any other uses such as tumor marker screening, tumor marker monitoring, etc. and should not be used for any other purposes. HCG Numeric Result Interpretation: Non- Females: < 5 mIU/mL Post-Menopausal Females: < 7 mIU/mL Blood BLOOD SPECIMEN / Unknown Venipuncture / Unknown 07/31/2021 6:30 PM CDT 07/31/2021 6:36 PM CDT Binh Cabrera MD LAB - CHEMISTRY ORD ERABLES Performing Organization Address City/[facility]/ZIP Co de Phone Number [address] [address], [facility] [phone] * LIPASE BLOOD (07/31/2021 6:30 PM CDT) Lipase 31 8 - 78 U/L 07/31/2021 7:49 PM CDT [facility] Blood BLOOD SPECIMEN / Unknown Venipuncture / Unknown 07/31/2021 6:30 PM CDT 07/31/2021 6:36 PM CDT Binh Cabrera MD LAB - CHEMISTRY ORD ERABLES Performing Organization Address [facility]/ZIP Co de Phone Number [address] [address], [place] [phone] * CK BLOOD (07/31/2021 6:30 PM CDT) CK Total 162 30 - 200 U/L 07/31/2021 7:07 PM CDT [facility] Blood BLOOD SPECIMEN / Unknown Venipuncture / Unknown 07/31/2021 6:30 PM CDT 07/31/2021 6:36 PM CDT Binh Cabrera MD LAB - CHEMISTRY ORD ERABLES [address] [place] [address], [facility] [phone] * AMYLASE BLOOD (07/31/2021 6:30 PM CDT) Amylase 86 25 - 125 U/L 07/31/2021 7:07 PM CDT [facility] Blood BLOOD SPECIMEN / Unknown Venipuncture / Unknown 07/31/2021 6:30 PM CDT 07/31/2021 6:36 PM CDT Binh Cabrera MD LAB - CHEMISTRY ORD ERABLES [address] [address], [facility] [phone] * (ABNORMAL) ALCOHOL ETHYL BLOOD (07/31/2021 6:30 PM CDT) Ethanol (mg/dL) 69(H) <10 mg/dL 7:07 PM CDT [facility] Ethanol Calculated (g/dL) 0.069(H) <0.010 g/dL 07/31/2021 7:07 PM CDT [facility] Blood BLOOD SPECIMEN / Unknown Venipuncture / Unknown 07/31/2021 6:30 PM CDT 07/31/2021 6:36 PM CDT Narrative [facility] - 07/31/2021 7:07 PM CDT Ethanol Interp <10: None Detected. Depression of STUDIO OPERATIONS ENGINEER IN CHARGE: >100 mg/dl Potentially Critical: >250 mg/dl Potentially Fatal >400 mg/dl Ethanol in the patient's blood will contribute to the osmolar gap. Ethanol's contribution to the osmolar gap can be estimated by dividing the concentration of ethanol in mg/dL by 4.6. This test is for clinical use only and does not equal a ARMIDA for legal purposes. Binh Cabrera MD LAB - CHEMISTRY ORD ERABLES Performing Organization Address City/[facility]/ZIP Co de Phone Number [address] [address], [facility] [phone] * XR PELVIS 1 OR 2VW (07/31/2021 6:25 PM CDT) Anatomical Region Laterality Modality Pelvis Radiographic Ophelia ging 07/31/2021 6:51 PM CDT Impressions 08/01/2021 11:01 AM CDT IMPRESSION: No acute fracture identified. Report dictated by Seven Candelario DO (residential finish carpenter). Dr. JELANI Eng have personally reviewed and interpreted this examination/study. This report was electronically signed by JELANI MAC on 08/01/2021 11:01 AM . Narrative 08/01/2021 11:01 AM CDT EXAMINATION: XR PELVIS 1 OR 2VW HISTORY: Trauma Fracture suspected COMPARISON: No prior study is available for comparison. FINDINGS: No acute fracture is identified. The femoral heads appear well-seated within their respective acetabula. The pubic symphysis is intact. The sacroiliac joints are normal. Procedure Note Jelani Mac DO - 08/01/2021 EXAMINATION: XR PELVIS 1 OR 2VW HISTORY: Trauma Fracture suspected COMPARISON: No prior study is available for comparison. FINDINGS: No acute fracture is identified. The femoral heads appear well-seated within their respective acetabula. The pubic symphysis is intact. The sacroiliac joints are normal. IMPRESSION: No acute fracture identified. Report dictated by Seven Candelario DO (residential finish carpenter). Dr. JELANI Eng have personally reviewed and interpreted this examination/study. This report was electronically signed by JELANI MAC on 08/01/2021 11:01 AM . Binh Cabrera MD DIAGNOSTIC IMAGING ORDERABLES * XR CHEST 1VW PORTABLE (07/31/2021 6:25 PM CDT) Anatomical Region Laterality Modality Chest Radiographic Ophelia ging 07/31/2021 6:52 PM CDT Impressions 08/01/2021 11:00 AM CDT IMPRESSION: No acute pulmonary process. Report dictated by Seven Candelario DO (residential finish carpenter). Dr. JELANI Eng have personally reviewed and interpreted this examination/study. This report was electronically signed by JELANI MAC on 08/01/2021 11:00 AM . Narrative 08/01/2021 11:00 AM CDT EXAMINATION: XR CHEST 1VW PORTABLE, 07/31/2021 6:25 PM HISTORY: Trauma COMPARISON: No prior study is available for comparison. FINDINGS: There is no focal consolidation, pleural effusion, or pneumothorax. The cardiomediastinal silhouette is normal. Procedure Note Jelani Mac DO - 08/01/2021 EXAMINATION: XR CHEST 1VW PORTABLE, 07/31/2021 6:25 PM HISTORY: Trauma COMPARISON: No prior study is available for comparison. FINDINGS: There is no focal consolidation, pleural effusion, or pneumothorax. The cardiomediastinal silhouette is normal. IMPRESSION: No acute pulmonary process. Report dictated by Seven Candelario DO (residential finish carpenter). I, Dr. JELANI MAC have personally reviewed and interpreted this examination/study. This report was electronically signed by JELANI MAC on 08/01/2021 11:00 AM . Binh Cabrera MD DIAGNOSTIC IMAGING ORDERABLES Care Teams Sales Architect Relationship Specialty Start Date End Date Reid, LENNOX Abdul-KAMAR [address] [place] [address] PCP - General 07/06/21
--- OUTSIDE RECORDS SUMMARY | 2024-05-05 17:39 | XMS_ITS | Continuity of Care Document ---
Author Organization [facility] Address [address] [place] [address] Phone Care Team Providers Care Consumer Banker Name Role Phone Unavailable Unavailable Unavailable Advance Directives Directive Yes / No Effective Date File Name No Information Encounters Encounter Description Practice Location Reason(s) For Visit Diagnoses Date Provider Providers Copied on Encounter [facility], [address] [facility], [place], [place], [id number], [place] tel:[phone] [facility] No Information No Information Referring Provider: EDDI Stringer, [address], [place], [address]. tel:[phone] Family History Family Member Type Diagnosis Age At Onset No Information Payers Payer name Insurance type Covered libertarian ID Authoriza vamshi(s) [employer] [place] PPO [id number] [facility] [id number] Social History Type Description Quantity Date Captured Comments Sex Female Smoking Status No Information Chief Complaint And Reason For Visit No Information History Of Present Illness Encounter Date Complaint History Of Prese nt Illness No Information Instructions Date Instruction Additional Infor mation No Information Assessments Type Assessment Date No Information
--- OUTSIDE RECORDS SUMMARY | 2024-05-05 17:39 | XMS_ITS | Clinical Summary ---
Author Organization [facility] Address [address] [place] [address] Care Team Providers Care Marking Room Supervisor Name Role Phone Chantell Reid APRNMARTELL Primary Care Provider [phone] Source Comments [facility],non-owned Affiliates and Associated Physician Practices is amultiple site organization consisting of ambulatory clinics and hospital sitesin [place], [place], [place] and [place]. This disclosure is being madepursuant to the Care Everywhere program and may not contain all information available regarding this patient. Last updated 17.[facility] Allergies Active Allergy Reactions Criticality Noted Date [...] 07/31/2021 6:08 PM CDT Plan of Treatment Health Maintenance Due Date Last Done Comments PAP SMEAR 1993 HIV SCREENING 2008 HEPATITIS C SCREENING 04/02/2011 HEPATITIS B VACCINE (1 of 3 - 19+ 3-dose series) 2012 COVID-19 VACCINE (2 - 2023-2 5 season) 2023 07/09/2020 INFLUENZA VACCINE (#1) 2023 DEPRESSION SCREENING 03/14/2024 DTAP/TDAP/TD VACCINES (2 - T d or Tdap) 08/01/2031 07/31/2021 ZOSTER VACCINE (1 of 2) 2043 HIB VACCINE Aged Out No longer eligi ble based on patient's age to complete this topic HPV VACCINE Aged Out No longer eligi ble based on patient's age to complete this topic MENINGOCOCCAL (Group B) VACCINE Aged Out No longer eligible based on patient's age to complete this topic MENINGOCOCCAL VACCINE Aged Out No galindo nain eligible based on patient's age to complete this topic PNEUMOCOCCAL VACCINE Aged Out No long er eligible based on patient's age to complete this topic Care Teams Marking Room Supervisor Relationship Specialty Start Date End Date Chantell Reid APRN-ELECTRICAL DRAFTER [address] [place] [address] PCP - General 07/06/21
[2024-05-05 17:45] VITALS: BP 128/74; PULSE 86; RESP 16; TEMP 36.3; O2SAT 100
--- OUTSIDE RECORDS SUMMARY | 2024-05-05 20:17 | XMS_ITS | Clinical Summary ---
Author Organization [facility] [employer] Address [address] [facility] [place] [address] Care Team Providers Care Grinder Set Up Operator Surface Name Role Phone Chantell Reid APRNMARTELL Primary Care Provider [phone] Source Comments [facility],non-owned Affiliates and Associated Physician Practices is amultiple site organization consisting of ambulatory clinics and hospital sitesin [place], [place], [place] and [place]. This disclosure is being madepursuant to the Care Everywhere program and may not contain all information available regarding this patient. Last updated 17.[facility] [employer] Allergies Active Allergy Reactions Criticality Noted Date [...] age to complete this topic Care Teams Grinder Set Up Operator Surface Relationship Specialty Start Date End Date Chantell eRid APRN-FLUX MIXER [address] [place] [address] PCP - General 07/06/21
--- OUTSIDE RECORDS SUMMARY | 2024-05-05 20:17 | XMS_ITS | Clinical Summary ---
Author Organization [facility] Address [address] [place] [address] Care Team Providers Care Varnisher Apprentice Name Role Phone ReidCalvinChantellnikunj MORENO Primary Care Provider [phone] Allergies Active Allergy Reactions Criticality Noted Date [...] Insurance [employer] Care Teams Varnisher Apprentice Relationship Specialty Start Date End Date Jeanette, JOSH Abdul [address] [place] [address] PCP - General NURSE PRACTITIONER 10/09/17
--- OUTSIDE RECORDS SUMMARY | 2024-05-05 20:17 | XMS_ITS | Clinical Summary ---
Author Organization [facility] Address [address] [place] [address] Phone Care Team Providers Care Service Car Driver Name Role Phone Unavailable Primary Care Provider [...] on file Legal Sex Female 4:47 PM SUPERVISOR POULTRY PROCESSING Gender Identity Not on file Sexual Orientation Not on file Last Filed Vital Signs Vital Sign Reading Time Taken Comments Blood Pressure - - Pulse 84 03/28/2017 10:33 AM SUPERVISOR POULTRY PROCESSING Temperature - - Respiratory Rate 18 03/28/2017 10:33 AM SUPERVISOR POULTRY PROCESSING Oxygen Saturation 97% 03/28/2017 10:33 AM SUPERVISOR POULTRY PROCESSING Inhaled Oxygen Concentration - - Weight 53.1 kg (117 lb) 03/28/2017 10:33 AM SUPERVISOR POULTRY PROCESSING Height 160 cm (5' 3 ) 03/28/2017 10:33 AM SUPERVISOR POULTRY PROCESSING Body Mass Index 20.73 03/28/2017 10:33 AM SUPERVISOR POULTRY PROCESSING Plan of Treatment Health Maintenance Due Date Last Done Comments DTAP/TDAP/TD VACCINES (1 - Tdap) 2012 HEPATITIS B VACCINES (1 of 3 - 19+ 3-dose series) 2012 CERVICAL CANCER SCREENING 2023 INFLUENZA VACCINE (#1) 2023 Preventative Visit- Commercial 03/14/2024 HPV VACCINES Aged Out No longer eligi ble based on patient's age to complete this topic Insurance BLUE [employer]/TRUE BLUE PPO
--- OUTSIDE RECORDS SUMMARY | 2024-05-05 20:17 | XMS_ITS | Continuity of Care Document ---
Author Organization [facility] Address [address] [place] [address] [place] [address] Phone Care Team Providers Care Ballpoint Pen Cartridge Tester Name Role Phone Cassidy OD, Vlad Unavailable Unavailable Procedures Procedure Date CL Replacement - Vistakon Disp W/BW Soft Tax - Medical Advance Directives Directive Yes / No Effective Date File Name No Information Encounters Encounter Description Practice Location Reason(s) For Visit Diagnoses Date Provider Providers Copied on Encounter [facility], [address] [place] [address] [address], [place], [place], [id number], tel:[phone] [facility] No Information 6-[address] 7 Cassidy OD Vlad. [address] , [address], [place], [address], [place]. tel:[phone] Family History Family Member Type Diagnosis Age At Onset No Information Payers Payer name Insurance type Covered libertarian ID Authoriza tion(s) No Information Social History [...]
--- OUTSIDE RECORDS SUMMARY | 2024-05-05 20:17 | XMS_ITS | Referral Summary ---
Author Organization [facility] Address [address] [place] [address] Care Team Providers Care Recreation Facilities Supervisor Name Role Phone Jeanette Chantellnikunj Branch NP Primary Care Provider Allergies Active Allergy Reactions Criticality Noted Date Comments Morphine Other Itching Low 05/29/2018 Unknown antiemetic, given at [facility] Promethazine Unknown 06/01/2018 Metoclopramide Anxiety Low 06/08/2018 Medications sertraline (ZOLOFT) 100 mg tablet Take 200 mg by mouth. Active cholecalciferol (VITAMIN D-3) 1,000 unit capsule Take by mouth. Active prenat vit 71-gemf-[id number]-om3, 6 35-5-1.2-400 mg capsule Take by mouth [...] on file Legal Sex Female 6:48 PM MEDICAL MANAGEMENT SPECIALIST Gender Identity Not on file Sexual Orientation Not on file Last Filed Vital Signs Vital Sign Reading Time Taken Comments Blood Pressure 124/79 03/15/2020 2:03 AM MEDICAL MANAGEMENT SPECIALIST Pulse 79 03/15/2020 2:03 AM MEDICAL MANAGEMENT SPECIALIST Temperature 36.9 C (98.5 F) 03/15/2020 1:32 AM MEDICAL MANAGEMENT SPECIALIST Respiratory Rate 16 03/15/2020 1:32 AM MEDICAL MANAGEMENT SPECIALIST Oxygen Saturation 99% 03/15/2020 1:32 AM MEDICAL MANAGEMENT SPECIALIST Inhaled Oxygen Concentration - - Weight 54.4 kg (120 lb) 03/15/2020 1:32 AM MEDICAL MANAGEMENT SPECIALIST Height 162.6 cm (5' 4 ) 03/15/2020 1:32 AM MEDICAL MANAGEMENT SPECIALIST Body Mass Index 20.6 03/15/2020 1:32 AM MEDICAL MANAGEMENT SPECIALIST Plan of Treatment Not on file Insurance IDPA [facility] HEALTH PLAN [employer] [place] [employer] [employer] ACCESS OOS [employer] OOS Care Teams Recreation Facilities Supervisor Relationship Specialty Start Date End Date Chantell Reid NP [address] [place] [address] PCP - General 11/22/17
--- OUTSIDE RECORDS SUMMARY | 2024-05-05 20:17 | XMS_ITS | Referral Summary ---
Author Organization [facility] Address [address] [facility] [place] [address] Care Team Providers Care Financial Compliance Officer Name Role Phone Chantell Reid APRN-WELLNESS COACH Primary Care Provider [phone] Source Comments [facility],non-owned Affiliates and Associated Physician Practices is amultiple site organization consisting of ambulatory clinics and hospital sitesin [place], [place], [place] and [place]. This disclosure is being madepursuant to the Care Everywhere program and may not contain all information available regarding this patient. Last updated 17.[facility] [employer] Allergies Active Allergy Reactions Criticality Noted Date [...] of Treatment Not on file Care Teams Financial Compliance Officer Relationship Specialty Start Date End Date Chantell Reid APRN-KAMAR [address] [place] [address] PCP - General 07/06/21
--- OUTSIDE RECORDS SUMMARY | 2024-05-05 20:17 | XMS_ITS | Continuity of Care Document ---
Author Organization [facility] Address [address] [place] [address] Phone Care Team Providers Care Logistics Technician Name Role Phone Unavailable Unavailable Unavailable Advance Directives Directive Yes / No Effective Date File Name No Information Encounters Encounter Description Practice Location Reason(s) For Visit Diagnoses Date Provider Providers Copied on Encounter [facility], [address] [facility], [place], [place], [id number], [place] tel:[phone] [facility] No Information No Information Referring Provider: EDDI Stringer, [address], [place], [address]. tel:[phone] Family History Family Member Type Diagnosis Age At Onset No Information Payers Payer name Insurance type Covered libertarian ID Authoriza vamshi(s) [employer] [place] PPO [id number] [facility] [id number] Social History Type Description Quantity Date Captured Comments Sex Female Smoking Status No Information Chief Complaint And Reason For Visit No Information History Of Present Illness Encounter Date Complaint History Of Prese nt Illness No Information Instructions Date Instruction Additional Infor mation No Information Assessments Type Assessment Date No Information
--- OUTSIDE RECORDS SUMMARY | 2024-05-05 20:17 | XMS_ITS | Clinical Summary ---
Author Organization [facility] Address [address] [place] [address] Care Team Providers Care Grill Cook Name Role Phone JeanetteCalvinChantellnikunj Branch NP Primary Care Provider [phone] Allergies Active Allergy Reactions Criticality Noted Date Comments Morphine Other Itching Low 05/29/2018 Unknown antiemetic, given at [facility] Promethazine Unknown 06/01/2018 Metoclopramide Anxiety Low 06/08/2018 Medications sertraline (ZOLOFT) 100 mg tablet Take 200 mg by mouth. Active cholecalciferol (VITAMIN D-3) 1,000 unit capsule Take by mouth. Active prenat vit 33-vqqj-rplxt-om3, 6 35-5-1.2-400 mg capsule Take by mouth [...] on file Legal Sex Female 6:48 PM SOFTWARE SYSTEMS ENGINEER Gender Identity Not on file Sexual Orientation Not on file Obstetrics History Para Term AB IAB SAB Ectopic Multiple Livin g Live Births 1 Date Outcome GA Total Labor Labor/2nd/3rd Weight Sex Type Anes PTL Latisha A1 A5 Name Clin Last Filed Vital Signs Vital Sign Reading Time Taken Comments Blood Pressure 124/79 03/15/2020 2:03 AM SOFTWARE SYSTEMS ENGINEER Pulse 79 03/15/2020 2:03 AM SOFTWARE SYSTEMS ENGINEER Temperature 36.9 C (98.5 F) 03/15/2020 1:32 AM SOFTWARE SYSTEMS ENGINEER Respiratory Rate 16 03/15/2020 1:32 AM SOFTWARE SYSTEMS ENGINEER Oxygen Saturation 99% 03/15/2020 1:32 AM SOFTWARE SYSTEMS ENGINEER Inhaled Oxygen Concentration - - Weight 54.4 kg (120 lb) 03/15/2020 1:32 AM SOFTWARE SYSTEMS ENGINEER Height 162.6 cm (5' 4 ) 03/15/2020 1:32 AM SOFTWARE SYSTEMS ENGINEER Body Mass Index 20.6 03/15/2020 1:32 AM SOFTWARE SYSTEMS ENGINEER Plan of Treatment Health Maintenance Due Date [...] age to complete this topic Insurance IDPA [facility] HE[facility]AN [place] [employer] [facility] Address: [address] [place] [address] IDPA BLUE ACCESS OOS [employer] ACCESS OOS Care Teams Grill Cook Relationship Specialty Start Date End Date Jeanette, Chantell Branch NP [address] [place] [address] PCP - General 11/22/17
--- OUTSIDE RECORDS SUMMARY | 2024-05-05 20:17 | XMS_ITS | Clinical Summary ---
Author Organization [facility] Address [address] [place] [address] Phone Care Team Providers Care Middle School Counselor Name Role Phone Chantell Reid KAMAR HIGH Primary Care Provider [phone] Allergies Active Allergy Reactions Criticality Noted Date [...] patient's age to complete this topic Insurance [place], [place] [id number] MEDICAID [facility] Care Teams Middle School Counselor Relationship Specialty Start Date End Date Chantell Reid APRN, KAMAR [address] [place] [address] PCP - General Family Medicine 08/12/17
--- OUTSIDE RECORDS SUMMARY | 2024-05-05 20:17 | XMS_ITS | Patient Health Summary ---
Author Organization [facility] Address [address] [place] [address] Care Team Providers Care Collections Agent Name Role Phone Chantell Reid LENNOX-RESEARCH DIETITIAN Primary Care Provider [phone] Note from [facility],non-owned Affiliates and Associated Physician Practices is amultiple site organization consisting of ambulatory clinics and hospital sitesin [place] and [place]. This disclosure is being madepursuant to the Care Everywhere program and may not contain all information available regarding this patient. Last updated 17.[facility] Allergies * Morphine(Dizziness) -Low Criticality * Promethazine(Itching) [...] : < 1000 ng/mL 07/31/2021 9:13 PM [facility] Barbiturates Screen Urine Negative Negative : < 200 ng/mL 07/31/2021 9:13 PM [facility] Benzodiazepine Screen Urine Positive(A) Negative : < 200 ng/mL 07/31/2021 9:13 PM [facility] Comment: Positive urine benzodiazepine screening results should be confirmed by another generally accepted non-immunological method such as gas chromatography or mass spectrometry. Opiates Urine Negative Negative : < 300 ng/mL 07/31/2021 9:13 PM [facility] Cocaine Metabolites Urine Negative Negative : < 300 ng/mL 07/31/2021 9:13 PM [facility] Phencyclidine Screen Urine Negative Negative : < 25 ng/ml 07/31/2021 9:13 PM [facility] Cannabinoids Screen Urine Negative Negative : <50 ng/mL 07/31/2021 9:13 PM [facility] Methadone Screen Urine Negative Negative : < 300 ng/mL 07/31/2021 9:13 PM [facility] Fentanyl Screen Urine Negative Negative : <1.0 ng/mL 07/31/2021 9:13 PM [facility] Urine URINE / Unknown Collection / Unknown 07/31/2021 8:47 PM CDT 07/31/2021 8:52 PM [facility] - 07/31/2021 9:[address] [facility] The Urine Toxicology Screening Panel does not screen for Propoxyphene, Meprobamate, Carisoprodol, Trazodone, trfz-dit-ispnjuh medications and/or volatiles (Acetone, Isopropanol, Methanol or Ethylene Glycol). Ethanol, Salicylate, Acetaminophen, Tricyclic Antidepressants and several therapeutic drugs may be individually assayed in serum or plasma specimen. Toxicology testing by the [facility] is an aid to medical diagnosis and treatment of patients. No documented chain of custody was maintained. Results are intended to be used for clinical purposes only. Binh Cabrera MD LAB - URINE CONSTRUCTION MANAGEMENT ASSISTANT RY ORDERABLES [facility] [address] [place] [address], [facility] [phone] * BLOOD TYPE VERIFICATION (07/31/2021 8:45 PM CDT) ABO Rh O POS 07/31/2021 9:2 5 PM CDT [facility] BLOOD BANK LAB Blood Bank BLOOD SPECIMEN / Unknown Lab Venipuncture / Unknown 07/31/2021 8:45 PM CDT 07/31/2021 8:52 PM CDT Vlad Saldana MD LAB - BLOOD BANK ORD ERABLES [facility] BLOOD BANK LAB [address] [place] [address], [facility] [phone] * XR HUMERUS LEFT 2VW OR MORE (07/31/2021 7:47 PM CDT) Anatomical Region Laterality Modality Upper Extremity Radiographic Ophelia ging 07/31/2021 8:13 PM CDT Impressions 08/01/2021 11:04 AM CDT IMPRESSION: No acute fracture or dislocation identified. Report dictated by Seven Candelario DO (residential door unit installer) I, Dr. JELANI MAC have personally reviewed [...] Report dictated by Seven Candelario DO (residential door unit installer) I, Dr. JELANI MAC have personally reviewed [...] Report dictated by Seven Candelario DO (residential door unit installer) Dr. BROOKE Eng M.D. have personally reviewed [...] Report dictated by Seven Candelario DO (residential door unit installer) Dr. BROOKE Eng M.D. have personally reviewed [...] Iron Cornejo (resident) Dr. WALTER Eng MD, [facility] have personally reviewed and interpreted this examination/study. This report was electronically signed by WALTER CESPEDES MD, [facility] on 08/01/2021 10:44 AM . Narrative [...] cervical spine fracture. Report dictated by Seven Canedlario DO (residential door unit installer) Dr. BROOKE Eng M.D. have personally reviewed [...] Report dictated by Seven Candelario DO (residential door unit installer) I, Dr. BROOKE MCGREGOR M.D. have personally reviewed and interpreted this examination/study. This report was electronically signed by BROOKE MCGREGOR M.D. on 08/01/2021 10:47 AM . Binh Cabrera MD CT ORDERABLES * EKG 12-LEAD (07/31/2021 6:34 PM CDT) Ventricular Rate 95 BPM [facility] MUSE Atrial Rate 95 BPM [facility] MUSE P-R Interval 144 ms [facility] MUSE QRS Duration ms 82 ms [facility] MUSE Q-T Interval ms 330 ms [facility] MUSE QTC Calculation (Bezet) 414 ms [facility] MUSE Calculated P [place] 34 degrees SL MUSE Calculated R [place] 55 degrees SL MUSE Calculated T [place] 38 degrees [facility] MUSE Interpretation EKG NORMAL SINUS RHYTHM NORMAL ECG NO PREVIOUS ECGS AVAILABLE Confirmed by David Encinas ([id number]) on 08/02/2021 6:11:33 AM [facility] MUSE 07/31/2021 6:34 PM CDT 08/02/2021 6:11 AM CDT Binh Cabrera MD ECG ORDERABLES [facility] MUSE * TEG 6 GLOBAL HEMOSTASIS W/ LYSIS (07/31/2021 6:30 PM CDT) Citrated Kaolin R (Reaction Time) 6.4 4.6 - 9.1 min 07/31/2021 8:39 PM CDT [facility] LABORATORY [facility] Citrated Kaolin LY30 (Lysis) 1.9 0.0 - 2.6 % 07/31/2021 8:39 PM CDT [facility] Citrated RapidTEG MA (Max Amplitude) 52.5 52.0 - 70.0 mm 07/31/2021 8:39 PM CDT [facility] Citrated Functional Fibrinogen MA (Max Amplitude) 16.4 15.0 - 32.0 mm 07/31/2021 8:39 PM CDT [facility] Blood BLOOD SPECIMEN / Unknown Venipuncture / Unknown 07/31/2021 6:30 PM CDT 07/31/2021 6:39 PM CDT Binh Cabrera MD LAB - HEMATOLOGY OR DERABLES Performing Organization Address City/[facility]/ZIP Co de Phone Number [facility] [address] [place] [address], [facility] [phone] * (ABNORMAL) TEG 6S PLATELET MAPPING (07/31/2021 6:30 PM CDT) TEGPLM (Max Amplitude) [place] 46(L) 53 - 68 mm 07/31/2021 7:42 PM CDT [facility] TEGPLM (Max Amplitude) ACTF 5 2 - 19 mm 07/31/2021 7:42 PM CDT [facility] TEGPLM (Max Amplitude) ADP 25(L) 45 - 69 mm 07/31/2021 7:42 PM CDT [facility] TEGPLM (Max Amplitude) AA 33(L) 51 - 71 mm 07/31/2021 7:42 PM CDT [facility] TEGPLM %Inhibition ADP 50(H) 0 - 17 % 07/31/2021 7:42 PM CDT [facility] TEGPLM %Inhibition AA 32(H) 0 - 11 % 07/31/2021 7:42 PM T [facility] TEGPLM %Aggregation ADP 50(L) 83 - 100 % 07/31/2021 7:42 PM T [facility] TEGPLM % Aggregation AA 68(L) 89 - 100 % 07/31/2021 7:42 PM T [facility] Blood BLOOD SPECIMEN / Unknown Venipuncture / Unknown 07/31/2021 6:30 PM CDT 07/31/2021 6:39 PM CDT Binh Cabrera MD LAB - HEMATOLOGY OR DERABLES Performing Organization Address City/[facility]/ZIP Co de Phone Number [facility] [address] [place] [address], [place] [phone] * PTT [facility] (07/31/2021 6:30 PM CDT) Pathologist [facility] APTT 29.3 23.0 - 38.4 Seconds 07/31/2021 6:52 PM CDT [facility] Comment:Suggested therapeuti c range for full dose I.V. unfractionated heparin therapy for venous thromboembolism is 71 to 109 seconds. Blood BLOOD SPECIMEN / Unknown Venipuncture / Unknown 07/31/2021 6:30 PM CDT 07/31/2021 6:39 PM CDT Binh Cabrera MD LAB - COAGULATION O JAMES Performing Organization Address City/[facility]/ZIP Co de Phone Number [address] [address], [facility] [phone] * PT-INR [facility] (07/31/2021 6:30 PM CDT) [facility] PT 13.4 12.1 - 14.8 Seconds 07/31/2021 6:52 PM CDT [facility] INR 1.0 See Comment 07/31/2021 6:52 PM CDT [facility] Comment:The suggested therap eutic range for standard coumadin (warfarin) therapy is an INR of 2.0-3.0. For high-risk patients (Mechanical Mitral Valve Prosthesis, etc.), the suggested prophylactic therapeutic range is an INR of 2.5-3.5. Blood BLOOD SPECIMEN / Unknown Venipuncture / Unknown 07/31/2021 6:30 PM CDT 07/31/2021 6:39 PM CDT Binh Cabrera MD LAB - COAGULATION O JAMES [address] [address], [facility] [phone] * TYPE + SCREEN PANEL (07/31/2021 6:30 PM CDT) Pathologist [facility] Antibody Screen NEG 7:29 PM CDT [facility] BLOOD BANK LAB ABO Rh O POS 07/31/2021 7:29 PM CDT [facility] BLOOD BANK LAB Blood Bank BLOOD SPECIMEN / Unknown Venipuncture / Unknown 07/31/2021 6:30 PM CDT 07/31/2021 6:43 PM CDT Binh Cabrera MD LAB - BLOOD BANK OR DERABLES [facility] BLOOD BANK LAB [address] [place] [address], [facility] [phone] * CBC W AUTO DIFFERENTIAL (07/31/2021 6:30 PM CDT) WBC 5.0 3.5 - 10.5 10 3/uL 07/31/2021 6:43 PM [facility] RBC 4.18 3.80 - 5.20 10 6/uL 07/31/2021 6:43 PM [facility] Hemoglobin 13.4 12.0 - 15.6 g/dL 07/31/2021 6:43 PM [facility] Hematocrit 38.9 35.0 - 45.0 % 07/31/2021 6:43 PM [facility] MCV 93.1 80.7 - 98.3 fL 07/31/2021 6:43 PM [facility] MCH 32.1 26.7 - 34.0 pg 07/31/2021 6:43 PM [facility] MCHC 34.4 30.8 - 35.9 g/dL 07/31/2021 6:43 PM [facility] Platelet Count 233 150 - 400 10 3/uL 07/31/2021 6:43 PM [facility] RDW-SD 42.4 36.0 - 50.0 fL 07/31/2021 6:43 PM [facility] RDW-CV 12.3 11.2 - 14.8 % 07/31/2021 6:43 PM [facility] MPV 10.5 9.4 - 12.9 fL 07/31/2021 6:43 PM [facility] nRBC Absolute 0.00 0 10 3/uL 07/31/2021 6:43 PM [facility] nRBC Auto 0.0 0 /100 WBC 07/31/2021 6:43 PM [facility] Neutrophils % 56.2 35.0 - 70.0 % 07/31/2021 6:43 PM [facility] Lymphocytes % 34.4 20.0 - 43.0 % 07/31/2021 6:43 PM [facility] Monocytes % 7.2 5.0 - 13.0 % 07/31/2021 6:43 PM [facility] Eosinophils % 1.2 0.0 - 6.0 % 07/31/2021 6:43 PM [facility] Basophil % 0.8 0.0 - 2.0 % 07/31/2021 6:43 PM [facility] Neutrophils Absolute 2.8 1.6 - 7.0 10 3/uL 07/31/2021 6:43 PM [facility] Lymphocyte Absolute 1.7 1.1 - 3.9 10 3/uL 07/31/2021 6:43 PM [facility] Monocytes Absolute 0.36 0.26 - 1.07 10 3/uL 07/31/2021 6:43 PM [facility] Eosinophils Absolute 0.06 0.00 - 0.47 10 3/uL 07/31/2021 6:43 PM [facility] Basophils Absolute 0.04 0.00 - 0.08 10 3/uL 07/31/2021 6:43 PM [facility] Immature Granulocytes % 0.2 0.0 - 1.0 % 07/31/2021 6:43 PM [facility] Immature Granulocytes Absolute 0.01 07/31/2021 6:43 PM [facility] Blood BLOOD SPECIMEN / Unknown Venipuncture / Unknown 07/31/2021 6:30 PM CDT 07/31/2021 6:[address] [facility] Binh Cabrera MD LAB - HEMATOLOGY OR DERABLES Performing Organization Address [facility]/State/ZIP Co de Phone Number [facility] [address] [place] [phone], [facility] [phone] * (ABNORMAL) BASIC METABOLIC PANEL (CALCIUM TOTAL) (07/31/2021 6:30 PM CDT) [facility] BUN 8 7 - 26 mg/dL 07/31/2021 7:07 PM [facility] Creatinine 0.72 0.56 - 0.96 mg/dL 07/31/2021 7:07 PM [facility] Sodium 141 136 - 145 mmol/L 07/31/2021 7:07 PM [facility] Potassium 3.2(L) 3.5 - 4.5 mmol/L 07/31/2021 7:07 PM [facility] Chloride 107 98 - 107 mmol/L 07/31/2021 7:07 PM [facility] CO2 25 22 - 29 mmol/L 07/31/2021 7:07 PM [facility] Glucose 68(L) 70 - 115 mg/dL 07/31/2021 7:07 PM [facility] Calcium 9.3 8.4 - 10.2 mg/dL 07/31/2021 7:07 PM [facility] Anion Gap 12 8 - 18 07/31/2021 7:07 PM [facility] BUN/Creatinine Ratio 11 7 - 23 07/31/2021 7:07 PM [facility] Osmolality Calculated 289 270 - 300 mOsm/kg 07/31/2021 7:07 PM [facility] eGFR by CKD-EPI >90 >=90 mL/min/1.7 3 m2 07/31/2021 7:07 PM [facility] Blood BLOOD SPECIMEN / Unknown Venipuncture / Unknown 07/31/2021 6:30 PM CDT 07/31/2021 6:36 PM CDT Binh Cabrera MD LAB - CHEMISTRY ORD ERABLES [facility] [address] [place] [address], [facility] [phone] * HCG BETA BLOOD QUANTITATIVE (07/31/2021 6:30 PM CDT) [facility] Beta-hCG Total Quantitative <3 <5 mIU/mL 07/31/2021 7:13 PM CDT [facility] Comment: This assay is cleared for [...] - CHEMISTRY ORD ERABLES Performing Organization Address City/[facility]/ZIP Co de Phone Number [address] [address], [facility] [phone] * LIPASE BLOOD (07/31/2021 6:30 PM CDT) Lipase 31 8 - 78 U/L 07/31/2021 7:49 PM CDT [facility] Blood BLOOD SPECIMEN / Unknown Venipuncture / Unknown 07/31/2021 6:30 PM CDT 07/31/2021 6:36 PM CDT Binh Cabrera MD LAB - CHEMISTRY ORD ERABLES Performing Organization Address [facility]/ZIP Co de Phone Number [address] [address], [place] [phone] * CK BLOOD (07/31/2021 6:30 PM CDT) CK Total 162 30 - 200 U/L 07/31/2021 7:07 PM CDT [facility] Blood BLOOD SPECIMEN / Unknown Venipuncture / Unknown 07/31/2021 6:30 PM CDT 07/31/2021 6:36 PM CDT Binh Cabrera MD LAB - CHEMISTRY ORD ERABLES [address] [place] [address], [facility] [phone] * AMYLASE BLOOD (07/31/2021 6:30 PM CDT) Amylase 86 25 - 125 U/L 07/31/2021 7:07 PM CDT [facility] Blood BLOOD SPECIMEN / Unknown Venipuncture / Unknown 07/31/2021 6:30 PM CDT 07/31/2021 6:36 PM CDT Binh Cabrera MD LAB - CHEMISTRY ORD ERABLES [address] [address], [facility] [phone] * (ABNORMAL) ALCOHOL ETHYL BLOOD (07/31/2021 6:30 PM CDT) Ethanol (mg/dL) 69(H) <10 mg/dL 7:07 PM CDT [facility] Ethanol Calculated (g/dL) 0.069(H) <0.010 g/dL 07/31/2021 7:07 PM CDT [facility] Blood BLOOD SPECIMEN / Unknown Venipuncture / Unknown 07/31/2021 6:30 PM CDT 07/31/2021 6:36 PM CDT Narrative [facility] - 07/31/2021 7:07 PM CDT Ethanol Interp <10: None Detected. Depression of MATERIALS PLANNING ANALYST: >100 mg/dl Potentially Critical: >250 mg/dl Potentially [...] - CHEMISTRY ORD ERABLES Performing Organization Address City/[facility]/ZIP Co de Phone Number [address] [address], [facility] [phone] * XR PELVIS 1 OR 2VW (07/31/2021 6:25 PM CDT) Anatomical Region Laterality Modality Pelvis Radiographic Ophelia ging 07/31/2021 6:51 PM CDT Impressions 08/01/2021 11:01 AM CDT IMPRESSION: No acute fracture identified. Report dictated by Seven Candelario DO (residential door unit installer). Dr. JELANI Eng have personally reviewed and [...] Report dictated by Seven Candelario DO (residential door unit installer). Dr. JELANI Eng have personally reviewed and [...] Report dictated by Seven Candelario DO (residential door unit installer). Dr. JELANI Eng have personally reviewed and [...] Report dictated by Seven Candelario DO (residential door unit installer). I, Dr. JELANI MAC have personally reviewed and interpreted this examination/study. This report was electronically signed by JELANI MAC on 08/01/2021 11:00 AM . Binh Cabrera MD DIAGNOSTIC IMAGING ORDERABLES Care Teams Collections Agent Relationship Specialty Start Date End Date Reid, LENNOX Abdul-KAMAR [address] [place] [address] PCP - General 07/06/21
[2024-05-05 20:42] VITALS: BP 110/63; PULSE 69; RESP 17; O2SAT 100
--- NOTE | 2024-05-05 20:48 | PC.NURSE ---
Patient taken to CT via w/c at this time.
[2024-05-05] MEDS: MECLIZINE HCL 25 MG TABLET PO (21:04)
[2024-05-05] MEDS: ACETAMINOPHEN 500 MG TABLET 1000 MG PO (21:04)
--- NOTE | 2024-05-05 21:08 | ED.DIZZY ---
HPI - Dizziness General Chief Complaint: Dizziness Stated Complaint: DIZZINESS NAUSEA,WEAKNESS Time Seen by Provider: 05/05/24 19:41 Source: patient Mode of arrival: ambulatory Limitations: no limitations History of Present Illness HPI Narrative: Patient is a 29-year-old female who presents the ED with report of headache and dizziness. Patient reports she has had persistent dizziness, described as though the room is spinning since yesterday afternoon around 11:00 a.m. Dizziness has been constant. Worse with any type of movement, sitting upright, opening eyes. States everything seems to be spinning to the right. She also reports having a diffuse frontal headache, nausea, vomiting, bilateral blurry vision. Has been taking Dramamine and Sudafed at home without improvement. Denies history of similar symptoms. Denies previous history of vertigo or migraines. Denies focal numbness or weakness. Related Data Home Medications ?Medication ?Instructions ?Recorded ?Confirmed ?Last Taken ?Type sertraline 100 mg tablet (Zoloft) 100 mg PO HS 05/08/19 02/24/22 11/30/21 20:00 History Allergies Allergy/AdvReac Type Severity Reaction Status Date / Time metoclopramide (From Reglan) Allergy Intermediate Agitated Verified 05/05/24 20:41 metronidazole Allergy Mild ITCHING,JOYCE Verified 05/05/24 20:41 H morphine Allergy Mild h/a and Verified 05/05/24 20:41 lightheaded promethazine AdvReac Intermediate Dizziness Verified 05/05/24 20:41 Review of Systems Review of Systems: All systems reviewed & are unremarkable except as noted in HPI. All systems reviewed & are unremarkable except as noted in HPI and below PMFSH Past Medical History Medical History Asthma Kidney calculi Depression Anxiety Surgical History Surgical History History of mandibular surgery for TMJ History of tonsillectomy History of x2 Family History Family History Father Anxiety Depression Hypertension Social History Social History Social History: The patient lives in [place] with her boyfriend, there 2-1/2-year-old daughter, and her 7-month-old daughter. 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 She drinks alcohol socially and in moderation. No drug use. She designates her mother is her surrogate decision maker and she wishes to be a full code. Smoking status: Former smoker Tobacco type: e-cigarettes/vaping Second hand tobacco smoke exposure: Yes Smoking end date: 09/11/21 Alcohol intake: never Alcohol use details: 6/MONTH Substance use: never Substance use type: does not use Living arrangements: with family Gender identity (if verbalized by the patient): Female Spiritual care concerns: No Agree to blood products: Yes Exam Narrative: GENERAL: Mildly uncomfortable appearing, well-nourished, non-toxic, in no acute distress. HEAD: Normocephalic, atraumatic. EYES: PERRL/EOMI, conjunctiva clear. Patient able to follow movement of finger, but reported severe dizziness with eye movement ENT: R TM clear. L TM slightly erythematous but nonbulging. No significant serous effusion. No cerumen impaction RESPIRATORY: Airway patent, respirations nonlabored. Clear to auscultation bilaterally, no rales, rhonchi, wheezing. CARDIOVASCULAR: Regular rate and rhythm without murmurs, rubs, or gallops. MUSCULOSKELETAL: Moves all extremities. No gross deformities. SKIN: Warm, dry, normal color. NEURO: A&O X3. Speech clear. Cranial nerves II-XII grossly intact. No ataxic movements. No focal deficits. PSYCHIATRIC: Appropriate mood and affect. Normal interaction. Course Vital Signs Vital signs: Vital Signs Temperature 97.3 F L 05/05/24 17:45 Pulse Rate 86 05/05/24 17:45 Respiratory Rate 16 05/05/24 17:45 Blood Pressure 128/74 05/05/24 17:45 Pulse Oximetry 100 05/05/24 17:45 Oxygen Delivery Room Air 05/05/24 17:45 Temperature 97.3 F L 05/05/24 17:45 Pulse Rate 90 05/05/24 23:18 Respiratory Rate 17 05/05/24 23:18 Blood Pressure 116/76 02/22/25 23:18 Pulse Oximetry 100 05/05/24 23:18 Oxygen Delivery Room Air 05/05/24 20:42 MDM - Dizziness MDM Narrative Medical decision making narrative: Patient presented to ED with headache, room spinning dizziness, nausea, vomiting. Vital signs are stable upon arrival. Patient mildly uncomfortable appearing. She is neurologically intact upon my exam. No focal deficits. No evidence of central cause of vertigo. Symptoms are worse with opening eyes, moving head, sitting upright. Seem most consistent with BPPV. Will attempt meclizine as well as migraine cocktail. CT brain was obtained and without acute findings. Patient is feeling somewhat improved with supportive therapy in the ED. Still feeling somewhat dizzy, but wanting to go home at this time. Headache and nausea resolved. Offered additional medications/fluid/workup, however patient declined. States she wants to go home and sleep. Discussed likelihood of BPPV, continued management of such. Will discharge with meclizine and Zofran for home use. Will also give instructions on Santi maneuver. Recommended close follow-up with PCP for further evaluation. Patient voiced understanding. Given strict return precautions. She agrees with plan. Vital signs stable at time of D/C. Medical Records Attestation: I reviewed the patient's medical records. Imaging Data Attestation: I personally reviewed and interpreted this imaging study as follows: Radiologist's impression: ITS Impressions Head CT 05/05/24 21:06 IMPRESSION: 1. Normal brain. Discharge Plan Discharge Clinical Impression: Benign paroxysmal positional vertigo Qualifiers: Laterality: unspecified laterality Qualified Code(s): H81.10 - Benign paroxysmal vertigo, unspecified ear Headache Qualifiers: Headache type: unspecified Headache chronicity pattern: unspecified pattern Intractability: not intractable Qualified Code(s): R51.9 - Headache, unspecified Patient Disposition: Home, Self-Care Condition: Stable Instructions: Antibiotic Form, Migraine Headache (ED), Vertigo (ED), Benign Paroxysmal Positional Vertigo (ED), Dizziness (ED) Additional Instructions: Utilize meclizine as needed for further dizziness. Utilize Zofran as needed for further nausea. Rest and stay well hydrated. Recommend low light/low stimulus environment, limiting screen time. You may continue Tylenol and ibuprofen as needed for headaches. You may try the Santi maneuvers to help with dizziness. Follow-up with your primary care doctor for further evaluation. Return to the ED if you experience worsening or severe symptoms, unable to keep down food or drink, numbness or weakness of arm or leg, severe headache, passing out, or any other symptoms of concern. Patient Language: Albanian Prescriptions: New meclizine 25 mg tablet 25 mg PO TID PRN (Reason: dizziness) Qty: 20 0RF ondansetron 4 mg tablet,disintegrating 4 mg PO Q8H PRN (Reason: nausea and vomiting) Qty: 15 0RF No Action methylprednisolone [Medrol (Oz)] 4 mg tablets,dose pack 4 mg PO DAILY Qty: 21 0RF Rx Instructions: take per package instruction penicillin V potassium 500 mg tablet 500 mg PO Q12H 10 Days Qty: 20 0RF sertraline [Zoloft] 100 mg Tablet 100 mg PO HS Follow-up/Referrals: Jeanette,Chantell Marsh APN [Primary Care Provider] - Time of Disposition: 22:59
[2024-05-05] MEDS: diphenhydrAMINE HCl INJ 50 MG/ML VIAL 25 MG IV PUSH (21:10)
[2024-05-05] MEDS: SODIUM CHLORIDE 0.9% IV 1,000 ML 999 ML IV CONT (21:10)
[2024-05-05] MEDS: PROCHLORPERAZINE EDISYLATE 10 MG/2 ML VIAL IV PUSH (21:11)
[2024-05-05] MEDS: KETOROLAC 30 MG/ML VIAL (*BKC) IV PUSH (21:23)
[2024-05-05] MEDS: diazePAM INJ (*CRX) 10 MG/2 ML SYRINGE 2 MG IV PUSH (22:13)
--- NOTE | 2024-05-05 22:20 | PC.NURSE ---
Patient states she is wanting to go home. PA notified.
[2024-05-05 23:18] VITALS: BP 116/76; PULSE 90; RESP 17; O2SAT 100
== END 2024-05-05 23:20 | disposition home or self-care (01) ==
PROVIDERS: Emergency Provider Physician Assistant; PCP Nurse Practitioner Family
DX: R51.9 Headache, unspecified (principal); H81.10 Benign paroxysmal vertigo, unspecified ear; J45.909 Unspecified asthma, uncomplicated; F41.9 Anxiety disorder, unspecified; F32.A Depression, unspecified; Z87.442 Personal history of urinary calculi; Z87.891 Personal history of nicotine dependence
CPT/HCPCS: 70450; 96361; 96374; 96375; 99284; A9270; J0780; J1200; J1885; J3360; J7030